=== PATIENT | female | born 1940 | race Caucasian/White ===

== ENCOUNTER 2018-03-21 18:23 | Inpatient (IN) | payer MEDICAID, OTHER ==
[2018-03-21 18:33] LABS: Basophils # (Auto) 0.1 K/mm3 (0.0-0.1); Basophils % (Auto) 1.4 % (0.0-1.8); Eosinophils # (Auto) 0.2 K/mm3 (0.0-0.4); Eosinophils % (Auto) 2.9 % (0.0-4.3); Hemoglobin 14.4 gm/dl (10.1-14.3); Lymphocytes # (Auto) 2.2 K/mm3 (1.2-5.4); Lymphocytes % (Auto) 34.8 % (13.4-35.0); Mean Corpuscular HGB Conc 33 % (30-34); Mean Corpuscular Hemoglobin 30 pg (28-32); Mean Corpuscular Volume 92 fl (79-97); Monocytes # (Auto) 0.6 K/mm3 (0.0-0.8); Monocytes % (Auto) 9.4 % (0.0-7.3); Platelet Count 173 K/mm3 (140-440); Red Blood Count 4.79 M/mm3 (3.65-5.03); Red Cell Distribution Width 14.2 % (13.2-15.2)
[2018-03-21] MEDS ORDERED: NACL ONE (18:39)
--- NOTE | 2018-03-21 18:43 | Cat Scan Report ---
FINAL REPORT PROCEDURE: CT HEAD/BRAIN WO CON TECHNIQUE: Computerized tomography of the head was performed without contrast material. HISTORY: neuro deficits < 6hrs or sx present upon awakening COMPARISON: No prior studies are available for comparison. FINDINGS: There is focal encephalomalacia in the left posterior frontal lobe. Chronic appearing lacunar infarct is seen in the left caudate head. There is no CT evidence of intracranial mass, hemorrhage, acute territorial infarction, or hydrocephalus. Calvarium is intact. Visualized paranasal sinuses and mastoids are aerated. IMPRESSION: No CT evidence of acute intracranial abnormality. Chronic ischemic changes are present.
[2018-03-21 18:45] LABS: BUN/Creatinine Ratio 22; Blood Urea Nitrogen 22 mg/dL (7-17); Hemolysis Index 41; INR 1.63 (0.87-1.13)
[2018-03-21 18:46] LABS: Partial Thromboplastin Time 43.9 Sec. (24.2-36.6)
[2018-03-21] MEDS ORDERED: ASPIRIN PO ONE (19:06)
[2018-03-21 19:10] LABS: Albumin 4.6 g/dL (3.9-5)
[2018-03-21 19:14] LABS: Bilirubin,Direct < 0.2 mg/dL (0-0.2)
--- NOTE | 2018-03-21 19:18 | Emergency Department Report ---
- General Stated complaint: STROKE Time Seen by Provider: 03/21/18 18:27 Source: family, EMS Mode of arrival: Stretcher Limitations: Altered Mental Status - History of Present Illness MD Complaint: focal weakness, numbness, lack of energy, difficulty walking -: Sudden Time: 17:30 Location: [facility] [place], RUE, LLE, RLE Severity: severe Severity scale (0 -10): 10 Quality: numbness, constant Consistency: constant Improves with: none Worsens with: none Context: other (None) Associated Symptoms: confusion. denies: chest pain, fever/chills, nausea/ vomiting, shortness of breath, syncope - Related Data Home Medications Medication Instructions Recorded Confirmed Last Taken Hydrochlorothiazide [HCTZ] 25 mg PO QDAY 10/01/13 03/21/18 10/01/13 09:00 25 Losartan [Cozaar] 100 mg PO DAILY 10/01/13 03/21/18 10/01/13 08:30 100 Metoprolol [Lopressor] 25 mg PO DAILY 10/01/13 03/21/18 10/01/13 09:00 Warfarin [Coumadin] 1.5 mg PO QDAY 10/01/13 03/21/18 09/30/13 17:00 1mg Warfarin [Coumadin] 1 mg PO DAILY 03/21/18 03/21/18 Unknown Allergies Allergy/AdvReac Type Severity Reaction Status Date / Time No Known Allergies Allergy Unverified 08/26/13 09:19 ED Review of Systems ROS: Stated complaint: STROKE Other details as noted in HPI Comment: All other systems reviewed and negative Constitutional: malaise, weakness Eyes: denies: vision change ENT: other (Aphesia) Respiratory: no symptoms reported Cardiovascular: denies: chest pain, palpitations, syncope Endocrine: no symptoms reported Gastrointestinal: denies: abdominal pain, vomiting, diarrhea Genitourinary: denies: dysuria, frequency, hematuria Musculoskeletal: as per HPI Skin: denies: rash, lesions, change in color Neurological: weakness, numbness, paresthesias, confusion Psychiatric: denies: auditory hallucinations, suicidal thoughts Hematological/Lymphatic: denies: easy bleeding, easy bruising ED Past Medical Hx - Past Medical History Hx Hypertension: Yes Hx Arthritis: Yes (Hands) - Surgical History Hx Open Heart Surgery: Yes Hx Appendectomy: Yes Additional Surgical History: Mitral valve surgery 13 yrs ago - Social History Smoking Status: Former Smoker Substance Use Type: None - Medications Home Medications: Home Medications Medication Instructions Recorded Confirmed Last Taken Type Hydrochlorothiazide [HCTZ] 25 mg PO QDAY 10/01/13 03/21/18 10/01/13 09:00 History 25 Losartan [Cozaar] 100 mg PO DAILY 10/01/13 03/21/18 10/01/13 08:30 History 100 Metoprolol [Lopressor] 25 mg PO DAILY 10/01/13 03/21/18 10/01/13 09:00 History Warfarin [Coumadin] 1.5 mg PO QDAY 10/01/13 03/21/18 09/30/13 17:00 History 1mg Warfarin [Coumadin] 1 mg PO DAILY 03/21/18 03/21/18 Unknown History ED Physical Exam - General Limitations: Altered Mental Status General appearance: alert, in no apparent distress - Head Head exam: Present: atraumatic, normocephalic, normal inspection - Eye Eye exam: Present: normal appearance, PERRL - ENT ENT exam: Present: normal orophraynx - Neck Neck exam: Present: normal inspection, full ROM - Respiratory Respiratory exam: Present: normal lung sounds bilaterally. Absent: respiratory distress, wheezes - Cardiovascular Cardiovascular Exam: Present: regular rate, normal rhythm, normal heart sounds - GI/Abdominal GI/Abdominal exam: Present: soft, normal bowel sounds. Absent: tenderness, guarding - Extremities Exam Extremities exam: Present: normal inspection, normal capillary refill - Back Exam Back exam: Present: normal inspection - Neurological Exam Neurological exam: Present: alert, other (Unable to do the NIHSS because patient is not following comands.) - Psychiatric Psychiatric exam: Present: depressed - Skin Skin exam: Present: warm, dry, intact - Assessment Assessment Interval: Baseline - Level of Consciousness 1a. Level of Consciousness: alert - LOC Questions 1b. LOC Questions: answers no questions correctly - LOC Command 1c. LOC Commands: performs no tasks correctly ED Course Vital Signs 03/21/18 03/21/18 03/21/18 18:27 18:32 19:15 Temperature 98.4 F Pulse Rate 92 H 102 H Respiratory 18 26 H Rate Blood Pressure 175/83 172/77 O2 Sat by Pulse 94 94 92 Oximetry 03/21/18 03/21/18 19:30 19:45 Temperature Pulse Rate 100 H 102 H Respiratory 26 H Rate Blood Pressure 174/72 O2 Sat by Pulse 96 Oximetry - Consultations Consultation #1: 03/21/18 18:30 I consulted the neurologist on-call Dr. Martinez. She examined the patient using the telestroke machine. She recommends CTA of the brain and neck. She also said patient is not a candidate for TPA because patient is on Coumadin. However she wants patient to be given aspirin 325 mg by mouth. She will recommend MRI of the brain If the CTA of the head and neck is negative. She also recommends admitting the patient to the hospital for further evaluation and management. ED Medical Decision Making - Lab Data Result diagrams: 03/21/18 18:20 03/21/18 18:20 - EKG Data -: EKG Interpreted by Me EKG shows normal: sinus rhythm Rate: normal - EKG Data When compared to previous EKG there are: previous EKG unavailable Interpretation: nonspecific ST-T wave cheryl, other (Low voltage) - Differential Diagnosis Bilateral Upper and Lower Extremity Weakness. Critical care attestation.: If time is entered above; I have spent that time in minutes in the direct care of this critically ill patient, excluding procedure time. ED Disposition Clinical Impression: Weakness, Bilateral leg paresthesia, Aphasia, Numbness and tingling in both hands HTN (hypertension) Qualifiers: Hypertension type: essential hypertension Qualified Code(s): I10 - Essential ( primary) hypertension Disposition: OP ADMIT IP TO THIS HOSP Is pt being admited?: Yes Does the pt Need Aspirin: Yes Condition: Stable Instructions: Hypertension (ED)
[2018-03-21 19:34] LABS: Alanine Aminotransferase < 5 units/L (7-56)
--- NOTE | 2018-03-21 19:49 | Cat Scan Report ---
FINAL REPORT EXAM: CT ANGIO NECK HISTORY: CVA TECHNIQUE: CT angiogram neck with intravenous contrast and multiplanar reconstructions PRIORS: None. FINDINGS: Origin the great vessels is unremarkable. Common carotid arteries are normal in caliber At the proximal left ICA there is noncalcified plaque with ulceration. No evidence for hemodynamically significant stenosis. There is mild plaque formation proximal right ICA. The distal ICAs are unremarkable without evidence for stenosis or occlusion Both vertebral arteries are identified and are unremarkable. IMPRESSION: Mild plaque formation at the proximal ICAs without evidence for hemodynamically significant stenosis. There is appearance suggestive of an ulcerated plaque at the left carotid bulb
--- NOTE | 2018-03-21 19:50 | Cat Scan Report ---
FINAL REPORT EXAM: CT ANGIO HEAD HISTORY: CVA CT angiogram head with intravenous contrast multiplanar reconstructions PRIORS: None. FINDINGS: Normal appearance of the intracranial portion of the carotid arteries. The MCA and JEREMY distributions are unremarkable Distal vertebral arteries are intact. The basilar and ESL TUTOR circulation is within normal limits No evidence for major vascular occlusion or aneurysm IMPRESSION: Normal CTA head
[2018-03-21] MEDS ORDERED: ASPIRIN ONE (21:26)
[2018-03-21] MEDS ORDERED: ZOFRAN IV PRN (22:46)
[2018-03-21] MEDS ORDERED: DULCOLAX PR PRN (22:46)
[2018-03-21] MEDS ORDERED: SODIUM CHLORIDE FLUSH SYRINGE 10 ML IV PRN (22:46)
[2018-03-21] MEDS ORDERED: APRESOLINE IV PRN (22:46)
--- NOTE | 2018-03-21 22:46 | History and Physical Report ---
History of Present Illness Date of examination: 03/21/18 Date of admission: 03/21/18 21:56 History of present illness: 77 year old woman with history of hypertension, MVR on Coumadin comes to the emergency room with complaints of not able to speak at around 5:30pm. Family also states that she was not able to move her arms and legs. They brought her to the emergency room for evaluation. Patient was not a TPA candidate as she is on Coumadin. Her speech has returned, also she is regaining strength in the legs but she is not back at baseline Review of systems Constitutional: no weight loss, chills Ears, eyes, nose, mouth and throat: no nasal congestion, no nasal discharge, no sinus pressure, no vision change, no red eye. Neck: No neck pain or rigidity. Cardiovascular: no chest pain, palpitations Respiratory: No cough, shortness of breath Gastrointestinal: no abdominal pain, hematochezia Genitourinary : no dysuria, frequency , no hematuria Musculoskeletal: no joint swelling or muscle ache Integumentary: no rash, no pruritis Neurological: no parathesias, no numbness, no focal weakness Endocrine: no cold or heat intolerance, no polyuria or polydipsia Hematologic/Lymphatic: no easy bruising, no easy bleeding, no gland swelling Allergic/Immunologic: no urticaria, no angioedema. PAST MEDICAL HISTORY: hypertension, MVR on Coumadin PAST SURGICAL HISTORY: Appendectomy, mitral valve replacement, and nasal surgery , SOCIAL HISTORY: Denies alcohol, tobacco, drugs FAMILY HISTORY: Hypertension Medications and Allergies Allergies Allergy/AdvReac Type Severity Reaction Status Date / Time No Known Allergies Allergy Unverified 08/26/13 09:19 Home Medications Medication Instructions Recorded Confirmed Last Taken Type Hydrochlorothiazide [HCTZ] 25 mg PO QDAY 10/01/13 03/21/18 10/01/13 09:00 History 25 Losartan [Cozaar] 100 mg PO DAILY 10/01/13 03/21/18 10/01/13 08:30 History 100 Metoprolol [Lopressor] 25 mg PO DAILY 10/01/13 03/21/18 10/01/13 09:00 History Warfarin [Coumadin] 1.5 mg PO QPM 10/01/13 03/21/18 09/30/13 17:00 History 1mg Warfarin [Coumadin] 1 mg PO QPM 03/21/18 03/21/18 Unknown History Active Meds: Active Medications Warfarin Sodium (Coumadin) 5 mg PO ONCE ONE; Protocol Stop: 03/22/18 22:46 Warfarin Sodium (Coumadin Pharmacy To Dose) 1 each PO PKCONSULT RADHA Exam - Physical Exam Narrative exam: Gen. appearance: Patient lying in bed, no apparent distress HEENT: Normocephalic, atraumatic, pupils equally round and reactive to light, extraocular movement intact, and no sclericterus,. No JVD or thyromegaly or nodule,neck supple, no carotid bruit ,mucous membranes moist, no exudate or erythema Heart: S1, S2, regular rate and rhythm Lungs: Clear to auscultation bilaterally, breathing comfortable Abdomen: Positive bowel sounds, nontender, nondistended, no organomegaly Extremity: No edema, cyanosis, clubbing Skin: No rash, nodules, warm, dry Neuro: Oriented 3, facial droop, otherwise normal, speech is fluent, motor 3/5 in lower extremity, poor effort in upper extremity, ensory intact - Constitutional Vitals: Temp Pulse Resp BP Pulse Ox 98.4 F 90 17 142/51 95 03/21/18 18:27 03/21/18 22:00 03/21/18 22:00 03/21/18 22:00 03/21/18 22:00 Results - Labs CBC & Chem 7: 03/21/18 18:20 03/21/18 18:20 Labs: Abnormal lab results 03/21/18 03/21/18 03/21/18 Range/Units 18:20 18:20 18:20 Hgb 14.4 H (10.1-14.3) gm/dl Hct 44.0 H (30.3-42.9) % [place] % (Auto) 9.4 H (0.0-7.3) % PT 20.3 H (12.2-14.9) Sec. INR 1.63 H (0.87-1.13) APTT 43.9 H (24.2-36.6) Sec. Sodium 136 L (137-145) mmol/L Chloride 96.2 L (98-107) mmol/L BUN 22 H (7-17) mg/dL Glucose 148 H (65-100) mg/dL AST (5-40) units/L ALT (7-56) units/L 03/21/18 Range/Units 18:20 Hgb (10.1-14.3) gm/dl Hct (30.3-42.9) % [place] % (Auto) (0.0-7.3) % PT (12.2-14.9) Sec. INR (0.87-1.13) APTT (24.2-36.6) Sec. Sodium (137-145) mmol/L Chloride (98-107) mmol/L BUN (7-17) mg/dL Glucose (65-100) mg/dL AST < 5 L (5-40) units/L ALT < 5 L (7-56) units/L - Imaging and Cardiology CT Scan - head: report reviewed Assessment and Plan CTA head and neck reviewed Assessment Acute CVA Hypertension Mitral valve replacement with subtherapeutic INR Plan Admit to medicine Obtain MRI of the head, do neuro checks Given a dose of Coumadin now, start statin Type [employer] neurology, physical and additional therapy DVT prophylaxis
[2018-03-22] MEDS ORDERED: COUMADIN PO ONE ×2 (00:15→22:45)
[2018-03-22] MEDS: TYLENOL PO PRN (00:16)
[2018-03-22 05:46] LABS: INR 1.7 (0.87-1.13)
[2018-03-22 05:47] LABS: Partial Thromboplastin Time 41.1 Sec. (24.2-36.6)
--- NOTE | 2018-03-22 10:41 | Progress Note ---
Assessment and Plan Assessment and plan: Acute CVA. Cont Stroke protocol. F/UMRI/MRA. Check ECHO and Carotid US. PT/ OT eval. Neuro consult. Hypertension. Cont antihypertensive meds Mitral valve replacement with subtherapeutic INR. Coumadin to maintain INR 2.5- 3.5 Hx NSTEMI with negative cath 2013 History Interval history: No new issues overnight Hospitalist Physical - Constitutional Vitals: Temp Pulse Resp BP Pulse Ox 98.6 F 93 H 18 130/54 96 03/22/18 07:04 03/22/18 07:04 03/22/18 07:04 03/22/18 07:04 03/22/18 07:04 General appearance: Present: no acute distress, well-nourished - EENT Eyes: Present: PERRL, EOM intact ENT: hearing intact, clear oral mucosa, dentition normal - Neck Neck: Present: supple, normal ROM - Respiratory Respiratory effort: normal Respiratory: bilateral: CTA - Cardiovascular Rhythm: regular Heart Sounds: Present: S1 & S2. Absent: gallop, rub - Extremities Extremities: no ischemia, No edema, Full ROM - Abdominal General gastrointestinal: soft, non-tender, non-distended, normal bowel sounds - Integumentary Integumentary: Present: clear, warm, dry - Neurologic Neurologic: CNII-XII intact, moves all extremities Results - Labs CBC & Chem 7: 03/21/18 18:20 03/21/18 18:20 Labs: Laboratory Last Values WBC 6.2 K/mm3 (4.5-11.0) 03/21/18 18:20 RBC 4.79 M/mm3 (3.65-5.03) 03/21/18 18:20 Hgb 14.4 gm/dl (10.1-14.3) H 03/21/18 18:20 Hct 44.0 % (30.3-42.9) H 03/21/18 18:20 MCV 92 fl (79-97) 03/21/18 18:20 MCH 30 pg (28-32) 03/21/18 18:20 MCHC 33 % (30-34) 03/21/18 18:20 RDW 14.2 % (13.2-15.2) 03/21/18 18:20 Plt Count 173 K/mm3 (140-440) 03/21/18 18:20 Lymph % (Auto) 34.8 % (13.4-35.0) 03/21/18 18:20 [place] % (Auto) 9.4 % (0.0-7.3) H 03/21/18 18:20 Eos % (Auto) 2.9 % (0.0-4.3) 03/21/18 18:20 Baso % (Auto) 1.4 % (0.0-1.8) 03/21/18 18:20 Lymph # 2.2 K/mm3 (1.2-5.4) 03/21/18 18:20 [place] # 0.6 K/mm3 (0.0-0.8) 03/21/18 18:20 Eos # 0.2 K/mm3 (0.0-0.4) 03/21/18 18:20 Baso # 0.1 K/mm3 (0.0-0.1) 03/21/18 18:20 Seg Neutrophils % 51.5 % (40.0-70.0) 03/21/18 18:20 Seg Neutrophils # 3.2 K/mm3 (1.8-7.7) 03/21/18 18:20 PT 21.0 Sec. (12.2-14.9) H 03/22/18 05:06 INR 1.70 (0.87-1.13) H 03/22/18 05:06 APTT 41.1 Sec. (24.2-36.6) H 03/22/18 05:06 Thrombin Time 16.6 Sec. (15.1-19.6) 03/21/18 18:20 Sodium 136 mmol/L (137-145) L 03/21/18 18:20 Potassium 3.8 mmol/L (3.6-5.0) 03/21/18 18:20 Chloride 96.2 mmol/L (98-107) L 03/21/18 18:20 Carbon Dioxide 22 mmol/L (22-30) 03/21/18 18:20 Anion Gap 22 mmol/L 03/21/18 18:20 BUN 22 mg/dL (7-17) H 03/21/18 18:20 Creatinine 1.0 mg/dL (0.7-1.2) 03/21/18 18:20 Estimated GFR 53 ml/min 03/21/18 18:20 BUN/Creatinine Ratio 22 % 03/21/18 18:20 Glucose 148 mg/dL (65-100) H 03/21/18 18:20 POC Glucose 191 (70-105) H 03/22/18 01:36 Calcium 9.0 mg/dL (8.4-10.2) 03/21/18 18:20 Total Bilirubin 0.30 mg/dL (0.1-1.2) 03/21/18 18:20 Direct Bilirubin < 0.2 mg/dL (0-0.2) 03/21/18 18:20 Indirect Bilirubin 0.1 mg/dL 03/21/18 18:20 AST < 5 units/L (5-40) L 03/21/18 18:20 ALT < 5 units/L (7-56) L 03/21/18 18:20 Alkaline Phosphatase 107 units/L (35-129) 03/21/18 18:20 Troponin T < 0.010 ng/mL (0.00-0.029) 03/21/18 18:20 Total Protein 7.9 g/dL (6.3-8.2) 03/21/18 18:20 Albumin 4.6 g/dL (3.9-5) 03/21/18 18:20 Albumin/Globulin Ratio 1.4 % 03/21/18 18:20 Triglycerides 258 mg/dL (2-149) H 03/22/18 05:06 Cholesterol 165 mg/dL (50-199) 03/22/18 05:06 LDL Cholesterol Direct 96 mg/dL (50-130) 03/22/18 05:06 HDL Cholesterol 33 mg/dL (40-59) L 03/22/18 05:06 Cholesterol/HDL Ratio 5.00 % 03/22/18 05:06
--- NOTE | 2018-03-22 12:28 | Consultation ---
History of Present Illness Consult date: 03/22/18 Requesting physician: KEITH DOMINGO Reason for Consult: Acute CVA. Chief complaint: Unable to speak. History of present illness: 77 years old right handed female with a past medical history of HTN, MVR on Coumadin presented for acute onset, unable to speech, both leg weakness, can't ambulate, collapsed. She was home, then noted by family having these symptoms. She was in the windows for IV TPA. However, she was on Coumadin, exclude it. She has stat CTA head and neck, didn't show big artery occlusion. She was admitted for further evaluation and management. Past History Past Medical History: hypertension, other (mitrial valave disease.) Past Surgical History: Other (matrial valve replacement.) Social history: no significant social history, other (remote smoker.) Family history: cancer Medications and Allergies Allergies Allergy/AdvReac Type Severity Reaction Status Date / Time No Known Allergies Allergy Unverified 08/26/13 09:19 Home Medications Medication Instructions Recorded Confirmed Last Taken Type Hydrochlorothiazide [HCTZ] 25 mg PO QDAY 10/01/13 03/21/18 10/01/13 09:00 History 25 Losartan [Cozaar] 100 mg PO DAILY 10/01/13 03/21/18 10/01/13 08:30 History 100 Metoprolol [Lopressor] 25 mg PO DAILY 10/01/13 03/21/18 10/01/13 09:00 History Warfarin [Coumadin] 1.5 mg PO QPM 10/01/13 03/21/18 09/30/13 17:00 History 1mg Warfarin [Coumadin] 1 mg PO QPM 03/21/18 03/21/18 Unknown History Active Meds: Active Medications Acetaminophen (Tylenol) 650 mg PO Q4H PRN PRN Reason: Pain, Mild (1-3) Last Admin: 03/22/18 00:16 Dose: 650 mg Bisacodyl (Dulcolax) 10 mg [place] QDAY PRN PRN Reason: Constipation Hydralazine HCl (Apresoline) 5 mg IV Q6H PRN PRN Reason: Keep SBP between 160-185 mm Hg Last Admin: 03/22/18 00:13 Dose: 5 mg Magnesium Hydroxide (Milk Of Magnesia) 30 ml PO Q4H PRN PRN Reason: Constipation Ondansetron HCl (Zofran) 4 mg IV Q8H PRN PRN Reason: N/V unrelieved by Reglan Sodium Chloride (Sodium Chloride Flush Syringe 10 Ml) 10 ml IV PRN PRN PRN Reason: LINE FLUSH Warfarin Sodium (Coumadin Pharmacy To Dose) 1 each PO PKCONSULT [facility] Warfarin Sodium (Coumadin) 5 mg PO DAILY@1700 RADHA Review of Systems All systems: negative Physical Examination - Vital Signs Vital Signs: Vital Signs Temp Pulse Resp BP Pulse Ox 98.4 F 92 H 18 175/83 94 03/21/18 18:27 03/21/18 18:27 03/21/18 18:27 03/21/18 18:27 03/21/18 18:27 - Constitutional General appearance: comfortable - EENT EENT: Present: ATNC, PERRL - Respiratory Respiratory: Present: chest non-tender, lungs clear, normal breath sounds, no respiratory distress - Cardiovascular Cardiovascular: Present: no murmurs Extremities: Present: no peripheral edema bilatateraly, no clubbing, cyanosis - Gastrointestinal Gastrointestinal: Present: normoactive bowel sounds, soft, non-tender - Integumentary Integumentary: Present: normal - Neurologic Cranial nerve examination: PERRL, EOMI, face symmetric, other (Left side vision loss, not new, long time.) Speech examination: intact Detailed motor examination: other (Nother upper 4/5, lowers 2/5, right side worse.) Detailed sensory examination: other (Decreased sensation in the side side.) Reflex and gait examination: intact Reflexes: 1+: ankle, bicep, knee, tricep - Psychiatric Psychiatric: Present: mood/affect appropriate - Assessment Assessment Interval: Baseline - Level of Consciousness 1a. Level of Consciousness: alert - LOC Questions 1b. LOC Questions: answers no questions correctly - LOC Command 1c. LOC Commands: performs no tasks correctly - Best Gaze 2. Best Gaze: normal - Visual 3. Visual: no visual loss - Facial Palsy 4. Facial Palsy: normal symmetrical movement - Motor Arm 5b. Motor Arm Right: no drift 5a. Motor Arm Left: no drift - Motor Leg 6a. Motor Leg Left: no drift 6b. Motor Leg Right: no drift - Limb Ataxia 7. Limb Ataxia: absent - Sensory 8. Sensory: normal - Best Language 9. Best Language: no aphasia - Dysarthria 10. Dysarthria: normal - Extinction and Inattention 11. Extinction/Inattention: no abnormality - Scoring Total Score: 4 Stroke Severity: Minor Stroke Results - Laboratory Findings CBC and BMP: 03/21/18 18:20 03/21/18 18:20 Abnormal Lab Findings: Abnormal Labs 03/21/18 03/21/18 03/21/18 18:20 18:20 18:20 Hgb 14.4 H Hct 44.0 H [place] % (Auto) 9.4 H PT 20.3 H INR 1.63 H APTT 43.9 H Sodium 136 L Chloride 96.2 L BUN 22 H Glucose 148 H POC Glucose AST ALT Triglycerides HDL Cholesterol 03/21/18 03/22/18 03/22/18 18:20 01:36 05:06 Hgb Hct [place] % (Auto) PT 21.0 H INR 1.70 H APTT 41.1 H Sodium Chloride BUN Glucose POC Glucose 191 H AST < 5 L ALT < 5 L Triglycerides HDL Cholesterol 03/22/18 05:06 Hgb Hct [place] % (Auto) PT INR APTT Sodium Chloride BUN Glucose POC Glucose AST ALT Triglycerides 258 H HDL Cholesterol 33 L Assessment and Plan 1. Acute onset, unable to speak, both leg weakness, now all extremities weakness. Acute CVA as differential, probably brain stem. OT/PT, rehab and speech pathology. Pending brain MRI without contrast. Stat CTA head and neck, no big artery occlusion. 2. She is on Coumadin. Cervical spinal epidural or subdural hematoma as differential. Cervical and thoracic MRI without contrast. If spinal hematoma, consult neurosurgery for possible evacuation and decompression. 3. If transverse myelitis or neuromyelitis optica, suggest high dose steroid and LP, CSF studies. 4. If acute disseminated encephalomyelitis. Also suggest high dose steroid. 5. Mitrial valve replacement on Coumadin. Continue Coumadin and have INR in therapeutic range. 6. HTN. Controlled. Medicine. LDL 96. Pending A1c. 7. Plan discussed with her, her daughter and her son in law. 8. Will follow up with you. 9. If D/C, F/U with neurology in 4-6 weeks.
--- NOTE | 2018-03-22 15:27 | Magnetic Resonance Report ---
MRI OF THE BRAIN WITHOUT CONTRAST: HISTORY: CVA COMPARISON: CT head dated 03/21/18. PROCEDURE: Multiplanar, multisequence MR imaging of the brain without IV contrast was performed. FINDINGS: Diffusion images demonstrate 4 small areas of diffusion restriction measuring less than 1 cm within the left high radiata, left subinsular cortex and left posterior temporal white matter. There is no evidence for hemorrhage, mass or extra-axial fluid collection. A chronic, small cortical infarct high in the left occipital lobe is noted on flair image 18 measuring 1.5 x 1.4 cm. There are multiple chronic focal infarcts in the right cerebellar hemisphere which is best appreciated on T2 axial image 6. There are approximately 5 chronic focal infarcts in the right cerebellum. A single focal chronic infarct is noted in the left cerebellum. Mild cortical volume loss and moderate chronic white matter changes are identified. The midline structures are central. The basal cisterns are patent. Normal ventricular size. The orbital cavities and sella turcica demonstrate no abnormality. The visualized paranasal sinuses and mastoid air cells are well aerated. IMPRESSION: 4 small foci of subacute ischemia are identified in the left MCA distribution as described. Multiple small chronic focal infarcts in the left occipital lobe and bilateral cerebellar hemispheres. Volume loss. Chronic white matter changes.
[2018-03-22] MEDS ORDERED: COUMADIN PO SCH (17:00)
[2018-03-23 06:15] LABS: Basophils # (Auto) 0.1 K/mm3 (0.0-0.1); Basophils % (Auto) 1.3 % (0.0-1.8); Eosinophils # (Auto) 0.2 K/mm3 (0.0-0.4); Eosinophils % (Auto) 3.5 % (0.0-4.3); Hematocrit 40.7 % (30.3-42.9); Hemoglobin 13.4 gm/dl (10.1-14.3); Lymphocytes # (Auto) 1.3 K/mm3 (1.2-5.4); Lymphocytes % (Auto) 19.8 % (13.4-35.0); Mean Corpuscular HGB Conc 33 % (30-34); Mean Corpuscular Hemoglobin 30 pg (28-32); Mean Corpuscular Volume 91 fl (79-97); Monocytes # (Auto) 0.6 K/mm3 (0.0-0.8); Monocytes % (Auto) 8.9 % (0.0-7.3); Platelet Count 170 K/mm3 (140-440); Red Blood Count 4.49 M/mm3 (3.65-5.03); Red Cell Distribution Width 14.5 % (13.2-15.2)
[2018-03-23 06:26] LABS: INR 2.15 (0.87-1.13)
[2018-03-23 06:46] LABS: BUN/Creatinine Ratio 28; Blood Urea Nitrogen 22 mg/dL (7-17); Calcium 8.9 mg/dL (8.4-10.2); Hemolysis Index 11
--- NOTE | 2018-03-23 10:19 | Progress Note ---
Assessment and Plan 1. Acute onset, unable to speak, both leg weakness, now all extremities weakness. Speech back to normal. Brain MRI without contrast, multiple embolic infarcts. Probably cardiogenic. TTE, EF 60-65%, no vegetation or thrombus reported. OT/PT, rehab and speech pathology. Stat CTA head and neck, no big artery occlusion, no significant stenosis. 2. All extremities weakness. Cervical and lumbar MRI without contrast. 3. Mitrial valve replacement on Coumadin. Continue Coumadin and have INR in therapeutic range. 4. Right leg pains. Right leg DVT as differential. Suggest ultrasound. 5. HTN. Controlled. Medicine. LDL 96. Pending A1c. 6. Plan discussed with her, her daughter and her nurse. 7. Will follow up with you. 8. If D/C, F/U with neurology in 4-6 weeks. Subjective Date of service: 03/23/18 Principal diagnosis: Embolic CVA. Interval history: Improved. Right leg pain. Objective - Vital Sign Vital Signs - 12hr 03/22/18 03/23/18 03/23/18 23:34 00:04 06:06 Temperature 97.2 F L 98.3 F Pulse Rate 101 H 96 H 84 Respiratory 18 20 Rate Blood Pressure 126/54 Blood Pressure 126/54 111/68 [Left] O2 Sat by Pulse 98 98 98 Oximetry 03/23/18 07:32 Temperature 98.0 F Pulse Rate 91 H Respiratory 18 Rate Blood Pressure 119/49 Blood Pressure [Left] O2 Sat by Pulse 96 Oximetry - General Apperance Constitutional: comfortable - EENT EENT: ATNC, PERRL - Respiratory Respiratory: lungs clear, normal breath sounds - Cardiovascular Cardiovascular: regular rate, no murmurs Extremities: no clubbing, cyanosis - Gastrointestinal Gastrointestinal: soft, non-tender - Integumentary Integumentary: normal - Neurologic Cranial nerve examination: PERRL, EOMI, intact Detailed motor examination: other (Right upper 3/5, right lower 2/5, left side 4 /5. ) Detailed sensory examination: other (Right side decreased sensation. Right leg tenderness, right leg radidation pains.) Reflexes: 1+: ankle, bicep, knee, tricep - Musculoskeletal Musculoskeletal: pain in joint - Psychiatric Psychiatric: mood/affect appropriate - Laboratory Findings CBC and BMP: 03/23/18 05:15 03/23/18 05:15 Abnormal Lab Findings: Abnormal Labs 03/21/18 03/21/18 03/21/18 18:20 18:20 18:20 Hgb 14.4 H Hct 44.0 H [place] % (Auto) 9.4 H PT 20.3 H INR 1.63 H APTT 43.9 H Sodium 136 L Chloride 96.2 L BUN 22 H Glucose 148 H POC Glucose AST ALT Triglycerides HDL Cholesterol 03/21/18 03/22/18 03/22/18 18:20 01:36 05:06 Hgb Hct [place] % (Auto) PT 21.0 H INR 1.70 H APTT 41.1 H Sodium Chloride BUN Glucose POC Glucose 191 H AST < 5 L ALT < 5 L Triglycerides HDL Cholesterol 03/22/18 03/22/18 03/23/18 05:06 16:18 05:15 Hgb Hct [place] % (Auto) PT 25.4 H INR 2.15 H APTT Sodium Chloride BUN Glucose POC Glucose 116 H AST ALT Triglycerides 258 H HDL Cholesterol 33 L 03/23/18 03/23/18 05:15 05:15 Hgb Hct [place] % (Auto) 8.9 H PT INR APTT Sodium Chloride BUN 22 H Glucose 117 H POC Glucose AST ALT Triglycerides HDL Cholesterol
--- NOTE | 2018-03-23 11:23 | Progress Note ---
Assessment and Plan Assessment and plan: Acute CVA. Cont Stroke protocol. Brain MRI without contrast, multiple embolic infarcts. Probably cardiogenic. TTE, EF 60-65%, no vegetation or thrombus reported. OT/PT, rehab and speech pathology. CTA head and neck, no big artery occlusion, no significant stenosis. Neurology following Bilateral extremity weakness. Neurology recommends cervical and lumbar MRI without contrast. Follow-up results. Right lower extremity pain. Follow-up Doppler ultrasound. Hypertension. Cont antihypertensive meds Mitral valve replacement with subtherapeutic INR. Coumadin to maintain INR 2.5- 3.5 Hx NSTEMI with negative cath 2013 History Interval history: No new issues overnight Hospitalist Physical - Constitutional Vitals: Temp Pulse Resp BP Pulse Ox 98.0 F 91 H 18 119/49 96 03/23/18 07:32 03/23/18 07:32 03/23/18 07:32 03/23/18 07:32 03/23/18 07:32 General appearance: Present: no acute distress, well-nourished - EENT Eyes: Present: PERRL, EOM intact ENT: hearing intact, clear oral mucosa, dentition normal - Neck Neck: Present: supple, normal ROM - Respiratory Respiratory effort: normal Respiratory: bilateral: CTA - Cardiovascular Rhythm: regular Heart Sounds: Present: S1 & S2. Absent: gallop, rub - Extremities Extremities: no ischemia, No edema, Full ROM - Abdominal General gastrointestinal: soft, non-tender, non-distended, normal bowel sounds - Integumentary Integumentary: Present: clear, warm, dry - Neurologic Neurologic: CNII-XII intact, moves all extremities Results - Labs CBC & Chem 7: 03/23/18 05:15 03/23/18 05:15 Labs: Laboratory Last Values WBC 6.7 K/mm3 (4.5-11.0) 03/23/18 05:15 RBC 4.49 M/mm3 (3.65-5.03) 03/23/18 05:15 Hgb 13.4 gm/dl (10.1-14.3) 03/23/18 05:15 Hct 40.7 % (30.3-42.9) 03/23/18 05:15 MCV 91 fl (79-97) 03/23/18 05:15 MCH 30 pg (28-32) 03/23/18 05:15 MCHC 33 % (30-34) 03/23/18 05:15 RDW 14.5 % (13.2-15.2) 03/23/18 05:15 Plt Count 170 K/mm3 (140-440) 03/23/18 05:15 Lymph % (Auto) 19.8 % (13.4-35.0) 03/23/18 05:15 [place] % (Auto) 8.9 % (0.0-7.3) H 03/23/18 05:15 Eos % (Auto) 3.5 % (0.0-4.3) 03/23/18 05:15 Baso % (Auto) 1.3 % (0.0-1.8) 03/23/18 05:15 Lymph # 1.3 K/mm3 (1.2-5.4) 03/23/18 05:15 [place] # 0.6 K/mm3 (0.0-0.8) 03/23/18 05:15 Eos # 0.2 K/mm3 (0.0-0.4) 03/23/18 05:15 Baso # 0.1 K/mm3 (0.0-0.1) 03/23/18 05:15 Seg Neutrophils % 66.5 % (40.0-70.0) 03/23/18 05:15 Seg Neutrophils # 4.5 K/mm3 (1.8-7.7) 03/23/18 05:15 PT 25.4 Sec. (12.2-14.9) H 03/23/18 05:15 INR 2.15 (0.87-1.13) H 03/23/18 05:15 APTT 41.1 Sec. (24.2-36.6) H 03/22/18 05:06 Thrombin Time 16.6 Sec. (15.1-19.6) 03/21/18 18:20 Sodium 142 mmol/L (137-145) 03/23/18 05:15 Potassium 3.9 mmol/L (3.6-5.0) 03/23/18 05:15 Chloride 102.7 mmol/L (98-107) 03/23/18 05:15 Carbon Dioxide 25 mmol/L (22-30) 03/23/18 05:15 Anion Gap 18 mmol/L 03/23/18 05:15 BUN 22 mg/dL (7-17) H 03/23/18 05:15 Creatinine 0.8 mg/dL (0.7-1.2) 03/23/18 05:15 Estimated GFR > 60 ml/min 03/23/18 05:15 BUN/Creatinine Ratio 28 % 03/23/18 05:15 Glucose 117 mg/dL (65-100) H 03/23/18 05:15 POC Glucose 116 (70-105) H 03/22/18 16:18 Calcium 8.9 mg/dL (8.4-10.2) 03/23/18 05:15 Total Bilirubin 0.30 mg/dL (0.1-1.2) 03/21/18 18:20 Direct Bilirubin < 0.2 mg/dL (0-0.2) 03/21/18 18:20 Indirect Bilirubin 0.1 mg/dL 03/21/18 18:20 AST < 5 units/L (5-40) L 03/21/18 18:20 ALT < 5 units/L (7-56) L 03/21/18 18:20 Alkaline Phosphatase 107 units/L (35-129) 03/21/18 18:20 Troponin T < 0.010 ng/mL (0.00-0.029) 03/21/18 18:20 Total Protein 7.9 g/dL (6.3-8.2) 03/21/18 18:20 Albumin 4.6 g/dL (3.9-5) 03/21/18 18:20 Albumin/Globulin Ratio 1.4 % 03/21/18 18:20 Triglycerides 258 mg/dL (2-149) H 03/22/18 05:06 Cholesterol 165 mg/dL (50-199) 03/22/18 05:06 LDL Cholesterol Direct 96 mg/dL (50-130) 03/22/18 05:06 HDL Cholesterol 33 mg/dL (40-59) L 03/22/18 05:06 Cholesterol/HDL Ratio 5.00 % 03/22/18 05:06
[2018-03-23] MEDS: TYLENOL PO PRN ×2 (11:25→19:46)
--- NOTE | 2018-03-23 14:42 | Consultation ---
History of Present Illness Consult date: 03/23/18 Requesting physician: KEITH DOMINGO Consult reason: other (cva, h/o MVR) History of present illness: The pt is a 77 YO female with a past medical history significant for HTN, HLP, rheumatic fever as a child, s/p mitral valve replacement with mechanical valve in 1998 in [place], anticoagulated with coumadin. She is previously unknown to our practice. She presented on 03/21/2018 with complaints of weakness and difficulty speaking. Per pt's daughter at bedside,pt c/o headache for 4-5 days prior to admission and was noted to have low BPs (90s/50s). Pt was in her normal state of health on the day of admission. The patient ate lunch and went to her room. The patient was found lying on the floor in her room around 5:30PM and was noted to have generalized weakness and difficulty speaking. The pt's daughter took her BP and noted SBP to be 180s-190s and EMS was called. Brain MRI shows 4 small foci of subacute ischemia in the left MCA distribution, multiple small chronic focal infarcts in the left occipital lobe and bilateral cerebellar hemispheres. Echo done yesterday showed EF 60-65%, mechanical mitral valve prosthesis well seated with normal function, trace MR, RA mildly dilated, mild to mod TR, mod pulm HTN with RVSP 50mmHg. On evaluation, pt states she is still experiencing weakness (right side worse than left side), BLE pain, BLE numbness and difficulty swallowing. Pt's daughter reports that pt has her INR monitored at a coumadin clinic in [place], [place]. She reports full compliance with coumadin - last INR check was 2 weeks ago. INR at admission was 1.63. Past History Past Medical History: hypertension, hyperlipidemia, other (Rheumatic fever as a child, s/p MVR) Past Surgical History: Other (s/p mechanical MVR) Social history: lives with family, other (remote smoker.). denies: smoking, alcohol abuse, prescription drug abuse Family history: cancer Medications and Allergies Allergies Allergy/AdvReac Type Severity Reaction Status Date / Time No Known Allergies Allergy Unverified 08/26/13 09:19 Home Medications Medication Instructions Recorded Confirmed Last Taken Type Hydrochlorothiazide [HCTZ] 25 mg PO QDAY 10/01/13 03/23/18 03/20/18 History Losartan [Cozaar] 100 mg PO DAILY 10/01/13 03/23/18 03/20/18 History Metoprolol [Lopressor] 25 mg PO DAILY 10/01/13 03/23/18 03/20/18 History Warfarin [Coumadin] 1.5 mg PO QPM 10/01/13 03/23/18 03/20/18 History Warfarin [Coumadin] 1 mg PO QPM 03/21/18 03/23/18 03/19/18 History Active Meds: Active Medications Acetaminophen (Tylenol) 650 mg PO Q4H PRN PRN Reason: Pain, Mild (1-3) Last Admin: 03/23/18 11:25 Dose: 650 mg Bisacodyl (Dulcolax) 10 mg AK QDAY PRN PRN Reason: Constipation Hydralazine HCl (Apresoline) 5 mg IV Q6H PRN PRN Reason: Keep SBP between 160-185 mm Hg Last Admin: 03/22/18 00:13 Dose: 5 mg Hydrochlorothiazide (Hctz) 25 mg PO QDAY [facility] Losartan Potassium (Cozaar) 100 mg PO QDAY [facility] Magnesium Hydroxide (Milk Of Magnesia) 30 ml PO Q4H PRN PRN Reason: Constipation Metoprolol Tartrate (Lopressor) 25 mg PO DAILY [facility] Ondansetron HCl (Zofran) 4 mg IV Q8H PRN PRN Reason: N/V unrelieved by Reglan Sodium Chloride (Sodium Chloride Flush Syringe 10 Ml) 10 ml IV PRN PRN PRN Reason: LINE FLUSH Warfarin Sodium (Coumadin Pharmacy To Dose) 1 each PO PKCONSULT [facility] Warfarin Sodium (Coumadin) 3 mg PO DAILY@1700 [facility] Review of Systems Constitutional: weakness, no weight loss, no weight gain, no fever, no chills, no sweats Ears, nose, mouth and throat: no ear pain, no nose pain, no sinus pressure, no sinus pain Cardiovascular: high blood pressure, no chest pain, no orthopnea, no palpitations, no rapid/irregular heart beat, no edema, no syncope, no lightheadedness, no shortness of breath, no dyspnea on exertion, no paroxysmal nocturnal dyspnea Respiratory: no cough, no shortness of breath, no dyspnea on exertion, no congestion, no wheezing, no pain on inspiration Gastrointestinal: no abdominal pain, no nausea, no vomiting, no diarrhea, no constipation, no change in bowel habits Genitourinary Female: no pelvic pain, no flank pain, no dysuria, no urinary frequency, no urgency Musculoskeletal: muscle weakness (R > L), no neck stiffness, no neck pain, no shooting arm pain, no arm numbness/tingling, no low back pain, no shooting leg pain, no leg numbness/tingling, no redness of joints Neurological: weakness (R >L), numbness (BLE), headaches, change in speech, no tingling, no seizures, no syncope, no vertigo, no change in mentation Psychiatric: no anxiety, no memory loss Endocrine: no cold intolerance, no heat intolerance Hematologic/Lymphatic: no easy bruising, no easy bleeding, no lymphadenopathy Allergic/Immunologic: no urticaria, no wheezing, no persistent infections Physical Examination Vital Signs Temp Pulse Resp BP Pulse Ox 98.4 F 92 H 18 175/83 94 03/21/18 18:27 03/21/18 18:27 03/21/18 18:27 03/21/18 18:27 03/21/18 18:27 General appearance: no acute distress HEENT: Positive: PERRL, Normocephaly, Mucus Membranes Moist Neck: Positive: neck supple, trachea midline Cardiac: Positive: Reg Rate and Rhythm, S1/S2, Other (valve click) Lungs: Positive: clear to auscultation Neuro: Positive: Weakness (R>L) Abdomen: Positive: Soft. Negative: Tender Skin: Positive: Clear. Negative: Rash, Wound Musculoskeletal: No Fluid Collection, No Pain Extremities: Absent: edema Results 03/23/18 05:15 03/23/18 05:15 Coagulation 03/23/18 Range/Units 05:15 PT 25.4 H (12.2-14.9) Sec. INR 2.15 H (0.87-1.13) CBC 03/23/18 Range/Units 05:15 WBC 6.7 (4.5-11.0) K/mm3 RBC 4.49 (3.65-5.03) M/mm3 Hgb 13.4 (10.1-14.3) gm/dl Hct 40.7 (30.3-42.9) % Plt Count 170 (140-440) K/mm3 Lymph # 1.3 (1.2-5.4) K/mm3 [place] # 0.6 (0.0-0.8) K/mm3 Eos # 0.2 (0.0-0.4) K/mm3 Baso # 0.1 (0.0-0.1) K/mm3 Comprehensive Metabolic Panel 03/23/18 Range/Units 05:15 Sodium 142 (137-145) mmol/L Potassium 3.9 (3.6-5.0) mmol/L Chloride 102.7 (98-107) mmol/L Carbon Dioxide 25 (22-30) mmol/L BUN 22 H (7-17) mg/dL Creatinine 0.8 (0.7-1.2) mg/dL Glucose 117 H (65-100) mg/dL Calcium 8.9 (8.4-10.2) mg/dL - Imaging and Cardiology Echo: report reviewed (EF 60-65%, mechanical mitral valve prosthesis well seated with normal function, trace MR, RA mildly dilated, mild to mod TR, mod pulm HTN with RVSP 50mmHg) EKG: report reviewed, image reviewed EKG interpretations - Telemetry EKG Rhythm: Sinus Rhythm - EKG Sinus rhythms and dysrhythmias: sinus rhythm Assessment and Plan Assessment: Subacute ischemic CVA H/o rheumatic fever as a child, s/p mitral valve replacement with mechanical valve in 1998 in [place] Anticoagulated with coumadin - subtherapeutic INR on admission Accelerated HTN HLP Plan: Okay to continue coumadin per neurology. Cont with tx INR 2-3. For JULIO C in AM to further evaluate for cardiogenic source of CVA. Indications, potential risks and benefits of JULIO C reviewed with pt and pt's daughter at bedside and they are agreeable to proceed. Plan for JULIO C tomorrow ~10:30AM. NPO after MN. Consider ischemic evaluation as OP. Assessment and plan reviewed with pt and pt's daughter at bedside. The patient has been seen in conjunction with Dr. HUGH Aviles who agrees with the assessment and plan of care.
[2018-03-23] MEDS ORDERED: COUMADIN PO SCH ×3 (17:00→18:00)
--- NOTE | 2018-03-23 20:43 | Magnetic Resonance Report ---
FINAL REPORT EXAM: MR CERVICAL SPINE WO CON HISTORY: ALL EXTREMITIE WEAKNESS. TECHNIQUE: MRI was performed of the cervical spine using the following pulse sequences: Axial: 2D MERGE, T2 FR FSE Sagittal: T1, T2 and STIR PRIORS: None. FINDINGS: The vertebral bodies have normal height and alignment and cervical lordosis is preserved. The paraspinous soft tissues are unremarkable. The cervical cord has a normal signal intensity and appearance. The craniocervical junction is unremarkable. There is an incidental 5 mm cyst near the T1-2 right neuroforamen most likely a nerve root sheath cyst. C2-3: No significant degenerative changes. No spinal or foraminal stenosis. C3-4: Mild posterior osteophyte disc complex. No spinal or foraminal stenosis. C4-5: Mild posterior osteophyte disc complex. Severe right facet hypertrophy. No spinal stenosis. Moderate to severe right neural foraminal narrowing.. C5-6: Moderate posterior osteophyte disc complex. Mild spinal stenosis with an AP dimension of the thecal sac of 8 mm compared with 12 mm at the normal level below. C6-7: No significant degenerative changes. No spinal or foraminal stenosis. C7-T1: No significant degenerative changes. No spinal or foraminal stenosis. IMPRESSION: Degenerative disc disease from C3-4 through C5-6. 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
--- NOTE | 2018-03-23 21:09 | Magnetic Resonance Report ---
FINAL REPORT EXAM: MR LUMBAR SPINE WO CON HISTORY: ALL EXTREMITIE WEAKNESS. TECHNIQUE: MRI of the lumbar spine: Axial: T1, T2 Sagittal: T1, T2 and STIR PRIORS: None. FINDINGS: The lumbar vertebral bodies have normal height and alignment and lumbar lordosis is preserved. The paraspinous soft tissues are unremarkable. The conus medullaris is in a normal location and has a normal signal intensity and appearance. 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 The following levels were evaluated in the axial plane: T11-12: Mild loss of disc height. Medium-sized broad-based posterior disc bulge with resultant moderate spinal stenosis. The AP dimension of the thecal sac is 7 mm compared with 1.5 cm at T12-L1. There is no foraminal stenosis. T12-L1 to L2-L3: No disc bulge or protrusion. The facet joints appear well preserved. No spinal or foraminal stenosis. L3-L4: Small broad-based posterior disc bulge. Mild bilateral facet and ligamentum flavum hypertrophy. No spinal or foraminal stenosis. L4-L5: Large circumferential disc bulge. Moderate bilateral facet and ligamentum flavum hypertrophy. There is moderate spinal stenosis. No foraminal stenosis. L5-S1: Mild broad-based posterior disc bulge. Moderate bilateral facet hypertrophy. There is moderate bilateral neural foraminal narrowing. IMPRESSION: 1. Multilevel degenerative disc disease. Changes are most pronounced at T11-12 where there is a medium-sized broad-based posterior disc bulge with resultant moderate spinal stenosis and at L4-5 where there is a large circumferential disc bulge with resultant moderate spinal stenosis. 2. Please see the full description of findings above.
[2018-03-24 06:09] LABS: Basophils # (Auto) 0.1 K/mm3 (0.0-0.1); Basophils % (Auto) 0.9 % (0.0-1.8); Eosinophils # (Auto) 0.1 K/mm3 (0.0-0.4); Eosinophils % (Auto) 1.6 % (0.0-4.3); Hematocrit 40.2 % (30.3-42.9); Hemoglobin 13.5 gm/dl (10.1-14.3); Lymphocytes # (Auto) 0.9 K/mm3 (1.2-5.4); Lymphocytes % (Auto) 10.9 % (13.4-35.0); Mean Corpuscular HGB Conc 34 % (30-34); Mean Corpuscular Hemoglobin 30 pg (28-32); Mean Corpuscular Volume 90 fl (79-97); Monocytes # (Auto) 0.8 K/mm3 (0.0-0.8); Monocytes % (Auto) 10.3 % (0.0-7.3); Platelet Count 153 K/mm3 (140-440); Red Blood Count 4.45 M/mm3 (3.65-5.03); Red Cell Distribution Width 13.9 % (13.2-15.2)
[2018-03-24 06:18] LABS: INR 2.63 (0.87-1.13)
[2018-03-24 06:33] LABS: BUN/Creatinine Ratio 24; Blood Urea Nitrogen 19 mg/dL (7-17); Calcium 8.7 mg/dL (8.4-10.2); Hemolysis Index 7
[2018-03-24] MEDS ORDERED: NON-FORMULARY (Losartan [Cozaar] 100 MG) PO SCH (10:00)
[2018-03-24] MEDS ORDERED: LOPRESSOR PO SCH (10:00)
--- NOTE | 2018-03-24 10:07 | Progress Note ---
Assessment and Plan 1. Acute onset, unable to speak, both leg weakness, now all extremities weakness. Speech back to normal. Brain MRI without contrast, multiple embolic infarcts. Probably cardiogenic. TTE, EF 60-65%, no vegetation or thrombus reported. OT/PT, rehab and speech pathology. Stat CTA head and neck, no big artery occlusion, no significant stenosis. 2. All extremities weakness. Cervical and lumbar MRI without contrast, DDD, moderate spinal stenosis. T1-2 small cyst. Thoracic MRI without contrast, suggest neurosurgery or orthopaedic consult. 3. Mitrial valve replacement on Coumadin. Continue Coumadin and have INR in therapeutic range. Cardiology on board. 4. Right leg pains. Right leg DVT as differential. Pending ultrasound. 5. HTN. Controlled. Medicine. LDL 96. Pending A1c. internal medicine. 6. Plan discussed with her. 7. Will follow up with you PRN. 8. If D/C, F/U with neurology in 4-6 weeks. Subjective Date of service: 03/24/18 Principal diagnosis: Embolic CVA. Interval history: Stable, no neurological complaints Objective - Vital Sign Vital Signs - 12hr 03/23/18 03/24/18 03/24/18 22:30 00:08 03:24 Temperature 98.8 F 98.4 F Pulse Rate 82 97 H Pulse Rate [ 88 Apical] Respiratory 18 20 18 Rate Blood Pressure 173/70 140/61 O2 Sat by Pulse 100 98 98 Oximetry - General Apperance Constitutional: comfortable - Respiratory Respiratory: normal breath sounds, no respiratory distress - Cardiovascular Cardiovascular: regular rate, no murmurs - Gastrointestinal Gastrointestinal: soft, non-tender - Neurologic Cranial nerve examination: PERRL, EOMI, intact Detailed motor examination: other (Right lower 2/5, left 3/5, upper 4/5 bilaterally.) Detailed sensory examination: other (Right side decreased sensation.) Reflexes: 1+: ankle, bicep, knee, tricep - Psychiatric Psychiatric: mood/affect appropriate - Laboratory Findings CBC and BMP: 03/24/18 05:22 03/24/18 05:22 Abnormal Lab Findings: Abnormal Labs 03/21/18 03/21/18 03/21/18 18:20 18:20 18:20 Hgb 14.4 H Hct 44.0 H Lymph % (Auto) [place] % (Auto) 9.4 H Lymph # Seg Neutrophils % PT 20.3 H INR 1.63 H APTT 43.9 H Sodium 136 L Chloride 96.2 L BUN 22 H Glucose 148 H POC Glucose AST ALT Triglycerides HDL Cholesterol 03/21/18 03/22/18 03/22/18 18:20 01:36 05:06 Hgb Hct Lymph % (Auto) [place] % (Auto) Lymph # Seg Neutrophils % PT 21.0 H INR 1.70 H APTT 41.1 H Sodium Chloride BUN Glucose POC Glucose 191 H AST < 5 L ALT < 5 L Triglycerides HDL Cholesterol 03/22/18 03/22/18 03/23/18 05:06 16:18 05:15 Hgb Hct Lymph % (Auto) [place] % (Auto) Lymph # Seg Neutrophils % PT 25.4 H INR 2.15 H APTT Sodium Chloride BUN Glucose POC Glucose 116 H AST ALT Triglycerides 258 H HDL Cholesterol 33 L 03/23/18 03/23/18 03/24/18 05:15 05:15 05:22 Hgb Hct Lymph % (Auto) [place] % (Auto) 8.9 H Lymph # Seg Neutrophils % PT 29.9 H INR 2.63 H APTT Sodium Chloride BUN 22 H Glucose 117 H POC Glucose AST ALT Triglycerides HDL Cholesterol 03/24/18 03/24/18 05:22 05:22 Hgb Hct Lymph % (Auto) 10.9 L [place] % (Auto) 10.3 H Lymph # 0.9 L Seg Neutrophils % 76.3 H PT INR APTT Sodium Chloride 97.3 L BUN 19 H Glucose 131 H POC Glucose AST ALT Triglycerides HDL Cholesterol
[2018-03-24] MEDS: COZAAR PO SCH (10:15)
[2018-03-24] MEDS: HCTZ PO SCH (10:16)
[2018-03-24] MEDS: TYLENOL PO PRN (10:17)
[2018-03-24] MEDS ORDERED: ROBINUL ONE (10:38)
[2018-03-24] MEDS ORDERED: XYLOCAINE MPF 2% ONE (10:38)
[2018-03-24] MEDS ORDERED: KETALAR ONE (10:38)
[2018-03-24] MEDS ORDERED: DIPRIVAN 10 MG/ML IV ONE ×2 (10:38)
[2018-03-24] MEDS ORDERED: HURRICAINE ONE 20% TOPICAL SPRAY MM NR (11:00)
[2018-03-24] MEDS ORDERED: NACL 0.9% 500 ML 500 ML IV SCH (11:00)
--- NOTE | 2018-03-24 11:42 | Anesthesia Day of Surgery ---
Anesthesia Day of Surgery - Day of Surgery Patient Examined: Yes Patient H&P Reviewed: Yes Patient is NPO: Yes Beta Blockers: Yes
--- NOTE | 2018-03-24 11:42 | Anesthesia Consultation ---
Anesthesia Consult and Med Hx Date of service: 03/24/18 - Airway Anesthetic Teeth Evaluation: Poor ROM Head & Neck: Adequate Mental/Hyoid Distance: Adequate Mallampati Class: Class III Intubation Access Assessment: Possibly Difficult - Pulmonary Exam CTA: Yes - Cardiac Exam Cardiac Exam: RRR - Pre-Operative Health Status ASA Pre-Surgery Classification: ASA3 Proposed Anesthetic Plan: MAC - Pre-Anesthesia Comment Pre-Anesthesia Comments: admission for weakness, difficulty speaking. subacute CVA. EF 60-65%. Scheduled for JULIO C - Cardiovascular System Hx Hypertension: Yes Hx Valvular Heart Disease: Yes (MVR ) - Central Nervous System CVA: Yes (right sided weakness ) - Hematic Hx Anemia: Yes
--- NOTE | 2018-03-24 11:54 | Progress Note ---
Assessment and Plan Assessment: Subacute ischemic CVA H/o rheumatic fever as a child, s/p mitral valve replacement with mechanical valve in 1998 in [place] Anticoagulated with coumadin - subtherapeutic INR on admission Accelerated HTN HLP NSVT Plan: S/p JULIO C this AM which showed grossly normal functioning mechanical MV, no evidence of thrombus or mass, negative bubble study. Increase lopressor to 25mg PO BID and obtain thyroid profile in setting of NSVT. Serum Mg 1.6 - will replete and repeat in AM. Initiate lipitor. Consider addition of ASA per neurology. Currently stable cardiac status. Can consider ischemic evaluation as OP. Nothing further to add from cardiac perspective at this time. Will sign off. Recommend pt follow up in our office with Dr. HUGH Aviles within 2 weeks of hospital discharge ([phone]). Assessment and plan reviewed with pt and pt's daughter at bedside. The patient has been seen in conjunction with Dr. Indu Aviles who agrees with the assessment and plan of care. Subjective Date of service: 03/24/18 Principal diagnosis: Embolic CVA. Interval history: pt for JULIO C this AM, no current cardiac complaints. daughter at bedside. Tele reviewed - pt was noted to have 4 beat run NSVT overnight. Objective Last Vital Signs Temp 97.8 F 03/24/18 11:00 Pulse 112 H 03/24/18 11:00 Resp 18 03/24/18 11:00 BP 138/77 03/24/18 11:00 Pulse Ox 99 03/24/18 11:00 - Physical Examination General: No Apparent Distress HEENT: Positive: PERRL, Normocephaly, Mucus Membranes Moist Neck: Positive: neck supple, trachea midline Cardiac: Positive: Reg Rate and Rhythm, S1/S2, Other (valve click) Lungs: Positive: clear to auscultation Neuro: Positive: Weakness (R>L) Abdomen: Positive: Soft. Negative: Tender Skin: Positive: Clear. Negative: Rash, Wound Musculoskeletal: No Fluid Collection, No Pain Extremities: Absent: edema - Labs and Meds Coagulation 03/24/18 Range/Units 05:22 PT 29.9 H (12.2-14.9) Sec. INR 2.63 H (0.87-1.13) CBC 03/24/18 Range/Units 05:22 WBC 7.8 (4.5-11.0) K/mm3 RBC 4.45 (3.65-5.03) M/mm3 Hgb 13.5 (10.1-14.3) gm/dl Hct 40.2 (30.3-42.9) % Plt Count 153 (140-440) K/mm3 Lymph # 0.9 L (1.2-5.4) K/mm3 [place] # 0.8 (0.0-0.8) K/mm3 Eos # 0.1 (0.0-0.4) K/mm3 Baso # 0.1 (0.0-0.1) K/mm3 Comprehensive Metabolic Panel 03/24/18 Range/Units 05:22 Sodium 138 (137-145) mmol/L Potassium 4.1 (3.6-5.0) mmol/L Chloride 97.3 L (98-107) mmol/L Carbon Dioxide 28 (22-30) mmol/L BUN 19 H (7-17) mg/dL Creatinine 0.8 (0.7-1.2) mg/dL Glucose 131 H (65-100) mg/dL Calcium 8.7 (8.4-10.2) mg/dL - Imaging and Cardiology EKG: report reviewed, image reviewed Echo: report reviewed (EF 60-65%, mechanical mitral valve prosthesis well seated with normal function, trace MR, RA mildly dilated, mild to mod TR, mod pulm HTN with RVSP 50mmHg) - Telemetry EKG Rhythm: Sinus Rhythm - EKG Sinus rhythms and dysrhythmias: sinus rhythm
[2018-03-24] MEDS ORDERED: MAGNESIUM SULFATE 2GM/50ML 2 GM/50 ML BAG IV ONE (16:00)
--- NOTE | 2018-03-24 17:50 | Progress Note ---
Assessment and Plan Assessment and plan: Ms. Lentz is a 77 yo Syriac speaking woman with a history of hypertension, dyslipidemia, rheumatic fever as a child w/ MVR on Coumadin who pw aphasia and weakness in the extremities. She was not a TPA candidate as she is on Coumadin. Her speech returned and she regained strength in her extermities. 03/22/18 MRI brain: IMPRESSION: 4 small foci of subacute ischemia are identified in the left MCA distribution as described. Multiple small chronic focal infarcts in the left occipital lobe and bilateral cerebellar hemispheres. Volume loss. Chronic white matter changes. Acute CVA. Cont Stroke protocol. Brain MRI without contrast, multiple embolic infarcts. Probably cardiogenic. TTE, EF 60-65%, no vegetation or thrombus reported. OT/PT, rehab and speech pathology. CTA head and neck, no big artery occlusion, no significant stenosis. Neurology following Bilateral extremity weakness. Neurology recommends cervical and lumbar MRI without contrast. Follow-up results. Hypertension. Cont antihypertensive meds Mitral valve replacement with subtherapeutic INR. Coumadin to maintain INR 2.5- 3.5 Hx NSTEMI with negative cath 2012 Hypomagnesemia: replaced NSVT: Cardiology is following 03/24/18 Per cardiology: Subacute ischemic CVA H/o rheumatic fever as a child, s/p mitral valve replacement with mechanical valve in 1998 in [place] Anticoagulated with coumadin - subtherapeutic INR on admission Accelerated HTN HLP NSVT Plan: S/p JULIO C this AM which showed grossly normal functioning mechanical MV, no evidence of thrombus or mass, negative bubble study. Increase lopressor to 25mg PO BID and obtain thyroid profile in setting of NSVT. Serum Mg 1.6 - will replete and repeat in AM. Initiate lipitor. Consider addition of ASA per neurology. Currently stable cardiac status. Can consider ischemic evaluation as OP. Nothing further to add from cardiac perspective at this time. Will sign off. Recommend pt follow up in our office with Dr. HUGH Aviles within 2 weeks of hospital discharge ([phone]). Assessment and plan reviewed with pt and pt's daughter at bedside. The patient has been seen in conjunction with Dr. Indu Aviles who agrees with the assessment and plan of care. disposition: d/c am if cleared by Cardiology and no more NSVT History Interval history: Daughter Feli was the lyric writer Patient was seen and examined. Follow-up on current diagnosis. Overnight uneventful. Patient denies any chest pain, shortness breath, nausea/vomiting or severe headaches. Imaging, nursing note, chart, labs and old chart reviewed. Discussed with patient. Hospitalist Physical - Physical exam Narrative exam: GEN: WDWN, NAD, Awake, Alert, Orientated HEENT: NCAT, EOMI, PERRL, OP Clear NECK: supple, no adenopathy, no thyromegaly, no JVD CVS/HEART: RRR, normal S1S2, pulses present bilaterally CHEST/LUNGS: CTA B, Symmetrical chest expansion, good air entry bilaterally GI/Abdomen: soft, NTND, good bowel sounds, no guarding or rebound /Bladder: no suprapubic tenderness, no CVA or paraspinal tenderness EXT/Skin: no c/c/e, no obvious rash MSK: FROM x 4 Neuro: CN 2-12 grossly intact, no new focal deficits Psych: calm - Constitutional Vitals: Temp Pulse Resp BP Pulse Ox 99.0 F 103 H 16 152/72 99 03/24/18 11:16 03/24/18 11:45 03/24/18 11:45 03/24/18 11:45 03/24/18 11:45 General appearance: Present: no acute distress Results - Labs CBC & Chem 7: 03/25/18 05:07 03/25/18 05:07 Labs: Laboratory Last Values WBC 7.8 K/mm3 (4.5-11.0) 03/24/18 05:22 RBC 4.45 M/mm3 (3.65-5.03) 03/24/18 05:22 Hgb 13.5 gm/dl (10.1-14.3) 03/24/18 05:22 Hct 40.2 % (30.3-42.9) 03/24/18 05:22 MCV 90 fl (79-97) 03/24/18 05:22 MCH 30 pg (28-32) 03/24/18 05:22 MCHC 34 % (30-34) 03/24/18 05:22 RDW 13.9 % (13.2-15.2) 03/24/18 05:22 Plt Count 153 K/mm3 (140-440) 03/24/18 05:22 Lymph % (Auto) 10.9 % (13.4-35.0) L 03/24/18 05:22 [place] % (Auto) 10.3 % (0.0-7.3) H 03/24/18 05:22 Eos % (Auto) 1.6 % (0.0-4.3) 03/24/18 05:22 Baso % (Auto) 0.9 % (0.0-1.8) 03/24/18 05:22 Lymph # 0.9 K/mm3 (1.2-5.4) L 03/24/18 05:22 [place] # 0.8 K/mm3 (0.0-0.8) 03/24/18 05:22 Eos # 0.1 K/mm3 (0.0-0.4) 03/24/18 05:22 Baso # 0.1 K/mm3 (0.0-0.1) 03/24/18 05:22 Seg Neutrophils % 76.3 % (40.0-70.0) H 03/24/18 05:22 Seg Neutrophils # 6.0 K/mm3 (1.8-7.7) 03/24/18 05:22 PT 29.9 Sec. (12.2-14.9) H 03/24/18 05:22 INR 2.63 (0.87-1.13) H 03/24/18 05:22 APTT 41.1 Sec. (24.2-36.6) H 03/22/18 05:06 Thrombin Time 16.6 Sec. (15.1-19.6) 03/21/18 18:20 Sodium 138 mmol/L (137-145) 03/24/18 05:22 Potassium 4.1 mmol/L (3.6-5.0) 03/24/18 05:22 Chloride 97.3 mmol/L (98-107) L 03/24/18 05:22 Carbon Dioxide 28 mmol/L (22-30) 03/24/18 05:22 Anion Gap 17 mmol/L 03/24/18 05:22 BUN 19 mg/dL (7-17) H 03/24/18 05:22 Creatinine 0.8 mg/dL (0.7-1.2) 03/24/18 05:22 Estimated GFR > 60 ml/min 03/24/18 05:22 BUN/Creatinine Ratio 24 % 03/24/18 05:22 Glucose 131 mg/dL (65-100) H 03/24/18 05:22 POC Glucose 116 (70-105) H 03/22/18 16:18 Calcium 8.7 mg/dL (8.4-10.2) 03/24/18 05:22 Magnesium 1.60 mg/dL (1.7-2.3) L 03/24/18 12:57 Total Bilirubin 0.30 mg/dL (0.1-1.2) 03/21/18 18:20 Direct Bilirubin < 0.2 mg/dL (0-0.2) 03/21/18 18:20 Indirect Bilirubin 0.1 mg/dL 03/21/18 18:20 AST < 5 units/L (5-40) L 03/21/18 18:20 ALT < 5 units/L (7-56) L 03/21/18 18:20 Alkaline Phosphatase 107 units/L (35-129) 03/21/18 18:20 Troponin T < 0.010 ng/mL (0.00-0.029) 03/21/18 18:20 Total Protein 7.9 g/dL (6.3-8.2) 03/21/18 18:20 Albumin 4.6 g/dL (3.9-5) 03/21/18 18:20 Albumin/Globulin Ratio 1.4 % 03/21/18 18:20 Triglycerides 258 mg/dL (2-149) H 03/22/18 05:06 Cholesterol 165 mg/dL (50-199) 03/22/18 05:06 LDL Cholesterol Direct 96 mg/dL (50-130) 03/22/18 05:06 HDL Cholesterol 33 mg/dL (40-59) L 03/22/18 05:06 Cholesterol/HDL Ratio 5.00 % 03/22/18 05:06 TSH 0.883 mlU/mL (0.270-4.200) 03/24/18 12:57 Free T4 1.19 ng/dL (0.76-1.46) 03/24/18 12:57
[2018-03-24] MEDS: COUMADIN PO SCH (18:22)
[2018-03-24] MEDS: LOPRESSOR PO SCH (21:47)
[2018-03-25 06:04] LABS: Basophils % (Auto) 0.5 % (0.0-1.8); Eosinophils # (Auto) 0.1 K/mm3 (0.0-0.4); Hematocrit 37.3 % (30.3-42.9); Hemoglobin 12.6 gm/dl (10.1-14.3); Lymphocytes # (Auto) 0.9 K/mm3 (1.2-5.4); Lymphocytes % (Auto) 10.8 % (13.4-35.0); Mean Corpuscular HGB Conc 34 % (30-34); Mean Corpuscular Hemoglobin 31 pg (28-32); Mean Corpuscular Volume 91 fl (79-97); Monocytes % (Auto) 12.2 % (0.0-7.3); Platelet Count 159 K/mm3 (140-440); Red Blood Count 4.12 M/mm3 (3.65-5.03); Red Cell Distribution Width 14.1 % (13.2-15.2)
[2018-03-25 06:09] LABS: INR 2.81 (0.87-1.13)
[2018-03-25 06:12] LABS: Calcium 8.6 mg/dL (8.4-10.2)
[2018-03-25] MEDS: TYLENOL PO PRN (09:35)
[2018-03-25] MEDS: HCTZ PO SCH (10:00)
[2018-03-25] MEDS: LOPRESSOR PO SCH ×2 (10:00→23:13)
[2018-03-25] MEDS: COZAAR PO SCH (10:00)
[2018-03-25] MEDS ORDERED: NACL 0.9% 1000 ML 1,000 ML IV SCH (11:00)
[2018-03-25] MEDS: NORCO 10/325 PO PRN ×2 (11:15→21:39)
--- NOTE | 2018-03-25 11:59 | Cat Scan Report ---
CT HEAD WITHOUT CONTRAST: HISTORY: CVA with worsening headache. TECHNIQUE: Sequential 2.5mm CT images. COMPARISON: MR brain dated 03/22/18. FINDINGS: The previous MRI was reviewed. There is a new area of diminished attenuation in the left posterior frontal lobe measuring 2.6 x 1.2 cm in axial plane on image 32. This has the appearance of a subacute ischemic infarct. This area was not involved on the MR brain performed 3 days ago and presumably represents a new area of ischemia since the previous MRI. The previously described 4 small areas of diffusion restriction on MRI are not clearly identified on CT. There is no evidence for hemorrhage, mass, mass effect or extra-axial fluid collection. Ventricular size is stable and within normal limits. Mild cortical atrophy and mild chronic white matter changes are stable. Chronic focal infarcts in the cerebellum and high in the left occipital lobe are also unchanged. IMPRESSION: A new area of subacute ischemia is suspected in the left posterior frontal lobe. See above. No evidence for hemorrhage or mass effect. These findings were discussed with Dr. Ruiz at 1147 hrs.
--- NOTE | 2018-03-25 15:42 | Progress Note ---
Assessment and Plan Assessment and plan: Ms. Lentz is a 77 yo Romansh speaking woman with a history of hypertension, dyslipidemia, rheumatic fever as a child w/ MVR on Coumadin who pw aphasia and weakness in the extremities. She was not a TPA candidate as she is on Coumadin. Her speech returned and she regained strength in her extermities. 03/22/18 MRI brain: IMPRESSION: 4 small foci of subacute ischemia are identified in the left MCA distribution as described. Multiple small chronic focal infarcts in the left occipital lobe and bilateral cerebellar hemispheres. Volume loss. Chronic white matter changes. Acute CVA. Cont Stroke protocol. Brain MRI without contrast, multiple embolic infarcts. Probably cardiogenic. TTE, EF 60-65%, no vegetation or thrombus reported. OT/PT, rehab and speech pathology. CTA head and neck, no big artery occlusion, no significant stenosis. Neurology following Bilateral extremity weakness. Neurology recommends cervical and lumbar MRI without contrast. Follow-up results. Hypertension. Cont antihypertensive meds Mitral valve replacement with subtherapeutic INR. Coumadin to maintain INR 2.5- 3.5 Hx NSTEMI with negative cath 2012 Hypomagnesemia: replaced NSVT: Cardiology is following Disposition: d/c am if cleared by Cardiology and no more NSVT 03/25/18: hold discharge, for new onset seizures, re-called Dr. Blair, Neurologist , [place]. no more NSVT since 03/23/18 @ 2335. Repeat CT showing new 2.5cm x 1.5 cm ischemic infarct left posterior frontal lobe. Ordered EEG. Also new ARF , ?dye related, will consult Nephrology. History Interval history: Daughter Feli was the roller setter Patient was seen and examined. Follow-up on current diagnosis. Overnight eventful with seizure like activity, no MD called. Patient denies any chest pain, shortness breath, nausea/vomiting or severe headaches. Imaging, nursing note, chart, labs and old chart reviewed. Discussed with patient. Hospitalist Physical - Physical exam Narrative exam: GEN: WDWN, NAD, Awake, Alert, Orientated HEENT: NCAT, EOMI, PERRL, OP Clear NECK: supple, no adenopathy, no thyromegaly, no JVD CVS/HEART: RRR, normal S1S2, pulses present bilaterally CHEST/LUNGS: CTA B, Symmetrical chest expansion, good air entry bilaterally GI/Abdomen: soft, NTND, good bowel sounds, no guarding or rebound /Bladder: no suprapubic tenderness, no CVA or paraspinal tenderness EXT/Skin: no c/c/e, no obvious rash MSK: FROM x 4 Neuro: CN 2-12 grossly intact, no new focal deficits Psych: calm - Constitutional Vitals: Temp Pulse Resp BP Pulse Ox 97.6 F 94 H 16 109/49 96 03/25/18 13:42 03/25/18 13:42 03/25/18 13:42 03/25/18 13:42 03/25/18 13:42 General appearance: Present: no acute distress Results - Labs CBC & Chem 7: 03/25/18 05:07 03/25/18 05:07 Labs: Laboratory Last Values WBC 8.2 K/mm3 (4.5-11.0) 03/25/18 05:07 RBC 4.12 M/mm3 (3.65-5.03) 03/25/18 05:07 Hgb 12.6 gm/dl (10.1-14.3) 03/25/18 05:07 Hct 37.3 % (30.3-42.9) 03/25/18 05:07 MCV 91 fl (79-97) 03/25/18 05:07 MCH 31 pg (28-32) 03/25/18 05:07 MCHC 34 % (30-34) 03/25/18 05:07 RDW 14.1 % (13.2-15.2) 03/25/18 05:07 Plt Count 159 K/mm3 (140-440) 03/25/18 05:07 Lymph % (Auto) 10.8 % (13.4-35.0) L 03/25/18 05:07 [place] % (Auto) 12.2 % (0.0-7.3) H 03/25/18 05:07 Eos % (Auto) 1.0 % (0.0-4.3) 03/25/18 05:07 Baso % (Auto) 0.5 % (0.0-1.8) 03/25/18 05:07 Lymph # 0.9 K/mm3 (1.2-5.4) L 03/25/18 05:07 [place] # 1.0 K/mm3 (0.0-0.8) H 03/25/18 05:07 Eos # 0.1 K/mm3 (0.0-0.4) 03/25/18 05:07 Baso # 0.0 K/mm3 (0.0-0.1) 03/25/18 05:07 Seg Neutrophils % 75.5 % (40.0-70.0) H 03/25/18 05:07 Seg Neutrophils # 6.2 K/mm3 (1.8-7.7) 03/25/18 05:07 PT 31.5 Sec. (12.2-14.9) H 03/25/18 05:07 INR 2.81 (0.87-1.13) H 03/25/18 05:07 APTT 41.1 Sec. (24.2-36.6) H 03/22/18 05:06 Thrombin Time 16.6 Sec. (15.1-19.6) 03/21/18 18:20 Sodium 137 mmol/L (137-145) 03/25/18 05:07 Potassium 3.8 mmol/L (3.6-5.0) 03/25/18 05:07 Chloride 100.8 mmol/L (98-107) 03/25/18 05:07 Carbon Dioxide 26 mmol/L (22-30) 03/25/18 05:07 Anion Gap 14 mmol/L 03/25/18 05:07 BUN 30 mg/dL (7-17) H 03/25/18 05:07 Creatinine 1.3 mg/dL (0.7-1.2) H D 03/25/18 05:07 Estimated GFR 40 ml/min 03/25/18 05:07 BUN/Creatinine Ratio 23 % 03/25/18 05:07 Glucose 118 mg/dL (65-100) H 03/25/18 05:07 POC Glucose 116 (70-105) H 03/22/18 16:18 Calcium 8.6 mg/dL (8.4-10.2) 03/25/18 05:07 Magnesium 2.20 mg/dL (1.7-2.3) 03/25/18 05:07 Total Bilirubin 0.30 mg/dL (0.1-1.2) 03/21/18 18:20 Direct Bilirubin < 0.2 mg/dL (0-0.2) 03/21/18 18:20 Indirect Bilirubin 0.1 mg/dL 03/21/18 18:20 AST < 5 units/L (5-40) L 03/21/18 18:20 ALT < 5 units/L (7-56) L 03/21/18 18:20 Alkaline Phosphatase 107 units/L (35-129) 03/21/18 18:20 Troponin T < 0.010 ng/mL (0.00-0.029) 03/21/18 18:20 Total Protein 7.9 g/dL (6.3-8.2) 03/21/18 18:20 Albumin 4.6 g/dL (3.9-5) 03/21/18 18:20 Albumin/Globulin Ratio 1.4 % 03/21/18 18:20 Triglycerides 258 mg/dL (2-149) H 03/22/18 05:06 Cholesterol 165 mg/dL (50-199) 03/22/18 05:06 LDL Cholesterol Direct 96 mg/dL (50-130) 03/22/18 05:06 HDL Cholesterol 33 mg/dL (40-59) L 03/22/18 05:06 Cholesterol/HDL Ratio 5.00 % 03/22/18 05:06 TSH 0.883 mlU/mL (0.270-4.200) 03/24/18 12:57 Free T4 1.19 ng/dL (0.76-1.46) 03/24/18 12:57
[2018-03-25] MEDS ORDERED: KEPPRA PO ONE ×2 (17:00→23:00)
--- NOTE | 2018-03-25 17:44 | Magnetic Resonance Report ---
FINAL REPORT EXAM: MR THORACIC SPINE WO CON HISTORY: Leg weakness, small T1-2 right neural foraminal cyst on recent cervical spine MRI. TECHNIQUE: MRI examination of the thoracic spine without IV contrast PRIORS: Cervical spine MRI 03/23/2018 FINDINGS: Again noted is a smoothly marginated benign-appearing simple cyst in the right T1-2 neural foramen measuring 4.2 x 5.9 mm. This is suggestive of a perineural cyst. Thoracic cord: Normal Vertebral compression fracture: None Spondylolisthesis: None Acute bone marrow edema: None Conus medullaris signal and position: Normal Disc narrowing: T4-5 slight, T5-6 slight, T9-10 slight, T10-11 slight Diffuse disc bulge: T10-11 slight Focal disc protrusion: None Central canal stenosis: T10-11 slight Neural foraminal stenosis: None Degenerative change: Multilevel at the vertebral endplates and facet joints Nonspecific density in the pulmonary posterior lower lobe bilaterally may be atelectasis. IMPRESSION: No evidence of acute thoracic spine pathology Stable simple appearing likely benign cyst in right T1-2 neural foramen suggestive of perineural cyst Multilevel degenerative change and disc narrowing T10-11 slight diffuse posterior disc bulge with slight central canal stenosis Bilateral posterior lung density may be atelectasis
[2018-03-25] MEDS: COUMADIN PO SCH (19:48)
[2018-03-25] MEDS: MILK OF MAGNESIA PO PRN (21:40)
[2018-03-26 05:56] LABS: INR 2.82 (0.87-1.13)
[2018-03-26] MEDS: KEPPRA PO SCH ×2 (07:33→18:01)
[2018-03-26] MEDS: MILK OF MAGNESIA PO PRN (08:47)
[2018-03-26] MEDS: COZAAR PO SCH (10:09)
[2018-03-26] MEDS: LOPRESSOR PO SCH ×2 (10:10→21:29)
[2018-03-26] MEDS: HCTZ PO SCH (10:10)
--- NOTE | 2018-03-26 11:07 | XRay Report ---
Abdomen 2 views: History: Abdominal pain. Findings: No free intraperitoneal air. Moderate amount of air in small bowel with minimal air in large bowel. No wall thickening. No radiopaque calculus or abnormal calcification. Impression: Nonspecific findings. No definite evidence of obstruction.
[2018-03-26 11:56] LABS: Hematocrit 40.9 % (30.3-42.9); Hemoglobin 13.5 gm/dl (10.1-14.3); Mean Corpuscular HGB Conc 33 % (30-34); Mean Corpuscular Hemoglobin 30 pg (28-32); Mean Corpuscular Volume 91 fl (79-97); Platelet Count 229 K/mm3 (140-440); Red Cell Distribution Width 14.1 % (13.2-15.2)
[2018-03-26 12:10] LABS: BUN/Creatinine Ratio 38; Blood Urea Nitrogen 34 mg/dL (7-17); Calcium 9.4 mg/dL (8.4-10.2); Hemolysis Index 14
--- NOTE | 2018-03-26 12:28 | Progress Note ---
Assessment and Plan 1. Acute onset, unable to speak, both leg weakness, now all extremities weakness. Speech back to normal. Brain MRI without contrast, multiple embolic infarcts, acute/subacute. Probably cardiogenic due to INR subclinical level. TTE , EF 60-65%, no vegetation or thrombus reported. OT/PT, rehab and speech pathology. Stat CTA head and neck, no big artery occlusion, no significant stenosis. 2. New onset seizure. Probably focal with conscious impairment and secondary general, probably from embolic infacrs. Agree to have Keppra and EEG. 3. All extremities weakness. Cervical and lumbar MRI without contrast, DDD, moderate spinal stenosis. Thoracic MRI without contrast, T1-t2 small cyst. Suggest neurosurgery or orthopaedic consult. 4. Mitrial valve replacement on Coumadin. Continue Coumadin and have INR in therapeutic range. Cardiology on board. 5. Right leg pains. Right leg DVT as differential. Pending ultrasound. 6. HTN. Controlled. Medicine. LDL 96. Pending A1c. internal medicine. 7. Plan discussed with her nurse and her hospitalist. 8. Will follow up with you PRN. Please call personal banker neurology if needed. 9. If D/C, F/U with neurology in 4-6 weeks. Subjective Date of service: 03/26/18 Principal diagnosis: Embolic CVA. Interval history: She has a seizure yesterday and her hospitalist initialed [place]. Objective - Vital Sign Vital Signs - 12hr 03/26/18 03/26/18 03/26/18 03:58 05:19 08:08 Temperature 98.9 F 98.3 F Pulse Rate 84 82 89 Respiratory 18 14 Rate Blood Pressure 109/47 139/63 Blood Pressure 109/47 [Left] O2 Sat by Pulse 94 93 99 Oximetry 03/26/18 09:49 Temperature Pulse Rate Respiratory Rate Blood Pressure Blood Pressure [Left] O2 Sat by Pulse 96 Oximetry - General Apperance Constitutional: comfortable - EENT EENT: PERRL, mucous membranes moist - Respiratory Respiratory: lungs clear, normal breath sounds - Cardiovascular Cardiovascular: regular rate, no murmurs - Gastrointestinal Gastrointestinal: soft, non-tender - Integumentary Integumentary: normal - Neurologic Cranial nerve examination: PERRL, EOMI, face symmetric, intact Speech examination: other (right side decreased.) Detailed motor examination: other (Right lower 3/5, rest 4/5.) Reflexes: 1+: ankle, bicep, knee, tricep - Laboratory Findings CBC and BMP: 03/26/18 11:13 03/26/18 11:13 Abnormal Lab Findings: Abnormal Labs 03/21/18 03/21/18 03/21/18 18:20 18:20 18:20 Hgb 14.4 H Hct 44.0 H Lymph % (Auto) [place] % (Auto) 9.4 H Lymph # [place] # Seg Neutrophils % PT 20.3 H INR 1.63 H APTT 43.9 H Sodium 136 L Chloride 96.2 L Carbon Dioxide BUN 22 H Creatinine Glucose 148 H POC Glucose Magnesium AST ALT Triglycerides HDL Cholesterol 03/21/18 03/22/18 03/22/18 18:20 01:36 05:06 Hgb Hct Lymph % (Auto) [place] % (Auto) Lymph # [place] # Seg Neutrophils % PT 21.0 H INR 1.70 H APTT 41.1 H Sodium Chloride Carbon Dioxide BUN Creatinine Glucose POC Glucose 191 H Magnesium AST < 5 L ALT < 5 L Triglycerides HDL Cholesterol 03/22/18 03/22/18 03/23/18 05:06 16:18 05:15 Hgb Hct Lymph % (Auto) [place] % (Auto) Lymph # [place] # Seg Neutrophils % PT 25.4 H INR 2.15 H APTT Sodium Chloride Carbon Dioxide BUN Creatinine Glucose POC Glucose 116 H Magnesium AST ALT Triglycerides 258 H HDL Cholesterol 33 L 03/23/18 03/23/18 03/24/18 05:15 05:15 05:22 Hgb Hct Lymph % (Auto) [place] % (Auto) 8.9 H Lymph # [place] # Seg Neutrophils % PT 29.9 H INR 2.63 H APTT Sodium Chloride Carbon Dioxide BUN 22 H Creatinine Glucose 117 H POC Glucose Magnesium AST ALT Triglycerides HDL Cholesterol 03/24/18 03/24/18 03/24/18 05:22 05:22 12:57 Hgb Hct Lymph % (Auto) 10.9 L [place] % (Auto) 10.3 H Lymph # 0.9 L [place] # Seg Neutrophils % 76.3 H PT INR APTT Sodium Chloride 97.3 L Carbon Dioxide BUN 19 H Creatinine Glucose 131 H POC Glucose Magnesium 1.60 L AST ALT Triglycerides HDL Cholesterol 03/25/18 03/25/18 03/25/18 05:07 05:07 05:07 Hgb Hct Lymph % (Auto) 10.8 L [place] % (Auto) 12.2 H Lymph # 0.9 L [place] # 1.0 H Seg Neutrophils % 75.5 H PT 31.5 H INR 2.81 H APTT Sodium Chloride Carbon Dioxide BUN 30 H Creatinine 1.3 H D Glucose 118 H POC Glucose Magnesium AST ALT Triglycerides HDL Cholesterol 03/26/18 03/26/18 05:27 11:13 Hgb Hct Lymph % (Auto) [place] % (Auto) Lymph # [place] # Seg Neutrophils % PT 31.6 H INR 2.82 H APTT Sodium Chloride 93.9 L Carbon Dioxide 31 H BUN 34 H Creatinine Glucose 119 H POC Glucose Magnesium AST ALT Triglycerides HDL Cholesterol
--- NOTE | 2018-03-26 14:42 | Progress Note ---
Assessment and Plan Assessment and plan: Ms. Lentz is a 77 yo Turkish speaking woman with a history of hypertension, dyslipidemia, rheumatic fever as a child w/ MVR on Coumadin who pw aphasia and weakness in the extremities. She was not a TPA candidate as she is on Coumadin. Her speech returned and she regained strength in her extermities. 03/22/18 MRI brain: IMPRESSION: 4 small foci of subacute ischemia are identified in the left MCA distribution as described. Multiple small chronic focal infarcts in the left occipital lobe and bilateral cerebellar hemispheres. Volume loss. Chronic white matter changes. Acute CVA, cerebral and cerebellar ischemic infarct moon. Cont Stroke protocol. Brain MRI without contrast, multiple embolic infarcts. Probably cardiogenic. TTE, EF 60-65%, no vegetation or thrombus reported. OT/PT, rehab and speech pathology. CTA head and neck, no big artery occlusion, no significant stenosis. Neurology following Bilateral extremity weakness. Neurology recommends cervical and lumbar MRI without contrast. Follow-up results. Hypertension. Cont antihypertensive meds Mitral valve replacement with subtherapeutic INR. Coumadin to maintain INR 2.5- 3.5 Hx NSTEMI with negative cath 2012 Hypomagnesemia: replaced NSVT: Cardiology is following ARF, vasomotor nephropathy resolved Disposition: d/c am if cleared by Cardiology and no more NSVT 03/25/18: hold discharge, for new onset seizures, re-called Dr. Blair, Neurologist , start [facility]. no more NSVT since 03/23/18 @ 2335. Repeat CT showing new 2.5cm x 1.5 cm ischemic infarct left posterior frontal lobe. Ordered EEG. Also new ARF , ?dye related, will consult Nephrology. 03/26/18: d/w neurologist, [facility] Blair, [facility] EEG pending. Added baby aspirin. Give enema for constipation. get abd xray. consulted GI due to abd pains History Interval history: Daughter Feli was the coal washer tender Patient was seen and examined. Follow-up on current diagnosis. Overnight eventful with seizure like activity, no MD called. Patient denies any chest pain, shortness breath, nausea/vomiting or severe headaches. Imaging, nursing note, chart, labs and old chart reviewed. Discussed with patient. Hospitalist Physical - Physical exam Narrative exam: GEN: WDWN, NAD, Awake, Alert, Orientated HEENT: NCAT, EOMI, PERRL, OP Clear NECK: supple, no adenopathy, no thyromegaly, no JVD CVS/HEART: RRR, normal S1S2, pulses present bilaterally CHEST/LUNGS: CTA B, Symmetrical chest expansion, good air entry bilaterally GI/Abdomen: soft, NTND, good bowel sounds, no guarding or rebound /Bladder: no suprapubic tenderness, no CVA or paraspinal tenderness EXT/Skin: no c/c/e, no obvious rash MSK: FROM x 4 Neuro: CN 2-12 grossly intact, no new focal deficits Psych: calm - Constitutional Vitals: Temp Pulse Resp BP Pulse Ox 97.9 F 88 18 139/63 91 03/26/18 12:37 03/26/18 12:37 03/26/18 12:37 03/26/18 12:37 03/26/18 12:37 General appearance: Present: no acute distress Results - Labs CBC & Chem 7: 03/26/18 11:13 03/26/18 11:13 Labs: Laboratory Last Values WBC 8.4 K/mm3 (4.5-11.0) 03/26/18 11:13 RBC 4.50 M/mm3 (3.65-5.03) 03/26/18 11:13 Hgb 13.5 gm/dl (10.1-14.3) 03/26/18 11:13 Hct 40.9 % (30.3-42.9) 03/26/18 11:13 MCV 91 fl (79-97) 03/26/18 11:13 MCH 30 pg (28-32) 03/26/18 11:13 MCHC 33 % (30-34) 03/26/18 11:13 RDW 14.1 % (13.2-15.2) 03/26/18 11:13 Plt Count 229 K/mm3 (140-440) 03/26/18 11:13 Lymph % (Auto) 10.8 % (13.4-35.0) L 03/25/18 05:07 [place] % (Auto) 12.2 % (0.0-7.3) H 03/25/18 05:07 Eos % (Auto) 1.0 % (0.0-4.3) 03/25/18 05:07 Baso % (Auto) 0.5 % (0.0-1.8) 03/25/18 05:07 Lymph # 0.9 K/mm3 (1.2-5.4) L 03/25/18 05:07 [place] # 1.0 K/mm3 (0.0-0.8) H 03/25/18 05:07 Eos # 0.1 K/mm3 (0.0-0.4) 03/25/18 05:07 Baso # 0.0 K/mm3 (0.0-0.1) 03/25/18 05:07 Seg Neutrophils % 75.5 % (40.0-70.0) H 03/25/18 05:07 Seg Neutrophils # 6.2 K/mm3 (1.8-7.7) 03/25/18 05:07 PT 31.6 Sec. (12.2-14.9) H 03/26/18 05:27 INR 2.82 (0.87-1.13) H 03/26/18 05:27 APTT 41.1 Sec. (24.2-36.6) H 03/22/18 05:06 Thrombin Time 16.6 Sec. (15.1-19.6) 03/21/18 18:20 Sodium 137 mmol/L (137-145) 03/26/18 11:13 Potassium 4.0 mmol/L (3.6-5.0) 03/26/18 11:13 Chloride 93.9 mmol/L (98-107) L 03/26/18 11:13 Carbon Dioxide 31 mmol/L (22-30) H 03/26/18 11:13 Anion Gap 16 mmol/L 03/26/18 11:13 BUN 34 mg/dL (7-17) H 03/26/18 11:13 Creatinine 0.9 mg/dL (0.7-1.2) 03/26/18 11:13 Estimated GFR > 60 ml/min 03/26/18 11:13 BUN/Creatinine Ratio 38 % 03/26/18 11:13 Glucose 119 mg/dL (65-100) H 03/26/18 11:13 POC Glucose 116 (70-105) H 03/22/18 16:18 Calcium 9.4 mg/dL (8.4-10.2) 03/26/18 11:13 Magnesium 2.20 mg/dL (1.7-2.3) 03/25/18 05:07 Total Bilirubin 0.30 mg/dL (0.1-1.2) 03/21/18 18:20 Direct Bilirubin < 0.2 mg/dL (0-0.2) 03/21/18 18:20 Indirect Bilirubin 0.1 mg/dL 03/21/18 18:20 AST < 5 units/L (5-40) L 03/21/18 18:20 ALT < 5 units/L (7-56) L 03/21/18 18:20 Alkaline Phosphatase 107 units/L (35-129) 03/21/18 18:20 Troponin T < 0.010 ng/mL (0.00-0.029) 03/21/18 18:20 Total Protein 7.9 g/dL (6.3-8.2) 03/21/18 18:20 Albumin 4.6 g/dL (3.9-5) 03/21/18 18:20 Albumin/Globulin Ratio 1.4 % 03/21/18 18:20 Triglycerides 258 mg/dL (2-149) H 03/22/18 05:06 Cholesterol 165 mg/dL (50-199) 03/22/18 05:06 LDL Cholesterol Direct 96 mg/dL (50-130) 03/22/18 05:06 HDL Cholesterol 33 mg/dL (40-59) L 03/22/18 05:06 Cholesterol/HDL Ratio 5.00 % 03/22/18 05:06 TSH 0.883 mlU/mL (0.270-4.200) 03/24/18 12:57 Free T4 1.19 ng/dL (0.76-1.46) 03/24/18 12:57
[2018-03-26] MEDS: COUMADIN PO SCH (18:00)
[2018-03-26] MEDS: BABY ASPIRIN PO SCH (18:01)
--- NOTE | 2018-03-26 19:26 | Consultation ---
History of Present Illness - Reason for Consult Consult date: 03/26/18 acute renal failure Requesting physician: FIONA ESPOSITO - History of Present Illness 77-year-old female with a history of hypertension more than 30 years and mitral valve replacement admitted following a fall at home. Patient was found face down on the floor. She was unable to speak. She had a facial droop. She says she was sitting down praying when she started feeling dizzy with room spinning around. She got up to go to the bed to lie down but fell on the way. She was kneeling with her face on the bed and thereafter fell on the floor. She felt her body stiffening. Family members found her lying face down on the floor and called EMS and she was brought to the hospital. She recalls them asking her questions on the ambulance and in the emergency room but she could not answer the questions. The words would not come out. She had what appears to be a seizure from her description. She still feels numbness and paresthesias on the right side and is weak in both legs and her right upper extremity. She admits to palpitations which were rapid and shortness of breath but no chest pain. No lower extremity swelling. BUN/creatinine were elevated at 30/1.3 mg per dl yesterday. Hospitalist is considering doing a CT scan of the abdomen and pelvis with contrast and hence I am consulted. Past History Past Medical History: hypertension, hyperlipidemia, other (Rheumatic fever as a child, s/p MVR) Past Surgical History: cholecystectomy, , Other (s/p mechanical MVR, right cataract extraction and intraocular lens implant) Social history: lives with family (please see typed order. She was a housewife) , other (remote smoker.). denies: smoking (quit smoking about 19 years ago), alcohol abuse, prescription drug abuse Family history: cancer (one sister of pancreatic cancer at 63 and brother of cancer age 65.), diabetes (father had diabetes mellitus), other (father of competitions of emphysema. Mother of complications of peptic ulcer disease at 63) Medications and Allergies Allergies Allergy/AdvReac Type Severity Reaction Status Date / Time No Known Allergies Allergy Unverified 08/26/13 09:19 Home Medications Medication Instructions Recorded Confirmed Last Taken Type Hydrochlorothiazide [HCTZ] 25 mg PO QDAY 10/01/13 03/23/1803/20/18 History Losartan [Cozaar] 100 mg PO DAILY 10/01/13 03/23/18 03/20/18 History Metoprolol [Lopressor] 25 mg PO DAILY 10/01/13 03/23/18 03/20/18 History Warfarin [Coumadin] 1.5 mg PO QPM 10/01/13 03/23/18 03/20/18 History Warfarin [Coumadin] 1 mg PO QPM 03/21/18 03/23/18 03/19/18 History Active Meds: Active Medications Acetaminophen (Tylenol) 650 mg PO Q4H PRN PRN Reason: Pain, Mild (1-3) Last Admin: 03/25/18 09:35 Dose: 650 mg Acetaminophen/Hydrocodone Bitart (Cory 10/325) 1 each PO Q4H PRN PRN Reason: Pain, Moderate (4-6) Last Admin: 03/25/18 21:39 Dose: 1 each Aspirin (Baby Aspirin) 81 mg PO QDAY [facility] Last Admin: 03/26/18 18:01 Dose: 81 mg Atorvastatin Calcium (Lipitor) 40 mg PO QHS [facility] Last Admin: 03/25/18 21:40 Dose: 40 mg Bisacodyl (Dulcolax) 10 mg KS QDAY PRN PRN Reason: Constipation Last Admin: 03/26/18 10:10 Dose: 10 mg Hydralazine HCl (Apresoline) 5 mg IV Q6H PRN PRN Reason: Keep SBP between 160-185 mm Hg Last Admin: 03/22/18 00:13 Dose: 5 mg Hydrochlorothiazide (Hctz) 25 mg PO QDAY [facility] Last Admin: 03/26/18 10:10 Dose: 25 mg Sodium Chloride (Nacl 0.9% 1000 Ml) 1,000 mls @ 100 mls/hr IV DIRECT [facility] Levetiracetam (Keppra) 500 mg PO BID@0600,1800 [facility] Last Admin: 03/26/18 18:01 Dose: 500 mg Losartan Potassium (Cozaar) 100 mg PO QDAY [facility] Last Admin: 03/26/18 10:09 Dose: 100 mg Magnesium Hydroxide (Milk Of Magnesia) 30 ml PO Q4H PRN PRN Reason: Constipation Last Admin: 03/26/18 08:47 Dose: 30 ml Metoprolol Tartrate (Lopressor) 25 mg PO BID [facility] Last Admin: 03/26/18 10:10 Dose: 25 mg Ondansetron HCl (Zofran) 4 mg IV Q8H PRN PRN Reason: N/V unrelieved by Reglan Sodium Chloride (Sodium Chloride Flush Syringe 10 Ml) 10 ml IV PRN PRN PRN Reason: LINE FLUSH Warfarin Sodium (Coumadin Pharmacy To Dose) 1 each PO PKCONSULT [facility] Warfarin Sodium (Coumadin) 1 mg PO WeThFr@1700 [facility] Last Admin: 03/26/18 18:00 Dose: 1 mg Warfarin Sodium (Coumadin) 1.5 mg PO MoTuSa@1700 [facility] Warfarin Sodium (Coumadin) 1.5 mg PO Gonzalez@1700 [facility] Review of Systems All systems: negative (Constitutional: no fever or chills. Appetite is poor. No weight loss. HEENT: No sore throat or sinus drainage no hearing right vision impairment and left eye blindness . Cardiovascular: See history of present illness Respiratory: She was treated for pneumonia about a month ago. Feels better now No cough, sputum, shortness of breath, hemoptysis or wheezing. Gastrointestinal: No nausea, vomiting, diarrhea, abdominal pain, hematemesis or melena. Genitourinary: No frequency urgency dysuria or hematuria. hematologic: No abnormal bleeding but admits to easy bruising. Integumentary: no pruritus or rash. Neurological: She has frequent headaches. See history of present illness. Musculoskeletal: Has joint pains on the right side. Psychiatry: Admits to anxiety but no depression) Exam - Vital Signs Vital signs: Vital Signs Temp Pulse Resp BP Pulse Ox 98.4 F 92 H 18 175/83 94 03/21/18 18:27 03/21/18 18:27 03/21/18 18:27 03/21/18 18:27 03/21/18 18:27 - Physical Exam Narrative exam: Elderly female lying in bed in no acute distress HEENT: NCAT, pink oral mucous membrane Neck: Supple, no venous distention CVS: S1S2 RRR with systolic click, no murmur, rub or gallop Chest: Clear to auscultation Abdomen: Protuberant, soft, nontender, no organomegaly, bowel sounds are present Extremities: No edema, no clubbing Skin warm and dry, bruises noted Neuro: Awake, alert mild facial droop, right upper extremity weakness but also weakness of both legs, diminished/abnormal sensations on the right side Results - Lab Results 03/26/18 11:13 03/26/18 11:13 Most recent lab results Calcium 9.4 mg/dL (8.4-10.2) 03/26/18 11:13 Magnesium 2.20 mg/dL (1.7-2.3) 03/25/18 05:07 Assessment and Plan - Patient Problems (1) Vasomotor nephropathy Current Visit: Yes Status: Acute Plan to address problem: Acute kidney injury Pre-renal azotemia which is resolving. Concerned about contrast exposure in the setting. Patient's abdominal exam is benign and white blood cell count is normal. She has tenderness in the left chest wall probably from the fall. Blood pressure is also stable. We'll discuss with primary attending about holding off on getting CT scan of the abdomen and pelvis with contrast for now. Follow-up lactic acid in morning and reexamine the patient. If absolutely indicated, we'll have to proceed understanding the risk. I discussed this at length with patient's and granddaughter at the bedside (2) Acute cerebral infarction Current Visit: Yes Status: Acute Plan to address problem: Continue management by neurologist. Patient is on aspirin and is on Coumadin (3) Essential (primary) hypertension Current Visit: Yes Status: Acute Plan to address problem: Blood pressure is controlled. Follow-up blood pressure on current medications (4) Bilateral leg weakness Current Visit: Yes Status: Acute Plan to address problem: This may be related to upper thoracic lesion. Management by neurologist (5) H/O mitral valve replacement with mechanical valve Current Visit: No Status: Chronic Plan to address problem: Continue Coumadin/management by Quality Assistant
[2018-03-26] MEDS: NORCO 10/325 PO PRN (21:30)
[2018-03-27 05:52] LABS: INR 2.16 (0.87-1.13)
[2018-03-27] MEDS: KEPPRA PO SCH ×2 (06:45→17:10)
[2018-03-27] MEDS: NORCO 10/325 PO PRN ×2 (06:48→22:52)
[2018-03-27] MEDS: COZAAR PO SCH (10:00)
[2018-03-27] MEDS: LOPRESSOR PO SCH ×2 (10:00→22:52)
[2018-03-27 10:54] LABS: Hematocrit 39.1 % (30.3-42.9); Mean Corpuscular HGB Conc 33 % (30-34); Mean Corpuscular Hemoglobin 30 pg (28-32); Mean Corpuscular Volume 91 fl (79-97); Platelet Count 221 K/mm3 (140-440); Red Blood Count 4.31 M/mm3 (3.65-5.03); Red Cell Distribution Width 13.8 % (13.2-15.2)
[2018-03-27 11:13] LABS: Albumin 3.2 g/dL (3.9-5)
--- NOTE | 2018-03-27 11:59 | Progress Note ---
Assessment and Plan - Patient Problems (1) Vasomotor nephropathy Current Visit: Yes Status: Acute Plan to address problem: Acute kidney injury Pre-renal azotemia which is resolving. Concerned about contrast exposure in the setting. Patient's abdominal exam is benign and white blood cell count is normal. She has tenderness in the lower chest wall probably from the fall. Blood pressure is also stable. I discussed with primary attending Dr Ruiz about holding off on getting CT scan of the abdomen and pelvis with contrast for now in my opinion. If however it is deemed absolutely necessary, will need to give intravenous fluids and understand patient is at risk of contrast-induced nephropathy. Hold diuretics also in this setting. I discussed this at length with patient and her family at the bedside. We'll sign off. (2) Acute cerebral infarction Current Visit: Yes Status: Acute Plan to address problem: Continue management by neurologist. Consider gabapentin or Lyrica for neuropathic pain. Patient is on aspirin and is on Coumadin (3) Essential (primary) hypertension Current Visit: Yes Status: Acute Plan to address problem: Blood pressure is controlled. Follow-up blood pressure on current medications (4) Bilateral leg weakness Current Visit: Yes Status: Acute Plan to address problem: This may be related to upper thoracic lesion. Management by neurologist (5) H/O mitral valve replacement with mechanical valve Current Visit: No Status: Chronic Plan to address problem: Continue Coumadin/management by Sonography Technologist Subjective Date of service: 03/27/18 Principal diagnosis: Embolic CVA. Interval history: Patient seen sitting on the bed. She is working with a question of therapy. Daughter Grandaughter and grandson at bedside. She denies abdominal pain. She had nausea and vomiting this morning. She complains of pain in her right leg. Objective - Exam Narrative Exam: Elderly female lying in bed in no acute distress HEENT: NCAT, pink oral mucous membrane Neck: Supple, no venous distention CVS: S1S2 RRR with systolic click, no murmur, rub or gallop Chest: Clear to auscultation Abdomen: Protuberant, soft, nontender, no organomegaly, bowel sounds are present Extremities: No edema, no clubbing Skin warm and dry, bruises noted Neuro: Awake, alert - Vital Signs Vital signs: Vital Signs - 12hr 03/27/18 03/27/18 03/27/18 03:22 03:23 04:01 Temperature 98.4 F Pulse Rate 66 71 Respiratory 18 Rate Respiratory 20 Rate [Right Leg ] Blood Pressure 87/41 Blood Pressure [Left] O2 Sat by Pulse 92 Oximetry 03/27/18 03/27/18 03/27/18 06:48 08:24 09:20 Temperature 98.2 F Pulse Rate 67 Respiratory 20 18 Rate Respiratory Rate [Right Leg ] Blood Pressure Blood Pressure 108/55 [Left] O2 Sat by Pulse 94 94 Oximetry - Lab 03/27/18 10:32 03/27/18 10:32 Most recent lab results Calcium 9.0 mg/dL (8.4-10.2) 03/27/18 10:32 Magnesium 2.20 mg/dL (1.7-2.3) 03/25/18 05:07
--- NOTE | 2018-03-27 13:39 | Progress Note ---
Assessment and Plan Assessment and plan: Ms. Lentz is a 77 yo Belarusian speaking woman with a history of hypertension, dyslipidemia, rheumatic fever as a child w/ MVR on Coumadin who pw aphasia and weakness in the extremities. She was not a TPA candidate as she is on Coumadin. Her speech returned and she regained strength in her extermities. 03/22/18 MRI brain: IMPRESSION: 4 small foci of subacute ischemia are identified in the left MCA distribution as described. Multiple small chronic focal infarcts in the left occipital lobe and bilateral cerebellar hemispheres. Volume loss. Chronic white matter changes. Acute CVA, cerebral and cerebellar ischemic infarct moon. Cont Stroke protocol. Brain MRI without contrast, multiple embolic infarcts. Probably cardiogenic. TTE, EF 60-65%, no vegetation or thrombus reported. OT/PT, rehab and speech pathology. CTA head and neck, no big artery occlusion, no significant stenosis. Neurology following Bilateral extremity weakness. Neurology recommends cervical and lumbar MRI without contrast. Follow-up results. Hypertension. Cont antihypertensive meds Mitral valve replacement with subtherapeutic INR. Coumadin to maintain INR 2.5- 3.5 Hx NSTEMI with negative cath 2012 Hypomagnesemia: replaced NSVT: Cardiology is following ARF, vasomotor nephropathy resolved Disposition: continue inpatient care. 03/25/18: hold discharge, for new onset seizures, re-called Dr. Blair, Neurologist , start [facility]. no more NSVT since 03/23/18 @ 2906. Repeat CT showing new 2.5cm x 1.5 cm ischemic infarct left posterior frontal lobe. Ordered EEG. Also new ARF , ?dye related, will consult Nephrology. 03/26/18: d/w neurologist, Dr. Blair, agrees with [facility]. EEG pending. Added baby aspirin. Give enema for constipation. get abd xray. consulted GI due to abd pains, d.w Dr. Sterling who recommended ct abd/pelvis w/ and w/o contrast, Cr. 0.9 03/27/18: Her main compliant is abd pains and right arm pains. She had an episode of nausea and vomiting today, after eating eggs this morning, CT abd/ pelvis with and wo contrast cancelled by Dr. Ferrera yesterday, he called me today. He is concerned about dye nephropathy. Patient's abd exam in not benign today, as she is quite tender on my exam. I d/w GI again today, Dr. Albin Lewis , who recommends re-ordering CT abd/pelvis with contrast. Which i did; however, the family will not sign off for the CT abd/pelvis now after speaking with Dr. Ferrera. Hopefully, GI will clarify this and give recommendations after they evaluate patient today. Constipation has resolved. I do not know why patient is vomiting. I am concerned that she embolized to abd. vascular. I do agree that gabapentin/lyrica for neuropathy right arm pains. History Interval history: Daughter Feli was the conference interpreter Patient was seen and examined. Follow-up on current diagnosis. Overnight uneventful, no seizure like activity, no MD called. Patient denies any chest pain, shortness breath, or severe headaches. Imaging, nursing note, chart, labs and old chart reviewed. Discussed with patient. Her main compliant is abd pains and right arm pains. She had an episode of nausea and vomiting today. Hospitalist Physical - Physical exam Narrative exam: GEN: WDWN, ill appearingNAD, Awake, Alert, Orientated HEENT: NCAT, EOMI, PERRL, OP Clear NECK: supple, no adenopathy, no thyromegaly, no JVD CVS/HEART: RRR, normal S1S2, pulses present bilaterally CHEST/LUNGS: CTA B, Symmetrical chest expansion, good air entry bilaterally GI/Abdomen: soft, very tenderness diffusely with guarding, good bowel sounds, no rebound /Bladder: no suprapubic tenderness, no CVA or paraspinal tenderness EXT/Skin: no c/c/e, no obvious rash MSK: LROM of right side, hands are becoming contracted Neuro: CN 2-12 grossly intact, no new focal deficits Psych: calm - Constitutional Vitals: Temp Pulse Resp BP Pulse Ox 98.2 F 67 18 108/55 94 03/27/18 08:24 03/27/18 08:24 03/27/18 08:24 03/27/18 08:24 03/27/18 09:20 General appearance: Present: no acute distress Results - Labs CBC & Chem 7: 03/27/18 10:32 03/27/18 10:32 Labs: Laboratory Last Values WBC 6.8 K/mm3 (4.5-11.0) 03/27/18 10:32 RBC 4.31 M/mm3 (3.65-5.03) 03/27/18 10:32 Hgb 13.0 gm/dl (10.1-14.3) 03/27/18 10:32 Hct 39.1 % (30.3-42.9) 03/27/18 10:32 MCV 91 fl (79-97) 03/27/18 10:32 MCH 30 pg (28-32) 03/27/18 10:32 MCHC 33 % (30-34) 03/27/18 10:32 RDW 13.8 % (13.2-15.2) 03/27/18 10:32 Plt Count 221 K/mm3 (140-440) 03/27/18 10:32 Lymph % (Auto) 10.8 % (13.4-35.0) L 03/25/18 05:07 [place] % (Auto) 12.2 % (0.0-7.3) H 03/25/18 05:07 Eos % (Auto) 1.0 % (0.0-4.3) 03/25/18 05:07 Baso % (Auto) 0.5 % (0.0-1.8) 03/25/18 05:07 Lymph # 0.9 K/mm3 (1.2-5.4) L 03/25/18 05:07 [place] # 1.0 K/mm3 (0.0-0.8) H 03/25/18 05:07 Eos # 0.1 K/mm3 (0.0-0.4) 03/25/18 05:07 Baso # 0.0 K/mm3 (0.0-0.1) 03/25/18 05:07 Seg Neutrophils % 75.5 % (40.0-70.0) H 03/25/18 05:07 Seg Neutrophils # 6.2 K/mm3 (1.8-7.7) 03/25/18 05:07 PT 25.5 Sec. (12.2-14.9) H 03/27/18 04:57 INR 2.16 (0.87-1.13) H 03/27/18 04:57 APTT 41.1 Sec. (24.2-36.6) H 03/22/18 05:06 Thrombin Time 16.6 Sec. (15.1-19.6) 03/21/18 18:20 Sodium 135 mmol/L (137-145) L 03/27/18 10:32 Potassium 4.3 mmol/L (3.6-5.0) 03/27/18 10:32 Chloride 94.5 mmol/L (98-107) L 03/27/18 10:32 Carbon Dioxide 26 mmol/L (22-30) 03/27/18 10:32 Anion Gap 19 mmol/L 03/27/18 10:32 BUN 45 mg/dL (7-17) H 03/27/18 10:32 Creatinine 1.2 mg/dL (0.7-1.2) 03/27/18 10:32 Estimated GFR 43 ml/min 03/27/18 10:32 BUN/Creatinine Ratio 38 % 03/27/18 10:32 Glucose 145 mg/dL (65-100) H 03/27/18 10:32 POC Glucose 136 (70-105) H 03/27/18 10:30 Lactic Acid 1.00 mmol/L (0.7-2.0) 03/27/18 10:32 Calcium 9.0 mg/dL (8.4-10.2) 03/27/18 10:32 Magnesium 2.20 mg/dL (1.7-2.3) 03/25/18 05:07 Total Bilirubin 0.50 mg/dL (0.1-1.2) 03/27/18 10:32 Direct Bilirubin < 0.2 mg/dL (0-0.2) 03/21/18 18:20 Indirect Bilirubin 0.1 mg/dL 03/21/18 18:20 AST 22 units/L (5-40) 03/27/18 10:32 ALT 20 units/L (7-56) 03/27/18 10:32 Alkaline Phosphatase 103 units/L (35-129) 03/27/18 10:32 Troponin T < 0.010 ng/mL (0.00-0.029) 03/21/18 18:20 Total Protein 7.5 g/dL (6.3-8.2) 03/27/18 10:32 Albumin 3.2 g/dL (3.9-5) L 03/27/18 10:32 Albumin/Globulin Ratio 0.7 % 03/27/18 10:32 Triglycerides 258 mg/dL (2-149) H 03/22/18 05:06 Cholesterol 165 mg/dL (50-199) 03/22/18 05:06 LDL Cholesterol Direct 96 mg/dL (50-130) 03/22/18 05:06 HDL Cholesterol 33 mg/dL (40-59) L 03/22/18 05:06 Cholesterol/HDL Ratio 5.00 % 03/22/18 05:06 TSH 0.883 mlU/mL (0.270-4.200) 03/24/18 12:57 Free T4 1.19 ng/dL (0.76-1.46) 03/24/18 12:57
[2018-03-27] MEDS: BABY ASPIRIN PO SCH (14:46)
[2018-03-27] MEDS: HCTZ PO SCH (14:48)
[2018-03-27] MEDS ORDERED: NACL ONE (15:09)
--- NOTE | 2018-03-27 16:17 | Cat Scan Report ---
FINAL REPORT EXAM: CT ABDOMEN PELVIS WO/W CON HISTORY: n/v, severe abd pains TECHNIQUE: Spiral CT scanning of the abdomen and pelvis before and after the uneventful administration of IV contrast. Multiplanar reformations. 100 mL Omnipaque IV. PRIORS: None. FINDINGS: Abdomen: Visualized lung bases show patchy and partially confluent opacities bilaterally. Mild cardiomegaly and prosthetic mitral valve noted. Very small hiatal hernia. No radiopaque gallstones. Liver without significant abnormality. Spleen without significant abnormality. Pancreas without significant abnormality. Kidneys without significant abnormality. Adrenal glands without significant abnormality. Pelvis: Bowel grossly unremarkable. Appendix is not confidently identified. No significant free peritoneal fluid, discrete abscess or apparent adenopathy. Aortoiliac calcification without aneurysmal dilatation. Mild degenerative changes in thoracolumbar spine. Small, fat-containing, bilateral inguinal hernias, left greater than right. IMPRESSION: 1. Findings which may represent bibasilar atelectasis, mild infiltrates or postinflammatory change and scarring of uncertain etiology or chronicity. Correlate clinically. 2. No other acute findings.
[2018-03-27] MEDS ORDERED: NACL 0.9% 500 ML 500 ML IV ONE (16:30)
[2018-03-27] MEDS ORDERED: COUMADIN PO SCH (17:00)
[2018-03-28] MEDS: KEPPRA PO SCH ×2 (06:49→18:06)
[2018-03-28] MEDS ORDERED: NACL 0.9% 1000 ML 1,000 ML IV SCH (08:00)
[2018-03-28 08:36] LABS: INR 2.19 (0.87-1.13)
[2018-03-28] MEDS: LOPRESSOR PO SCH ×2 (09:00→21:33)
[2018-03-28] MEDS: BABY ASPIRIN PO SCH (09:47)
--- NOTE | 2018-03-28 10:09 | Consultation ---
REFERRING PHYSICIAN: Thierry Ruiz MD INDICATION: Abdominal pain. HISTORY OF PRESENT ILLNESS: The patient is a 77-year-old female with history of hypertension, mitral valve replacement, on Coumadin, now being seen by GI for abdominal pain. The patient presented and was admitted on 03/21/2018 for signs and symptoms consistent with a CVA. The patient now reports 2 days of mid abdominal pain. The patient is Kittitian speaking. History obtained through family. Reports pain worse occasionally with eating. The patient reports mild nausea without vomiting. She reports no fevers or chills. She denies any lower GI symptoms including diarrhea, constipation, or rectal bleeding. GI is consulted to aid in management. PAST MEDICAL HISTORY: 1. Hypertension. 2. Mitral valve replacement. PAST SURGICAL HISTORY: 1. Status post appendectomy. 2. Status post MVR. MEDICATIONS: See chart. ALLERGIES: No known drug allergies. SOCIAL HISTORY: Denies alcohol, tobacco, or drug abuse. FAMILY HISTORY: Negative for colon cancer, IBD, or liver disease. REVIEW OF SYSTEMS: GENERAL: Reports mild weakness. HEENT: No visual complaints or tinnitus. PULMONARY: Denies shortness of breath. CARDIOVASCULAR: No chest pain. GASTROINTESTINAL: Reports abdominal pain. All points of 13-point review of review of system otherwise negative. PHYSICAL EXAMINATION: VITAL SIGNS: Temperature of 98.2, pulse 67, respirations 18, blood pressure 108/55. GENERAL: Fairly nourished female in no acute distress. HEENT: Pupils equal, round, and reactive. PULMONARY: Rhonchi. CARDIOVASCULAR: Regular rhythm. ABDOMEN: Positive bowel sounds. Soft. Mile mid upper abdominal discomfort. No guarding. No rebound. SKIN: No obvious rashes. LABORATORY DATA: Pertinent for white count of 8, hemoglobin and hematocrit of 13 and 39.1, platelet count 221. Chem-7 within normal limits. LFTs within normal limits. CT scan of abdomen and pelvis with contrast pending. ASSESSMENT AND PLAN: A 77-year-old female who presents with signs and symptoms of cerebrovascular accident, now with 2 days of abdominal pain, unclear etiology. PLAN: 1. CT scan of abdomen and pelvis with contrast. 2. Antiemetics and pain medications p.r.n. 3. Avoid NSAIDs and aspirin as possible. 4. Further recommendation based on CT scan and patient progress. JOB# [id number] OZIEL/EMILY VILLASEÑOR
--- NOTE | 2018-03-28 11:28 | Progress Note ---
Assessment and Plan Assessment and plan: Ms. Lentz is a 77 yo Kiswahili speaking woman with a history of hypertension, dyslipidemia, rheumatic fever as a child w/ MVR on Coumadin who pw aphasia and weakness in the extremities. She was not a TPA candidate as she is on Coumadin. Her speech returned and she regained strength in her extermities. 03/22/18 MRI brain: IMPRESSION: 4 small foci of subacute ischemia are identified in the left MCA distribution as described. Multiple small chronic focal infarcts in the left occipital lobe and bilateral cerebellar hemispheres. Volume loss. Chronic white matter changes. Acute CVA, cerebral and cerebellar ischemic infarct moon. Cont Stroke protocol. Brain MRI without contrast, multiple embolic infarcts. Probably cardiogenic. TTE, EF 60-65%, no vegetation or thrombus reported. OT/PT, rehab and speech pathology. CTA head and neck, no big artery occlusion, no significant stenosis. Neurology following Bilateral extremity weakness. Neurology recommends cervical and lumbar MRI without contrast. Follow-up results. Hypertension. Cont antihypertensive meds Mitral valve replacement with subtherapeutic INR. Coumadin to maintain INR 2.5- 3.5 Hx NSTEMI with negative cath 2012 Hypomagnesemia: replaced NSVT: Cardiology is following ARF, vasomotor nephropathy resolved Disposition: continue inpatient care. 03/25/18: hold discharge, for new onset seizures, re-called Dr. Blair, Neurologist , start [place]. no more NSVT since 03/23/18 @ 5724. Repeat CT showing new 2.5cm x 1.5 cm ischemic infarct left posterior frontal lobe. Ordered EEG. Also new ARF , ?dye related, will consult Nephrology. 03/26/18: d/w neurologist, Dr. Blair, agrees with [facility]. EEG pending. Added baby aspirin. Give enema for constipation. get abd xray. consulted GI due to abd pains, d.w Dr. Sterling who recommended ct abd/pelvis w/ and w/o contrast, Cr. 0.9 03/27/18: Her main compliant is abd pains and right arm pains. She had an episode of nausea and vomiting today, after eating eggs this morning, CT abd/ pelvis with and wo contrast cancelled by Dr. Ferrera yesterday, he called me today. He is concerned about dye nephropathy. Patient's abd exam in not benign today, as she is quite tender on my exam. I d/w GI again today, Dr. Albin Lewis , who recommends re-ordering CT abd/pelvis with contrast. Which i did; however, the family will not sign off for the CT abd/pelvis now after speaking with Dr. Ferrera. Hopefully, GI will clarify this and give recommendations after they evaluate patient today. Constipation has resolved. I do not know why patient is vomiting. I am concerned that she embolized to abd. vascular. I do agree that gabapentin/lyrica for neuropathy right arm pains. 03/28/18: CT abd/pelvis w/ and w/ contrast reported as no acute findings in the abd/pelvis but Aortoiliac calification and bilateral patchy infiltrates bilateral lung bases. Clinically this is the best she has looked. So, this maybe atelectasis. Everyday, her daughter, Quentin has provided web press operator apprentice services and she agrees. The abd pains are improved with bowel movement and n/v has resolved. patient wants to go home, but home services hasn' t been arranged, she would benefit from SNF but she has no insurance and she doesn't want placement, she wants to go home, will try to get inhome physical therapy for [facility]. Repeat bmp in am, and it renal function is stable then d/c with home health care ([facility] services) History Interval history: Daughter Feli was the web press operator apprentice Patient was seen and examined. Follow-up on current diagnosis. Overnight uneventful, no seizure like activity, no MD called. Patient denies any chest pain, shortness breath, or severe headaches. Imaging, nursing note, chart, labs and old chart reviewed. Discussed with patient. Her main compliant is abd pains and right arm pains. She had an episode of nausea and vomiting today. Hospitalist Physical - Physical exam Narrative exam: GEN: WDWN, ill appearingNAD, Awake, Alert, Orientated HEENT: NCAT, EOMI, PERRL, OP Clear NECK: supple, no adenopathy, no thyromegaly, no JVD CVS/HEART: RRR, normal S1S2, pulses present bilaterally CHEST/LUNGS: CTA B, Symmetrical chest expansion, good air entry bilaterally GI/Abdomen: soft, very tenderness diffusely with guarding, good bowel sounds, no rebound /Bladder: no suprapubic tenderness, no CVA or paraspinal tenderness EXT/Skin: no c/c/e, no obvious rash MSK: LROM of right side, hands are becoming contracted Neuro: CN 2-12 grossly intact, no new focal deficits Psych: calm - Constitutional Vitals: Temp Pulse Resp BP Pulse Ox 97.9 F 73 16 116/51 96 03/28/18 08:12 03/28/18 08:12 03/28/18 08:12 03/28/18 08:12 03/28/18 08:12 General appearance: Present: no acute distress Results - Labs CBC & Chem 7: 03/27/18 10:32 03/27/18 10:32 Labs: Laboratory Last Values WBC 6.8 K/mm3 (4.5-11.0) 03/27/18 10:32 RBC 4.31 M/mm3 (3.65-5.03) 03/27/18 10:32 Hgb 13.0 gm/dl (10.1-14.3) 03/27/18 10:32 Hct 39.1 % (30.3-42.9) 03/27/18 10:32 MCV 91 fl (79-97) 03/27/18 10:32 MCH 30 pg (28-32) 03/27/18 10:32 MCHC 33 % (30-34) 03/27/18 10:32 RDW 13.8 % (13.2-15.2) 03/27/18 10:32 Plt Count 221 K/mm3 (140-440) 03/27/18 10:32 Lymph % (Auto) 10.8 % (13.4-35.0) L 03/25/18 05:07 [place] % (Auto) 12.2 % (0.0-7.3) H 03/25/18 05:07 Eos % (Auto) 1.0 % (0.0-4.3) 03/25/18 05:07 Baso % (Auto) 0.5 % (0.0-1.8) 03/25/18 05:07 Lymph # 0.9 K/mm3 (1.2-5.4) L 03/25/18 05:07 [place] # 1.0 K/mm3 (0.0-0.8) H 03/25/18 05:07 Eos # 0.1 K/mm3 (0.0-0.4) 03/25/18 05:07 Baso # 0.0 K/mm3 (0.0-0.1) 03/25/18 05:07 Seg Neutrophils % 75.5 % (40.0-70.0) H 03/25/18 05:07 Seg Neutrophils # 6.2 K/mm3 (1.8-7.7) 03/25/18 05:07 PT 25.8 Sec. (12.2-14.9) H 03/28/18 07:21 INR 2.19 (0.87-1.13) H 03/28/18 07:21 APTT 41.1 Sec. (24.2-36.6) H 03/22/18 05:06 Thrombin Time 16.6 Sec. (15.1-19.6) 03/21/18 18:20 Sodium 135 mmol/L (137-145) L 03/27/18 10:32 Potassium 4.3 mmol/L (3.6-5.0) 03/27/18 10:32 Chloride 94.5 mmol/L (98-107) L 03/27/18 10:32 Carbon Dioxide 26 mmol/L (22-30) 03/27/18 10:32 Anion Gap 19 mmol/L 03/27/18 10:32 BUN 45 mg/dL (7-17) H 03/27/18 10:32 Creatinine 1.2 mg/dL (0.7-1.2) 03/27/18 10:32 Estimated GFR 43 ml/min 03/27/18 10:32 BUN/Creatinine Ratio 38 % 03/27/18 10:32 Glucose 145 mg/dL (65-100) H 03/27/18 10:32 POC Glucose 136 (70-105) H 03/27/18 10:30 Lactic Acid 1.00 mmol/L (0.7-2.0) 03/27/18 10:32 Calcium 9.0 mg/dL (8.4-10.2) 03/27/18 10:32 Magnesium 2.20 mg/dL (1.7-2.3) 03/25/18 05:07 Total Bilirubin 0.50 mg/dL (0.1-1.2) 03/27/18 10:32 Direct Bilirubin < 0.2 mg/dL (0-0.2) 03/21/18 18:20 Indirect Bilirubin 0.1 mg/dL 03/21/18 18:20 AST 22 units/L (5-40) 03/27/18 10:32 ALT 20 units/L (7-56) 03/27/18 10:32 Alkaline Phosphatase 103 units/L (35-129) 03/27/18 10:32 Troponin T < 0.010 ng/mL (0.00-0.029) 03/21/18 18:20 Total Protein 7.5 g/dL (6.3-8.2) 03/27/18 10:32 Albumin 3.2 g/dL (3.9-5) L 03/27/18 10:32 Albumin/Globulin Ratio 0.7 % 03/27/18 10:32 Triglycerides 258 mg/dL (2-149) H 03/22/18 05:06 Cholesterol 165 mg/dL (50-199) 03/22/18 05:06 LDL Cholesterol Direct 96 mg/dL (50-130) 03/22/18 05:06 HDL Cholesterol 33 mg/dL (40-59) L 03/22/18 05:06 Cholesterol/HDL Ratio 5.00 % 03/22/18 05:06 TSH 0.883 mlU/mL (0.270-4.200) 03/24/18 12:57 Free T4 1.19 ng/dL (0.76-1.46) 03/24/18 12:57
--- NOTE | 2018-03-28 13:43 | Gastroenterology Progress Note ---
Assessment and Plan GI: abdominal pain much improved - ct scan benign - continue current meds and diet - no plans to scope at this time - ok to d/c from GI standpoint, will sign off, call if needed Subjective Date of service: 03/28/18 Principal diagnosis: Embolic CVA. Interval history: - reports abdominal pain much improved, tolerating po Objective - Constitutional Vitals: Temp Pulse Resp BP Pulse Ox 97.9 F 73 16 116/51 96 03/28/18 08:12 03/28/18 08:12 03/28/18 08:12 03/28/18 08:12 03/28/18 08:12 General appearance: no acute distress - EENT Eyes: PERRL - Respiratory Respiratory: bilateral: CTA - Cardiovascular Rhythm: regular Heart Sounds: Present: S1 & S2 - Gastrointestinal General gastrointestinal: Present: soft, non-tender, non-distended - Labs CBC & Chem 7: 03/27/18 10:32 03/27/18 10:32 Labs: Laboratory Results - last 24 hr 03/28/18 07:21 PT 25.8 H INR 2.19 H
[2018-03-28] MEDS ORDERED: COUMADIN PO SCH (17:00)
[2018-03-28] MEDS: TYLENOL PO PRN (21:34)
[2018-03-29] MEDS: KEPPRA PO SCH (05:19)
[2018-03-29 05:46] LABS: Hematocrit 37.2 % (30.3-42.9); Mean Corpuscular HGB Conc 32 % (30-34); Mean Corpuscular Hemoglobin 29 pg (28-32); Mean Corpuscular Volume 91 fl (79-97); Platelet Count 230 K/mm3 (140-440); Red Blood Count 4.08 M/mm3 (3.65-5.03); Red Cell Distribution Width 13.6 % (13.2-15.2)
[2018-03-29 05:54] LABS: INR 2.16 (0.87-1.13)
[2018-03-29 06:02] LABS: BUN/Creatinine Ratio 39; Blood Urea Nitrogen 35 mg/dL (7-17); Calcium 8.8 mg/dL (8.4-10.2); Hemolysis Index 5
[2018-03-29 08:44] VITALS: BP 140/61
[2018-03-29] MEDS: LOPRESSOR PO SCH (09:47)
[2018-03-29] MEDS: BABY ASPIRIN PO SCH (09:47)
--- NOTE | 2018-03-29 10:52 | Discharge Summary ---
Providers - Providers Date of Admission: 03/21/18 21:56 Date of discharge: 03/29/18 Attending physician: FIONA ESPOSITO 03/21/18 Consult to Physician [CONS] Routine Comment: Consulting Provider: ANUEL QUINTANA Physician Instructions: Reason For Exam: cva 03/21/18 22:46 Occupational Therapy Evaluate and Treat [CONS] Routine Comment: Reason For Exam: Neuro deficits Physical Therapy Evaluation and Treat [CONS] Routine Comment: Reason For Exam: Neuro deficits 03/22/18 08:00 Speech Therapy Evaluation and Treat [CONS] Routine Reason For Exam: failed swallow screen 03/25/18 15:47 Consult to Physician [CONS] Routine Comment: Consulting Provider: ISAÍAS RODRIGUES Physician Instructions: Reason For Exam: ARF 03/26/18 14:41 Consult to Physician [CONS] Routine Comment: Consulting Provider: [place] Physician Instructions: Reason For Exam: abdominal pains on Coumadin, embolic strokes Primary care physician: JACKELINE TAYLOR Hospitalization Condition: Stable Hospital course: Ms. Lentz is a 77 yo Comoran speaking woman with a history of hypertension, dyslipidemia, rheumatic fever as a child w/ MVR on Coumadin who pw aphasia and weakness in the extremities. She was not a TPA candidate as she is on Coumadin. Her speech returned and she regained strength in her extermities. 03/22/18 MRI brain: IMPRESSION: 4 small foci of subacute ischemia are identified in the left MCA distribution as described. Multiple small chronic focal infarcts in the left occipital lobe and bilateral cerebellar hemispheres. Volume loss. Chronic white matter changes. Acute CVA, cerebral and cerebellar ischemic infarct moon. Cont Stroke protocol. Brain MRI without contrast, multiple embolic infarcts. Probably cardiogenic. TTE, EF 60-65%, no vegetation or thrombus reported. OT/PT, rehab and speech pathology. CTA head and neck, no big artery occlusion, no significant stenosis. Neurology following Bilateral extremity weakness. Neurology recommends cervical and lumbar MRI without contrast. Follow-up results. Hypertension. Cont antihypertensive meds Mitral valve replacement with subtherapeutic INR. Coumadin to maintain INR 2.5- 3.5 Hx NSTEMI with negative cath 2012 Hypomagnesemia: replaced NSVT: Cardiology is following ARF, vasomotor nephropathy resolved Disposition: continue inpatient care. 03/25/18: hold discharge, for new onset seizures, re-called Dr. Quintana, Neurologist , start Keppra. no more NSVT since 03/23/18 @ [address]. Repeat CT showing new 2.5cm x 1.5 cm ischemic infarct left posterior frontal lobe. Ordered EEG. Also new ARF , ?dye related, will consult Nephrology. 03/26/18: d/w neurologist, Dr. Quintana, agrees with [facility]. EEG pending. Added baby aspirin. Give enema for constipation. get abd xray. consulted GI due to abd pains, d.w Dr. Hill who recommended ct abd/pelvis w/ and w/o contrast, Cr. 0.9 03/27/18: Her main compliant is abd pains and right arm pains. She had an episode of nausea and vomiting today, after eating eggs this morning, CT abd/ pelvis with and wo contrast cancelled by Dr. Ferrera yesterday, he called me today. He is concerned about dye nephropathy. Patient's abd exam in not benign today, as she is quite tender on my exam. I d/w GI again today, Dr. Albin Lewis , who recommends re-ordering CT abd/pelvis with contrast. Which i did; however, the family will not sign off for the CT abd/pelvis now after speaking with Dr. Ferrera. Hopefully, GI will clarify this and give recommendations after they evaluate patient today. Constipation has resolved. I do not know why patient is vomiting. I am concerned that she embolized to abd. vascular. I do agree that gabapentin/lyrica for neuropathy right arm pains. 03/28/18: CT abd/pelvis w/ and w/ contrast reported as no acute findings in the abd/pelvis but Aortoiliac calification and bilateral patchy infiltrates bilateral lung bases. Clinically this is the best she has looked. So, this maybe atelectasis. Everyday, her daughter, Quentin has provided director of gift planning services and she agrees. The abd pains are improved with bowel movement and n/v has resolved. patient wants to go home, but home services hasn' t been arranged, she would benefit from SNF but she has no insurance and she doesn't want placement, she wants to go home, will try to get inhome physical therapy for [facility]. Repeat bmp in am, and it renal function is stable then d/c with home health care ([facility]) 03/29/18: doing well, d/w Daughter, Elroy, cr stable, home today. Disposition: DC-01 TO HOME OR SELFCARE Time spent for discharge: 32 min Core Measure Documentation - Palliative Care Palliative Care/ Comfort Measures: Not Applicable - Core Measures Any of the following diagnoses?: stroke - VTE Discharge Requirements Deep Vein Thrombosis/Pulmonary Embolism Present on Admission: No Has pt received <5 days of overlap therapy or INR<2.0: No Anticoagulant overlap therapy prescribed at discharge: No Contraindication No Overlap Therapy order at DC: Not Indicated - Stroke Discharge Requirements Statin for LDL = or >70 mg/dl on DC: Yes Anticoag for atrial fib/atrial flutter: Not Applicable Reason for no anticoag for AF/F on DC: Not Indicated Antithrombotic for ischemic stroke: Yes Exam - Physical Exam Narrative exam: GEN: WDWN, ill appearingNAD, Awake, Alert, Orientated HEENT: NCAT, EOMI, PERRL, OP Clear NECK: supple, no adenopathy, no thyromegaly, no JVD CVS/HEART: RRR, normal S1S2, pulses present bilaterally CHEST/LUNGS: CTA B, Symmetrical chest expansion, good air entry bilaterally GI/Abdomen: soft, ntnd good bowel sounds, no rebound /Bladder: no suprapubic tenderness, no CVA or paraspinal tenderness EXT/Skin: no c/c/e, no obvious rash MSK: LROM of right side, hands are becoming contracted Neuro: CN 2-12 grossly intact, no new focal deficits, +left side hemiparesis Psych: calm - Constitutional Vitals: Temp Pulse Resp BP Pulse Ox 97.6 F 71 18 140/61 95 03/29/18 08:04 03/29/18 09:47 03/29/18 08:04 03/29/18 09:47 03/29/18 09:00 Plan Activity: up only with assistance, fall precautions, other (no strenous activities, no driving) Diet: low salt Follow up with: JACKELINE TAYLOR MD [Primary Care Provider] - 3-5 Days CLIFFORD VILLEDA MD [Staff Physician] - 7 Days ISAÍAS RODRIGUES MD [Staff Physician] - 7 Days Forms: Warfarin Discharge Instruction Prescriptions: AtorvaSTATin [Lipitor] 40 mg PO QHS #30 tablet Acetaminophen [Acetaminophen TAB] 325 mg PO Q4H PRN #30 tablet PRN Reason: Pain, Mild (1-3) Aspirin [Aspirin BABY CHEW TAB] 81 mg PO QDAY #30 tab.chew Bisacodyl [Dulcolax suppos] 10 mg IN QDAY PRN #2 supp.rect PRN Reason: Constipation HYDROcodone/APAP 10-325 [[place] 10-325 mg TAB] 1 each PO Q4H PRN #15 tablet PRN Reason: Pain, Moderate (4-6) levETIRAcetam [Keppra TAB] 500 mg PO BID@0600,1800 #60 tablet Warfarin [Coumadin] 2 mg PO QPM 30 Days tablet
--- NOTE | 2018-03-31 11:49 | Vascular Lab Report ---
CAROTID DUPLEX STUDY: RIGHT PSVEDV CCA PROX:[id number] CCA DIST:[id number] ICA PROX:[id number] ICA MID:[id number] ICA DIST:[id number] ECA: 181 VERT: 38 4 LEFT PSVEDV CCA PROX:[id number] CCA DIST:[id number] ICA PROX:[id number] ICA MID:03653 ICA DIST:85 15 ECA: 182 VERT: 54 6 REASON FOR EXAM: Stroke. COMMENTS ON THE RIGHT: Doppler frequency analysis is consistent with 16 to 49 percent diameter reduction of the internal carotid artery. A small amount of plaque is seen. The common carotid artery is patent. The external carotid artery is patent. The vertebral artery has antegrade flow. The subclavian artery is patent with normal flow velocity. COMMENTS ON THE LEFT: Doppler frequency analysis is consistent with 16 to 49 percent diameter reduction of the internal carotid artery. A moderate amount of plaque is seen. The common carotid artery is patent. The external carotid artery is patent. The vertebral artery has antegrade flow. Subclavian artery velocity is mildly elevated at 250 cm/s. IMPRESSION: Less than 50% diameter reduction in the internal carotid arteries bilaterally. The subclavian arteries are patent bilaterally, but the velocity is slightly elevated in the left subclavian artery. Consider repeat carotid artery duplex in 12 months.
== END 2018-03-29 14:30 | disposition home or self-care (01) | DRG 64 ==
LOC: ED 18:23 → 4A 21:56
PROVIDERS: ADMIT Internal Medicine; ATTEND Internal Medicine
DX: I63.443 Cerebral infarction due to embolism of bilateral cerebellar arteries (principal); N17.0 Acute kidney failure with tubular necrosis; I47.2 Ventricular tachycardia; G82.20 Paraplegia, unspecified; I10 Essential (primary) hypertension; R29.707 NIHSS score 7; E83.42 Hypomagnesemia; I27.20 Pulmonary hypertension, unspecified; E78.5 Hyperlipidemia, unspecified; I34.0 Nonrheumatic mitral (valve) insufficiency; Z90.49 Acquired absence of other specified parts of digestive tract; Z79.01 Long term (current) use of anticoagulants; Z82.49 Family history of ischemic heart disease and other diseases of the circulatory system; Z95.4 Presence of other heart-valve replacement; Z79.899 Other long term (current) drug therapy; Z80.9 Family history of malignant neoplasm, unspecified; Z83.3 Family history of diabetes mellitus; Z83.6 Family history of other diseases of the respiratory system; Z87.891 Personal history of nicotine dependence
CPT/HCPCS: 36415; 70450; 70496; 70498; 70551; 72141; 72146; 72148; 74019; 74178; 80048; 80053; 80061; 80074; 82140; 82962; 83735; 84439; 84443; 84484; 85025; 85027; 85610; 85670; 85730; 93005; 93010; 93306; 93312; 93320; 93325; 93880; 93970; 94760; A9270-GY; J0360; J2704; J3475; J7040; Q9967

== ENCOUNTER 2019-02-19 14:43 | Emergency (ER) | payer MEDICAID, MEDICARE, OTHER ==
--- NOTE | 2019-02-19 15:04 | Emergency Department Report ---
Blank Doc - Documentation Documentation: 78 y/o female on coumadin presets to ED c/o of spontaneous nose bleed since 13 :40 today associated with headache and elevated blood pressure and dizziness.
[2019-02-19 15:40] LABS: Basophils # (Auto) 0.2 K/mm3 (0.0-0.1); Eosinophils # (Auto) 0.2 K/mm3 (0.0-0.4); Eosinophils % (Auto) 3.8 % (0.0-4.3); Hematocrit 35.9 % (30.3-42.9); Hemoglobin 11.1 gm/dl (10.1-14.3); Lymphocytes # (Auto) 0.9 K/mm3 (1.2-5.4); Lymphocytes % (Auto) 14.2 % (13.4-35.0); Mean Corpuscular HGB Conc 31 % (30-34); Mean Corpuscular Volume 73 fl (79-97); Monocytes # (Auto) 0.5 K/mm3 (0.0-0.8); Monocytes % (Auto) 8.6 % (0.0-7.3); Platelet Count 174 K/mm3 (140-440); Red Blood Count 4.96 M/mm3 (3.65-5.03)
[2019-02-19 15:41] LABS: Red Cell Distribution Width 20.1 % (13.2-15.2)
[2019-02-19 15:45] LABS: INR 2.3 (0.87-1.13)
[2019-02-19 15:55] LABS: BUN/Creatinine Ratio 43; Blood Urea Nitrogen 26 mg/dL (7-17); Calcium 9.2 mg/dL (8.4-10.2); Hemolysis Index 0
--- NOTE | 2019-02-19 16:31 | Cat Scan Report ---
PROCEDURE: CT HEAD/BRAIN WO CON TECHNIQUE: Spiral imaging of the brain was obtained without the use of IV contrast. HISTORY: on coumadin with epistaxsis and headach/dizziness COMPARISONS: Prior CT scan of the brain 03/25/2018 FINDINGS: Brain: There is no evidence of intracranial hemorrhage. No parenchymal hemorrhage is seen. No mass lesions or mass effect is identified. No abnormal extra-axial fluid collections or masses are seen. Peripheral areas of encephalomalacia seen posteriorly in both cerebellar hemispheres. There is also a small old area of encephalomalacia left parietal lobe posterior medially superiorly. This is unchang ed. Old lacunar infarct visualized left caudate nucleus and adjacent left basal ganglia which are unc hanged. There is some decreased density seen in the periventricular white matter without mass effect. This i s fairly symmetric and does not exhibit any mass effect consistent with gliosis probably on the basis of microvascular disease or white matter changes of aging. Ventricles: The ventricles, sulcal pattern and fissures are prominent consistent with atrophy. Bone Windows: No evidence of fracture. Paranasal sinuses: Mucosal thickening is visualized in the right maxillary sinus. Only a small portio n of the maxillary sinuses visualized. Visualized paranasal sinuses otherwise appear clear. Mastoid air cells: Clear. IMPRESSION: Old areas of encephalomalacia seen posteriorly in both cerebellar hemispheres also in the left pariet al lobe posteriorly superiorly medially. Old lacunar infarcts in the left caudate nucleus and left ba gilles ganglia. No acute intracranial abnormalities are identified. No evidence of intracranial hemorrha ge or skull fracture. There is evidence of mild atrophy and gliosis. Paranasal sinus disease as described above. This document is electronically signed by Vlad Coles MD., February 19 2019 04:29:45 PM ET
--- NOTE | 2019-02-19 17:30 | Emergency Department Report ---
ED ENT HPI - General Chief complaint: Nosebleed Stated complaint: NOSE BLEEDING Time Seen by Provider: 02/19/19 15:01 Source: patient Mode of arrival: Wheelchair Limitations: Language Barrier - History of Present Illness Initial comments: Mrs. 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 She had the spontaneous onset of bleeding from the right nostril just prior to arrival. Her family member provided additional history and language Serbian i nterpretation. No trauma. No previous history of nosebleeding. She has been on warfarin therapy for over 20 years. The bleeding lasted several minutes. She also has mild headache and lightheadedness. After being in the ED for 2 hours, she feels much better. MD complaint: epistaxis -: Sudden, This afternoon Location: nose (right nostril) Severity: mild Context-Epistaxis: warfarin use - Related Data Home Medications Medication Instructions Recorded Confirmed Last Taken Metoprolol [Lopressor TAB] 25 mg PO DAILY 10/01/13 03/23/18 03/20/18 Previous Rx's Medication Instructions Recorded Last Taken Type Acetaminophen [Acetaminophen TAB] 325 mg PO Q4H PRN #30 tablet 03/29/18 Unknown Rx Aspirin [Aspirin BABY CHEW TAB] 81 mg PO QDAY #30 tab.chew 03/29/18 Unknown Rx AtorvaSTATin [Lipitor] 40 mg PO QHS #30 tablet 03/29/18 Unknown Rx Bisacodyl [Dulcolax suppos] 10 mg VT QDAY PRN #2 supp.rect 03/29/18 Unknown Rx HYDROcodone/APAP 10-325 [[place] 1 each PO Q4H PRN #15 tablet 03/29/18 Unknown Rx 10-325 mg TAB] Warfarin [Coumadin] 2 mg PO QPM 30 Days tablet 03/29/18 Unknown Rx levETIRAcetam [Keppra TAB] 500 mg PO BID@0600,1800 #60 tablet 03/29/18 Unknown Rx ALBUTEROL Inhaler (OR & NICU) 2 puff IH QID PRN #1 inhalation 08/08/18 Unknown Rx [ProAir HFA Inhaler] Azithromycin [Zithromax Z-SHANI] 250 mg PO DAILY #6 tablet 08/08/18 Unknown Rx Benzonatate [Tessalon Perles] 100 mg PO Q8HR #10 capsule 08/08/18 Unknown Rx predniSONE [Deltasone] 20 mg PO QDAY #5 tab 08/08/18 Unknown Rx Allergies Allergy/AdvReac Type Severity Reaction Status Date / Time No Known Allergies Allergy Verified 02/19/19 14:44 ED Dental HPI - General Chief complaint: Nosebleed Stated complaint: NOSE BLEEDING Time Seen by Provider: 02/19/19 15:01 Source: patient Mode of arrival: Wheelchair Limitations: Language Barrier - Related Data Home Medications Medication Instructions Recorded Confirmed Last Taken Metoprolol [Lopressor TAB] 25 mg PO DAILY 10/01/13 03/23/18 03/20/18 Previous Rx's Medication Instructions Recorded Last Taken Type Acetaminophen [Acetaminophen TAB] 325 mg PO Q4H PRN #30 tablet 03/29/18 Unknown Rx Aspirin [Aspirin BABY CHEW TAB] 81 mg PO QDAY #30 tab.chew 03/29/18 Unknown Rx AtorvaSTATin [Lipitor] 40 mg PO QHS #30 tablet 03/29/18 Unknown Rx Bisacodyl [Dulcolax suppos] 10 mg VT QDAY PRN #2 supp.rect 03/29/18 Unknown Rx HYDROcodone/APAP 10-325 [[place] 1 each PO Q4H PRN #15 tablet 03/29/18 Unknown Rx 10-325 mg TAB] Warfarin [Coumadin] 2 mg PO QPM 30 Days tablet 03/29/18 Unknown Rx levETIRAcetam [Keppra TAB] 500 mg PO BID@0600,1800 #60 tablet 03/29/18 Unknown Rx ALBUTEROL Inhaler (OR & NICU) 2 puff IH QID PRN #1 inhalation 08/08/18 Unknown Rx [ProAir HFA Inhaler] Azithromycin [Zithromax Z-SHANI] 250 mg PO DAILY #6 tablet 08/08/18 Unknown Rx Benzonatate [Tessalon Perles] 100 mg PO Q8HR #10 capsule 08/08/18 Unknown Rx predniSONE [Deltasone] 20 mg PO QDAY #5 tab 08/08/18 Unknown Rx Allergies Allergy/AdvReac Type Severity Reaction Status Date / Time No Known Allergies Allergy Verified 02/19/19 14:44 ED Review of Systems ROS: Stated complaint: NOSE BLEEDING Other details as noted in HPI Comment: All other systems reviewed and negative Cardiovascular: denies: chest pain ED Past Medical Hx - Past Medical History Previous Medical History?: Yes Hx Hypertension: Yes Hx CVA: Yes Hx Arthritis: Yes (Hands) Additional medical history: Pneumonia - Surgical History Hx Open Heart Surgery: Yes Hx Appendectomy: Yes Additional Surgical History: Mitral valve surgery 13 yrs ago - Social History Smoking Status: Never Smoker Substance Use Type: None - Medications Home Medications: Home Medications Medication Instructions Recorded Confirmed Last Taken Type Metoprolol [Lopressor TAB] 25 mg PO DAILY 10/01/13 03/23/18 03/20/18 History Acetaminophen [Acetaminophen TAB] 325 mg PO Q4H PRN #30 tablet 03/29/18 Unknown Rx Aspirin [Aspirin BABY CHEW TAB] 81 mg PO QDAY #30 tab.chew 03/29/18 Unknown Rx AtorvaSTATin [Lipitor] 40 mg PO QHS #30 tablet 03/29/18 Unknown Rx Bisacodyl [Dulcolax suppos] 10 mg VT QDAY PRN #2 supp.rect 03/29/18 Unknown Rx HYDROcodone/APAP 10-325 [[place] 1 each PO Q4H PRN #15 tablet 03/29/18 Unknown Rx 10-325 mg TAB] Warfarin [Coumadin] 2 mg PO QPM 30 Days tablet 03/29/18 Unknown Rx levETIRAcetam [Keppra TAB] 500 mg PO BID@0600,1800 #60 tablet 03/29/18 Unknown Rx ALBUTEROL Inhaler (OR & NICU) 2 puff IH QID PRN #1 inhalation 08/08/18 Unknown Rx [ProAir HFA Inhaler] Azithromycin [Zithromax Z-SHANI] 250 mg PO DAILY #6 tablet 08/08/18 Unknown Rx Benzonatate [Tessalon Perles] 100 mg PO Q8HR #10 capsule 08/08/18 Unknown Rx predniSONE [Deltasone] 20 mg PO QDAY #5 tab 08/08/18 Unknown Rx ED Physical Exam - General Limitations: Language Barrier General appearance: alert, in no apparent distress - Head Head exam: Present: atraumatic, normocephalic - Eye Eye exam: Present: normal appearance - ENT ENT exam: Present: mucous membranes moist, other (dried blood outside right nostril no active bleeding) - Neck Neck exam: Present: normal inspection - Respiratory Respiratory exam: Present: normal lung sounds bilaterally. Absent: respiratory distress, wheezes, rales, rhonchi - Cardiovascular Cardiovascular Exam: Present: regular rate, normal rhythm. Absent: systolic murmur, diastolic murmur, rubs, gallop - GI/Abdominal GI/Abdominal exam: Present: soft, normal bowel sounds. Absent: distended, tend erness, guarding, rebound - Extremities Exam Extremities exam: Present: normal inspection - Back Exam Back exam: Present: normal inspection - Neurological Exam Neurological exam: Present: alert, oriented X3 - Psychiatric Psychiatric exam: Present: normal affect, normal mood - Skin Skin exam: Present: warm, dry, intact, normal color. Absent: rash ED Course Vital Signs 02/19/19 15:02 Temperature 99.4 F Pulse Rate 66 Respiratory 18 Rate Blood Pressure 151/48 [Left] O2 Sat by Pulse 97 Oximetry ED Medical Decision Making - Lab Data Result diagrams: 02/19/19 15:19 02/19/19 15:19 Laboratory Results - last 24 hr 02/19/19 02/19/19 02/19/19 15:19 15:19 15:19 WBC 6.1 RBC 4.96 Hgb 11.1 Hct 35.9 MCV 73 L MCH 22 L MCHC 31 RDW 20.1 H Plt Count 174 Lymph % (Auto) 14.2 [place] % (Auto) 8.6 H Eos % (Auto) 3.8 Baso % (Auto) Lead Database Developer Lymph # 0.9 L [place] # 0.5 Eos # 0.2 Baso # 0.2 H Seg Neutrophils % 70.5 H Seg Neutrophils # 4.3 PT 26.9 H INR 2.30 H Sodium 138 Potassium 4.4 Chloride 99.4 Carbon Dioxide 25 Anion Gap 18 BUN 26 H Creatinine 0.6 L Estimated GFR > 60 BUN/Creatinine Ratio 43 Glucose 121 H Calcium 9.2 - Medical Decision Making Mrs. Lentz presents with mild headache, lightheadedness and mild anterior epistaxis. After reassurance and resolution of epistaxis, headache and lightheadedness have resolved without treatment. Epistaxis was mild. Did not require intervention. She was observed in the ER for 3 hours without recurrent bleeding. I encouraged her to hold warfarin therapy tonight. There are understands to hold 1 dose of medication. I did instruct daughter to apply pressure for 30 minutes if the nosebleed recurred. Discharged home in stable condition. CT head without acute process according to radiology report. No evidence of acute hemorrhage or fracture. There is a evidence of encephalomalacia and previous infarcts CBC chemistry was normal limits. INR therapeutic at 2.3. No significant anemia or metabolic abnormality. Critical care attestation.: If time is entered above; I have spent that time in minutes in the direct care of this critically ill patient, excluding procedure time. ED Disposition Clinical Impression: Epistaxis, Warfarin anticoagulation, Headache, Lightheadedness Disposition: - TO HOME OR SELFCARE Is pt being admited?: No Does the pt Need Aspirin: No Condition: Stable Instructions: Epistaxis (ED) Additional Instructions: Please hold Coumadin therapy tonight. Please skip tonight's dose. Print Language: AUSTRALIAN
[2019-02-19 17:57] VITALS: BP 162/58
== END 2019-02-19 17:58 | disposition home or self-care (01) ==
LOC: ED 14:43
DX: R04.0 Epistaxis (principal); R51 Headache; R42 Dizziness and giddiness; I10 Essential (primary) hypertension; M79.642 Pain in left hand; M79.641 Pain in right hand; Z79.01 Long term (current) use of anticoagulants; Z86.73 Personal history of transient ischemic attack (TIA), and cerebral infarction without residual deficits; Z90.89 Acquired absence of other organs
CPT/HCPCS: 36415; 70450; 80048; 85025; 85610

== ENCOUNTER 2019-08-07 15:40 | Emergency (ER) | payer SELFPAY ==
[2019-08-07] MEDS ORDERED: ZOFRAN IV ONE (16:18)
[2019-08-07] MEDS ORDERED: NORMODYNE IV ONE (16:18)
[2019-08-07] MEDS ORDERED: MORPHINE IV ONE (16:18)
--- NOTE | 2019-08-07 16:31 | Emergency Department Report ---
HPI - General Chief Complaint: Fall Time Seen by Provider: 08/07/19 16:09 - HPI HPI: 79-year-old female presents to the emergency department after falling from one step high and following face forward and hitting her face and head on concrete. There was no loss of consciousness. The patient only speaks Palauan but her daughter is currently at bedside translating for us. The daughter says that she was on her way up the few steps into the house but somehow ended up spinning around and falling forwards. She has a past medical history of hyp ertension, high cholesterol, valve replacement on Coumadin, and previous CVA without deficits. Unknown last tetanus vaccination. ED Past Medical Hx - Past Medical History Hx Hypertension: Yes Hx CVA: Yes Hx Arthritis: Yes (Hands) Additional medical history: Pneumonia - Surgical History Hx Open Heart Surgery: Yes Hx Appendectomy: Yes Additional Surgical History: Mitral valve surgery 13 yrs ago - Social History Smoking Status: Never Smoker - Medications Home Medications: Home Medications Medication Instructions Recorded Confirmed Last Taken Type Metoprolol [Lopressor TAB] 25 mg PO DAILY 10/01/13 03/23/18 03/20/18 History Acetaminophen [Acetaminophen TAB] 325 mg PO Q4H PRN #30 tablet 03/29/18 Unknown Rx Aspirin [Aspirin BABY CHEW TAB] 81 mg PO QDAY #30 tab.chew 03/29/18 Unknown Rx AtorvaSTATin [Lipitor] 40 mg PO QHS #30 tablet 03/29/18 Unknown Rx Bisacodyl [Dulcolax suppos] [address] QDAY PRN #2 supp.rect 03/29/18 Unknown Rx HYDROcodone/APAP 10-325 [[place] 1 each PO Q4H PRN #15 tablet 03/29/18 Unknown Rx 10-325 mg TAB] Warfarin [Coumadin] 2 mg PO QPM 30 Days tablet 03/29/18 Unknown Rx levETIRAcetam [Keppra TAB] 500 mg PO BID@0600,1800 #60 tablet 03/29/18 Unknown Rx ALBUTEROL Inhaler (OR & NICU) 2 puff IH QID PRN #1 inhalation 08/08/18 Unknown Rx [ProAir HFA Inhaler] Azithromycin [Zithromax Z-SHANI] 250 mg PO DAILY #6 tablet 08/08/18 Unknown Rx Benzonatate [Tessalon Perles] 100 mg PO Q8HR #10 capsule 08/08/18 Unknown Rx predniSONE [Deltasone] 20 mg PO QDAY #5 tab 08/08/18 Unknown Rx ED Review of Systems ROS: Stated complaint: FALL,HEAD INJURY Other details as noted in HPI Comment: All other systems reviewed and negative Constitutional: denies: chills, fever Eyes: other (left margot-orbital swelling). denies: eye discharge ENT: denies: ear pain, throat pain Respiratory: denies: cough, shortness of breath Cardiovascular: denies: palpitations, syncope Gastrointestinal: denies: abdominal pain, vomiting Genitourinary: denies: urgency, dysuria Musculoskeletal: denies: back pain, joint swelling Skin: other (swelling, ecchymosis, abrasions). denies: rash Neurological: headache. denies: weakness, numbness, paresthesias Physical Exam - Physical Exam Vital Signs: Vital Signs 08/07/19 16:08 Pulse Rate 67 Respiratory 13 Rate Blood Pressure 201/63 O2 Sat by Pulse 94 Oximetry Physical Exam: GENERAL: The patient is well-developed well-nourished. HENT: Normocephalic. Atraumatic. Patient has moist mucous membranes. EYES: Extraocular motions are intact. Pupils equal reactive to light bilaterally. NECK: Supple. Trachea is midline. There is both midline and bilateral paraspinal tenderness to palpation. No step-off or deformity. CHEST/LUNGS: Clear to auscultation. There is no respiratory distress noted. HEART/CARDIOVASCULAR: Regular. There is no tachycardia. There is no murmur. ABDOMEN: Abdomen is soft, nontender. Patient has normal bowel sounds. There is no abdominal distention. SKIN: There is severe left periorbital edema and ecchymosis. She is unable to open her left eyelids on her own. There is also some left cheek and forehead swelling and ecchymosis. There are some abrasions seen to the nasal bridge and forehead. NEURO: The patient is awake, alert, and cooperative. The patient has no focal neurologic deficits. Normal speech. MUSCULOSKELETAL: There is no tenderness or deformity. There is no evidence of acute injury. BACK: No midline thoracic or lumbar tenderness to palpation, step-off or deformity. ED Course Vital Signs 08/07/19 16:08 Pulse Rate 67 Respiratory 13 Rate Blood Pressure 201/63 O2 Sat by Pulse 94 Oximetry - Consultations Consultation #1: With the results of the subdural hematoma and the facial fracture with intraorbital air and mass effect, the patient needs transfer to a trauma facili ty. I spoke with Dr. Rice at [facility] who has accepted the patient to the trauma service. They have requested for the images to be placed on a CD-ROM brother was no further orders have been given at this time. 08/07/19 18:42 ED Medical Decision Making - Lab Data Result diagrams: 08/07/19 16:58 08/07/19 17:05 - Radiology Data Radiology results: report reviewed CT BRAIN: 08/07/2019 INDICATION / CLINICAL INFORMATION: MAIN: fall, head injury, on blood thinners FELL ON CONCRETE LEFT SIDE WORSE . COMPARISON: 02/19/2019 FINDINGS: BRAIN/INTRACRANIAL STRUCTURES: Unenhanced CT images of the brain were obtained and compared to a prior exam from 02/19/2019. There has been interval development of thickening of the dorsal aspect of the falx, as well as the right tentorium, consistent with a small thin falcine subdural hematoma, which has a maximum thickness of approximately 3-4 mm along the tentorium, and 2-3 mm along the posterior falx. There is no evidence of mass effect. No other hemorrhagic changes are noted. Prominent diffuse cerebral atrophy is again noted. Chronic ischemic changes are noted again in the right cerebellum and left occipital lobe. There is no evidence of intracranial hemorrhage or mass. There are no abnormal extra-axial fluid collections. Prominent left periorbital soft tissue swelling and hematoma formation is present, along with evidence of left medial orbital wall fracture. CT images of the facial bones are reported separately. EXTRACRANIAL STRUCTURES: Unremarkable. IMPRESSION: 2-3 mm posterior falx and right tentorial subdural hematoma. Chronic and age-related changes. Left periorbital injury, reported in detail on the separate facial CT the report CT CERVICAL SPINE: 08/07/2019 INDICATION / CLINICAL INFORMATION: fall, head injury, on blood thinners. COMPARISON: None available. FINDINGS: CT images of the cervical spine were obtained. Images are evaluated in the axial, coronal, and sagittal planes. There is no evidence of acute traumatic injury. Slight left convex scoliosis of the cervical spine is present with the patient positioned for this exam. Vertebral body alignment is otherwise unremarkable. Vertebral body height is normal. Mild degenerative changes are noted, most prominently involving the right facet joints at the C4-5, C5-6, and C6-7 levels. LEVEL BY LEVEL ANALYSIS: . CRANIOCERVICAL JUNCTION: Unremarkable. PARASPINAL STRUCTURES: Unremarkable. IMPRESSION: No acute abnormality. FACIAL CT 08/07/2019 HISTORY: Facial trauma FINDINGS: CT images of the facial bones were obtained. Images are evaluated in the axial, coronal, and sagittal planes. There is extensive left periorbital soft tissue swelling. There is fracture of the medial wall of the right orbit, with medial displacement of orbital contents into the adjacent ethmoid sinuses. Soft tissue swelling and air density is present along the medial aspect of the right orbit, medial to the extraocular muscle. This creates mass effect and accentuated proptosis of the left globe. There also appears to be slight buckling of the lateral wall of the left orbit. The left orbital floor itself appears to be intact. Nasal bones are intact. Facial CT structures are otherwise unremarkable. Incidental note is made of postoperative and posttraumatic changes of the right maxillary sinus, with metallic densities/fragments present along the posterior wall the right maxillary sinus. This has a chronic appearance IMPRESSION: Right lamina papyracea fracture, with evidence of medial intraorbital air and edema, resulting in mass effect. Extensive left periorbital soft tissue swelling. - Medical Decision Making This patient presents from home after falling from 1 step up onto her face and head. There was no loss of consciousness. She presents with facial swelling and ecchymosis and the complaints of a headache, facial pain and some pain to the right lateral rib cage/chest wall. CT scan of the head without contrast shows a right posterior falx and tentorial subdural hematoma but no mass effect or shift. There is also some right-sided medial orbital facial fractures that causes some mass effect towards the left globe causing some proptosis. Labs have been mostly unremarkable except for a urinary tract infection. She is therapeutic on her Coumadin. With the discovery of these injuries, the patient will be transferred to a trauma center and was accepted by [facility]. All of the lab and imaging results, as well as the plan for transfer, were discussed with the patient and her daughter. - Differential Diagnosis subarachnoid, subdural, skull fracture, facial fractures, concussion Critical Care Time: Yes Critical care time in (mins) excluding proc time.: 35 Critical care attestation.: If time is entered above; I have spent that time in minutes in the direct care of this critically ill patient, excluding procedure time. Critical care time was spent on this patient during her initial evaluation, multiple re- evaluations, ordering and interpretation of labs and imaging, discussion with the patient and her family, discussion with the trauma surgeon at [facility]. Critical Care Time: 35 minutes ED Disposition Clinical Impression: Hypertensive urgency, Anticoagulation monitoring, INR range 2.5-3.5, Subdural hematoma, acute [place] papyracea fracture Qualifiers: Encounter type: initial encounter Fracture type: closed Qualified Code(s): S02.19XA - Other fracture of base of skull, initial encounter for closed fr acture Disposition: DC/TX-70 ANOTHER TYPE HLTHCARE Is pt being admited?: Yes Condition: Serious Referrals: JENNA LATIF MD [Primary Care Provider] - 3-5 Days Time of Disposition: 18:44
[2019-08-07] MEDS ORDERED: BOOSTRIX IM ONE (16:32)
--- NOTE | 2019-08-07 17:13 | XRay Report ---
CHEST PA AND LATERAL VIEWS INDICATION: fall, right sided low chest wall pain. COMPARISON: 08/07/2018 FINDINGS: Support devices: None Heart: Stable. Lungs/Pleura: No obvious rib fractures. No pneumothorax or other acute abnormality. IMPRESSION: 1. No significant change. Signer Name: Serafin Ramos MD Signed: 08/07/2019 5:08 PM Workstation Name: [id number]
[2019-08-07 17:14] LABS: Basophils # (Auto) 0.1 K/mm3 (0.0-0.1); Basophils % (Auto) 1.1 % (0.0-1.8); Eosinophils # (Auto) 0.1 K/mm3 (0.0-0.4); Eosinophils % (Auto) 1.5 % (0.0-4.3); Hematocrit 39.2 % (30.3-42.9); Hemoglobin 12.4 gm/dl (10.1-14.3); Lymphocytes # (Auto) 0.9 K/mm3 (1.2-5.4); Lymphocytes % (Auto) 14.7 % (13.4-35.0); Mean Corpuscular HGB Conc 32 % (30-34); Mean Corpuscular Volume 78 fl (79-97); Monocytes # (Auto) 0.6 K/mm3 (0.0-0.8); Monocytes % (Auto) 10.3 % (0.0-7.3); Platelet Count 152 K/mm3 (140-440); Red Blood Count 5.05 M/mm3 (3.65-5.03); Red Cell Distribution Width 20.3 % (13.2-15.2)
--- NOTE | 2019-08-07 17:14 | Cat Scan Report ---
CT BRAIN: 08/07/2019 INDICATION / CLINICAL INFORMATION: MAIN: fall, head injury, on blood thinners FELL ON CONCRETE LEFT SIDE WORSE . COMPARISON: 02/19/2019 FINDINGS: BRAIN/INTRACRANIAL STRUCTURES: Unenhanced CT images of the brain were obtained and compared to a prio r exam from 02/19/2019. There has been interval development of thickening of the dorsal aspect of the falx, as well as the ri ght tentorium, consistent with a small thin falcine subdural hematoma, which has a maximum thickness of approximately 3-4 mm along the tentorium, and 2-3 mm along the posterior falx. There is no evidenc e of mass effect. No other hemorrhagic changes are noted. Prominent diffuse cerebral atrophy is again noted. Chronic ischemic changes are noted again in the right cerebellum and left occipital lobe. There is no evidence of intracranial hemorrhage or mass. There are no abnormal extra-axial fluid dahlia ections. Prominent left periorbital soft tissue swelling and hematoma formation is present, along with evidenc e of left medial orbital wall fracture. CT images of the facial bones are reported separately. EXTRACRANIAL STRUCTURES: Unremarkable. IMPRESSION: 2-3 mm posterior falx and right tentorial subdural hematoma. Chronic and age-related changes. Left periorbital injury, reported in detail on the separate facial CT the report All CT scans at this location are performed using dose reduction to ALARA by means of automated expos ure control. Signer Name: Sampson Bustamante MD Signed: 08/07/2019 5:10 PM Workstation Name: [id number]
--- NOTE | 2019-08-07 17:14 | XRay Report ---
AP PELVIS INDICATION / CLINICAL INFORMATION: fall. COMPARISON: None available. FINDINGS: Negative. Signer Name: Serafin Ramos MD Signed: 08/07/2019 5:09 PM Workstation Name: [id number]
--- NOTE | 2019-08-07 17:20 | Cat Scan Report ---
FACIAL CT 08/07/2019 HISTORY: Facial trauma FINDINGS: CT images of the facial bones were obtained. Images are evaluated in the axial, coronal, an d sagittal planes. There is extensive left periorbital soft tissue swelling. There is fracture of the medial wall of the right orbit, with medial displacement of orbital contents into the adjacent ethmoid sinuses. Soft ti ssue swelling and air density is present along the medial aspect of the right orbit, medial to the ex traocular muscle. This creates mass effect and accentuated proptosis of the left globe. There also ap pears to be slight buckling of the lateral wall of the left orbit. The left orbital floor itself appe ars to be intact. Nasal bones are intact. Facial CT structures are otherwise unremarkable. Incidental note is made of postoperative and posttraumatic changes of the right maxillary sinus, with metallic densities/fragments present along the posterior wall the right maxillary sinus. This has a chronic appearance IMPRESSION: Right lamina papyracea fracture, with evidence of medial intraorbital air and edema, res ulting in mass effect. Extensive left periorbital soft tissue swelling. All CT scans at this location are performed using dose reduction to ALARA by means of automated expos ure control. Signer Name: Sampson Bustamante MD Signed: 08/07/2019 5:15 PM Workstation Name: [id number]
--- NOTE | 2019-08-07 17:22 | Cat Scan Report ---
CT CERVICAL SPINE: 08/07/2019 INDICATION / CLINICAL INFORMATION: fall, head injury, on blood thinners. COMPARISON: None available. FINDINGS: CT images of the cervical spine were obtained. Images are evaluated in the axial, coronal, and sagit donnie planes. There is no evidence of acute traumatic injury. Slight left convex scoliosis of the cervical spine is present with the patient positioned for this ex am. Vertebral body alignment is otherwise unremarkable. Vertebral body height is normal. Mild degenerative changes are noted, most prominently involving the right facet joints at the C4-5, C 5-6, and C6-7 levels. LEVEL BY LEVEL ANALYSIS: . CRANIOCERVICAL JUNCTION: Unremarkable. PARASPINAL STRUCTURES: Unremarkable. IMPRESSION: No acute abnormality. All CT scans at this location are performed using dose reduction to ALARA by means of automated expos ure control. Signer Name: Sampson Bustamante MD Signed: 08/07/2019 5:18 PM Workstation Name: [id number]
[2019-08-07 17:24] LABS: INR 2.62 (0.87-1.13)
[2019-08-07 17:25] LABS: Partial Thromboplastin Time 40.5 Sec. (24.2-36.6)
[2019-08-07 17:32] LABS: BUN/Creatinine Ratio 38; Blood Urea Nitrogen 30 mg/dL (7-17); Calcium 9.6 mg/dL (8.4-10.2); Hemolysis Index 8
[2019-08-07 17:33] LABS: Bacteria,Urine 1+ /HPF (Negative); Bilirubin,Urine NEG (Negative); Blood,Urine SM (Negative); Color,Urine Yellow (Yellow); Mucus,Urine FEW /HPF
[2019-08-07 18:11] VITALS: BP 173/61
== END 2019-08-07 19:00 | disposition other institution (70) ==
LOC: ED 15:40
DX: S02.19XA Other fracture of base of skull, initial encounter for closed fracture (principal); S06.5X0A Traumatic subdural hemorrhage without loss of consciousness, initial encounter; I16.0 Hypertensive urgency; I10 Essential (primary) hypertension; Z86.73 Personal history of transient ischemic attack (TIA), and cerebral infarction without residual deficits; M19.90 Unspecified osteoarthritis, unspecified site; Z79.82 Long term (current) use of aspirin; Z79.899 Other long term (current) drug therapy; W18.30XA Fall on same level, unspecified, initial encounter; Y93.89 Activity, other specified; Y92.89 Other specified places as the place of occurrence of the external cause; Y99.8 Other external cause status
CPT/HCPCS: 36415; 70450; 70486; 71046; 72125; 72170; 80048; 81001; 85025; 85610; 85730; 87086; 96374; 96375; 99291; J2270; J2405; 87076; 87186

== ENCOUNTER 2019-08-31 17:53 | Emergency (ER) | payer SELFPAY ==
--- NOTE | 2019-08-31 18:08 | Emergency Department Report ---
- General Stated complaint: AMS Time Seen by Provider: 08/31/19 18:05 Source: patient, family Mode of arrival: Stretcher Limitations: Language Barrier, Altered Mental Status - History of Present Illness Initial comments: Patient is an 79-year-old female that presents emergency room with complaints of generalized weakness. Daughter states that the patient also became altered. Daughter states that the patient was recently discharged from [facility] for subdural hematoma and is still on Coumadin. Daughter states that her INR was checked yesterday and is at 10. Daughter states that the symptoms started about 1 hour ago. MD Complaint: generalized weakness -: Sudden Consistency: constant Improves with: none Worsens with: none Associated Symptoms: confusion. denies: dark stools, diaphoresis, dysuria, easy bruising, fever/chills, headaches, loss of appetite, nausea/vomiting, myalgias, rash, shortness of breath, syncope - Related Data Home Medications Medication Instructions Recorded Confirmed Last Taken Metoprolol [Lopressor TAB] 25 mg PO DAILY 10/01/13 03/23/18 03/20/18 Previous Rx's Medication Instructions Recorded Last Taken Type Acetaminophen [Acetaminophen TAB] 325 mg PO Q4H PRN #30 tablet 03/29/18 Unknown Rx Aspirin [Aspirin BABY CHEW TAB] 81 mg PO QDAY #30 tab.chew 03/29/18 Unknown Rx AtorvaSTATin [Lipitor] 40 mg PO QHS #30 tablet 03/29/18 Unknown Rx Bisacodyl [Dulcolax suppos] 10 mg RI QDAY PRN #2 supp.rect 03/29/18 Unknown Rx HYDROcodone/APAP 10-325 [[place] 1 each PO Q4H PRN #15 tablet 03/29/18 Unknown Rx 10-325 mg TAB] Warfarin [Coumadin] 2 mg PO QPM 30 Days tablet 03/29/18 Unknown Rx levETIRAcetam [Keppra TAB] 500 mg PO BID@0600,1800 #60 tablet 03/29/18 Unknown Rx ALBUTEROL Inhaler (OR & NICU) 2 puff IH QID PRN #1 inhalation 08/08/18 Unknown Rx [ProAir HFA Inhaler] Azithromycin [Zithromax Z-SHANI] 250 mg PO DAILY #6 tablet 08/08/18 Unknown Rx Benzonatate [Tessalon Perles] 100 mg PO Q8HR #10 capsule 08/08/18 Unknown Rx predniSONE [Deltasone] 20 mg PO QDAY #5 tab 08/08/18 Unknown Rx Allergies Allergy/AdvReac Type Severity Reaction Status Date / Time No Known Allergies Allergy Verified 08/31/19 19:40 ED Review of Systems ROS: Stated complaint: AMS Other details as noted in HPI Constitutional: weakness. denies: chills, fever Eyes: denies: eye pain, eye discharge, vision change ENT: denies: ear pain, throat pain Respiratory: denies: cough, shortness of breath, wheezing Cardiovascular: denies: chest pain, palpitations Endocrine: no symptoms reported Gastrointestinal: denies: abdominal pain, nausea, diarrhea Genitourinary: denies: urgency, dysuria, discharge Musculoskeletal: denies: back pain, joint swelling, arthralgia Skin: denies: rash, lesions Neurological: weakness. denies: headache, paresthesias Psychiatric: denies: anxiety, depression Hematological/Lymphatic: denies: easy bleeding, easy bruising ED Past Medical Hx - Past Medical History Previous Medical History?: Yes Hx Hypertension: Yes Hx CVA: Yes Hx Arthritis: Yes (Hands) Additional medical history: Pneumonia - Surgical History Hx Open Heart Surgery: Yes Hx Appendectomy: Yes Additional Surgical History: Mitral valve surgery 13 yrs ago - Family History Family history: no significant - Social History Smoking Status: Never Smoker Substance Use Type: None - Medications Home Medications: Home Medications Medication Instructions Recorded Confirmed Last Taken Type Metoprolol [Lopressor TAB] 25 mg PO DAILY 10/01/13 03/23/18 03/20/18 History Acetaminophen [Acetaminophen TAB] 325 mg PO Q4H PRN #30 tablet 03/29/18 Unknown Rx Aspirin [Aspirin BABY CHEW TAB] 81 mg PO QDAY #30 tab.chew 03/29/18 Unknown Rx AtorvaSTATin [Lipitor] 40 mg PO QHS #30 tablet 03/29/18 Unknown Rx Bisacodyl [Dulcolax suppos] 10 mg RI QDAY PRN #2 supp.rect 03/29/18 Unknown Rx HYDROcodone/APAP 10-325 [[place]opax[place] 1 each PO Q4H PRN #15 tablet 03/29/18 Unknown Rx 10-325 mg TAB] Warfarin [Coumadin] 2 mg PO QPM 30 Days tablet 03/29/18 Unknown Rx levETIRAcetam [Keppra TAB] 500 mg PO BID@0600,1800 #60 tablet 03/29/18 Unknown Rx ALBUTEROL Inhaler (OR & NICU) 2 puff IH QID PRN #1 inhalation 08/08/18 Unknown Rx [ProAir HFA Inhaler] Azithromycin [Zithromax Z-SHANI] 250 mg PO DAILY #6 tablet 08/08/18 Unknown Rx Benzonatate [Tessalon Perles] 100 mg PO Q8HR #10 capsule 08/08/18 Unknown Rx predniSONE [Deltasone] 20 mg PO QDAY #5 tab 08/08/18 Unknown Rx ED Physical Exam - General Limitations: Language Barrier, Altered Mental Status General appearance: alert, in no apparent distress - Head Head exam: Present: atraumatic, normocephalic - Eye Eye exam: Present: normal appearance, PERRL Pupils: Present: normal accommodation - ENT ENT exam: Present: mucous membranes moist - Neck Neck exam: Present: normal inspection - Respiratory Respiratory exam: Present: normal lung sounds bilaterally. Absent: respiratory distress - Cardiovascular Cardiovascular Exam: Present: regular rate, normal rhythm. Absent: systolic murmur, diastolic murmur, rubs, gallop - GI/Abdominal GI/Abdominal exam: Present: soft, normal bowel sounds - Rectal Rectal exam: Present: deferred - Extremities Exam Extremities exam: Present: normal inspection - Back Exam Back exam: Present: normal inspection - Neurological Exam Neurological exam: Present: altered - Skin Skin exam: Present: warm, dry, intact, normal color. Absent: rash - Assessment Assessment Interval: Baseline - Level of Consciousness 1a. Level of Consciousness: alert/keenly responsive - LOC Questions 1b. LOC Questions: answers both correctly - LOC Command 1c. LOC Commands: performs tasks correctly - Best Gaze 2. Best Gaze: normal - Visual 3. Visual: no visual loss - Facial Palsy 4. Facial Palsy: minor paralysis - Motor Arm 5a. Motor Arm Left: no drift 5b. Motor Arm Right: no drift - Motor Leg 6a. Motor Leg Left: no gravity effort 6b. Motor Leg Right: no drift - Limb Ataxia 7. Limb Ataxia: absent - Sensory 8. Sensory: normal - Best Language 9. Best Language: no aphasia - Dysarthria 10. Dysarthria: normal - Extinction and Inattention 11. Extinction/Inattention: no abnormality - Scoring Total Score: 4 Stroke Severity: Minor Stroke ED Course Vital Signs 08/31/19 08/31/19 08/31/19 17:53 18:13 18:45 Temperature 97.6 F Pulse Rate 103 H 99 H Respiratory 16 16 18 Rate Blood Pressure 161/68 Blood Pressure 161/68 171/68 [Left] O2 Sat by Pulse 98 100 Oximetry 08/31/19 08/31/19 19:30 20:50 Temperature 98 F Pulse Rate 99 H 101 H Respiratory 20 17 Rate Blood Pressure Blood Pressure 159/67 155/65 [Left] O2 Sat by Pulse 97 96 Oximetry - Reevaluation(s) Reevaluation #1: Code stroke initiated. 08/31/19 18:15 Reevaluation #2: Patient found to have a supratherapeutic INR. Patient will be given 10 g of vitamin K. 08/31/19 19:36 - Consultations Consultation #1: I discussed case with neurologist. Neurologist recommended CTA and then transferred to [facility]. 08/31/19 19:00 Consultation #2: I discussed case with neurosurgery and neurosurgery does not want a CTA to be done. 08/31/19 20:30 Neurointensive is has accepted the patient, Dr. Gonsalez. 08/31/19 20:40 I discussed case again with Dr. Gonsalez, neuro welder journeyman. 09/01/19 23:10 ED Medical Decision Making - Lab Data Result diagrams: 08/31/19 18:54 08/31/19 18:54 - EKG Data -: EKG Interpreted by Me EKG shows normal: sinus rhythm, axis, intervals, QRS complexes, ST-T waves Rate: normal - Radiology Data Radiology results: report reviewed, image reviewed interpreted by me: no acute findings on chest x-ray CT HEAD WITHOUT CONTRAST INDICATION / CLINICAL INFORMATION: Weakness. TECHNIQUE: All CT scans at this location are performed using CT dose reduction for ALARA by means of automated exposure control. COMPARISON: Head CT 08/07/2019 and 03/25/2018. FINDINGS: HEMORRHAGE: There is a large right-sided subdural collection. This low- attenuation collection measures a maximum of 2.4 cm in greatest thickness. There is prominent mass effect with effacement of cortical sulci over the lateral convexity of the right cerebral hemisphere. There are about 11 or 12 mm of right to left midline shift at the level of the septum pellucidum. There is no indication of uncal herniation. There is partial effacement of the posterior body, occipital horn and atria of the right lateral ventricle. Also demonstrated is a large mixed attenuation right-sided tentorial subdural hematoma measuring about 12 mm in greatest thickness. This contributes to mass effect and effacement of the atria and occipital horn of the left lateral ventricle. The tentorial hematoma extends up along the right lateral aspect of the falx posteriorly. EXTRA-AXIAL SPACES: Cortical sulci over the convexity of the left cerebral hemisphere enlarged reflecting age related atrophy in this 79-year-old individual. VENTRICULAR SYSTEM: Compression of the right lateral ventricle secondary to the patient's large right parietal subdural hematoma is noted as described above. There is expected dilatation of the frontal horn of the left lateral ventricle. The left lateral ventricle is not significantly changed in size in comparison to previous study. CEREBRAL PARENCHYMA: A remote small deep infarction is observed in the region of the head of caudate nucleus and anterior limb internal capsule on the left. MIDLINE SHIFT OR HERNIATION: 11 to 12 mm of right to left midline shift are noted at the level of the septum pellucidum. CEREBELLUM / BRAINSTEM: Brainstem has an unremarkable appearance. Moderate cerebellar atrophy is noted. Findings suggest remote right cerebellar infarction. INTRACRANIAL VESSELS: Calcified atherosclerotic plaque is present along the course of the cavernous segments of both internal carotid arteries. ORBITS: Status post right-sided cataract surgery. No additional abnormality. SOFT TISSUES of HEAD: No significant abnormality. CALVARIUM: Evaluation of bone windows reveals no abnormalities. PARANASAL SINUSES / MASTOID AIR CELLS: Evidence of chronic right maxillary sinusitis. Metallic fragments are present in the deep face near the pterygopalatine recess. Correlation with surgical history is advised. These findings are unchanged. IMPRESSION: 1. Large, right-sided low-attenuation subdural hematoma with mass effect resulting in about 11 to 12 mm of midline shift at the level of the septum pellucidum. 2. Large right-sided tentorial subdural hematoma extending up along the right side of the falx. Critical result: Time of discovery: 1755 Central standard time Notification: I called report of this study to Dr. Alvarado at the [facility] emergency department at about 1802 Central standard time. CHEST 1 VIEW INDICATION: Weakness. COMPARISON: 08/07/2019 FINDINGS: SUPPORT DEVICES: None. HEART / MEDIASTINUM: No significant abnormality. LUNGS / PLEURA: No significant pulmonary or pleural abnormality. No pneumothorax. ADDITIONAL FINDINGS: IMPRESSION: 1. No acute findings. - Medical Decision Making Patient is an 79-year-old female that presents emergency room with complaints of weakness and altered mental status. Patient initial evaluation done and a code stroke was called. Patient had a stat head CT which shows a subdural hematoma with midline shift as well as a supratentorial subdural hematoma. Patient also found to have a supratherapeutic INR 14. Patient was given vitamin K. Patient also found to be hypokalemia. Patient given Keppra in the ER. Patient will be transferred to [facility] neuro surgery team for further evaluation treatment. - Differential Diagnosis subdural hematoma. ICH. Stroke. Weakness. Critical Care Time: Yes Critical care attestation.: If time is entered above; I have spent that time in minutes in the direct care of this critically ill patient, excluding procedure time. Critical Care Time: 75 minutes ED Disposition Clinical Impression: Weakness, Facial droop, SDH (subdural hematoma), Supratherapeutic INR, Hypokalemia Disposition: DC/TX-70 ANOTHER TYPE HLTHCARE Is pt being admited?: No Does the pt Need Aspirin: No Condition: Critical Time of Disposition: 20:50
--- NOTE | 2019-08-31 18:26 | XRay Report ---
CHEST 1 VIEW INDICATION: Weakness. COMPARISON: 08/07/2019 FINDINGS: SUPPORT DEVICES: None. HEART / MEDIASTINUM: No significant abnormality. LUNGS / PLEURA: No significant pulmonary or pleural abnormality. No pneumothorax. ADDITIONAL FINDINGS: IMPRESSION: 1. No acute findings. Signer Name: Ascencion Wong MD Signed: 08/31/2019 6:22 PM Workstation Name: [id number]
--- NOTE | 2019-08-31 18:48 | Emergency Department Report ---
ED Neuro Deficit HPI - General Chief Complaint: Weakness Stated Complaint: AMS Time Seen by Provider: 08/31/19 18:05 Source: patient, family Mode of arrival: Stretcher Limitations: Language Barrier, Altered Mental Status - History of Present Illness Initial Comments: [employer] [facility] Date of Service: 08/31/2019 18:19:20 Impression: RO Acute Ischemic Stroke Comments: acute onset L leg weakness and right facial droop - CT head shows acute on chronic elements of SDH. DDx due to worsening SDH from elevated INR vs right hemisphere stroke. Mechanism of Stroke: Not Clear Metrics: Last Known Well: 08/31/2019 17:00:00 [employer] Notification Time: 08/31/2019 18:17:45 Arrival Time: 08/31/2019 17:53:00 Stamp Time: 08/31/2019 18:19:20 Time First Login Attempt: 08/31/2019 18:30:11 Video Start Time: 08/31/2019 18:30:11 Symptoms: weakness NIHSS Start Assessment Time: 08/31/2019 18:37:10 Patient is not a candidate for tPA. Patient was not deemed candidate for tPA thrombolytics because of Current or Previous ICH. Video End Time: 08/31/2019 18:43:47 CT head was reviewed. Advanced imaging CTA head and neck obtained. ER physician notified of the decision on thrombolytics management. Our recommendations are outlined below. Recommendations: hold coumadin; reverse INR. Recommended Scan: MRI Head Lipid Panel to Be Obtained, if Not Done in the Last Three Months Therapies: Physical Therapy, Occupational Therapy, Speech Therapy Assessment When Applicable Dysphaghia Screen: Swallow Evaluation, Bedside NPO Until Swallow Evaluation DVT prophylaxis: SCDs, Pneumatic Compression Disposition: Follow up with Teleneurology Follow up Sign Out: Discussed with Emergency Department Provider History of Present Illness: Patient is a 79 years old Female. Patient was brought by EMS for symptoms of weakness 80 yo woman who was walking with her walker when she developed generalized weakness. Her daughter caught her and set her down. She had a right facial droop. She takes coumadin, and her INR was 10 today. She was diagnosed with SDH 3 weeks ago, and the coumadin was stopped for [address] head was reviewed. Examination: 1A: Level of Consciousness - Alert; keenly responsive + 0 1B: Ask Month and Age - Could Not Answer Either Question Correctly + 2 1C: Blink Eyes & Squeeze Hands - Performs Both Tasks + 0 2: Test Horizontal Extraocular Movements - Normal + 0 3: Test Visual Diaz - No Visual Loss + 0 4: Test Facial Palsy (Use Grimace if Obtunded) - Minor paralysis (flat nasolabial fold, smile asymetry) + 1 5A: Test Left Arm Motor Drift - No Drift for 10 Seconds + 0 5B: Test Right Arm Motor Drift - No Drift for 10 Seconds + 0 6A: Test Left Leg Motor Drift - No Effort Against [place] + 3 6B: Test Right Leg Motor Drift - No Drift for 5 Seconds + 0 7: Test Limb Ataxia (FNF/Heel-Jones) - No Ataxia + 0 8: Test Sensation - Normal; No sensory loss + 0 9: Test Language/Aphasia - Normal; No aphasia + 0 10: Test Dysarthria - Normal + 0 11: Test Extinction/Inattention - No abnormality + 0 NIHSS Score: 6 Patient was informed the Neurology Consult would happen via TeleHealth consult by way of interactive audio and video telecommunications and consented to receiving care in this manner. Due to the immediate potential for life-threatening deterioration due to underlying acute neurologic illness, I spent 35 minutes providing critical care. This time includes time for face to face visit via telemedicine, review of medical records, imaging studies and discussion of findings with providers, the patient and/or family. Dr Delroy Anderson [employer] - Related Data Home Medications: Home Medications Medication Instructions Recorded Confirmed Last Taken Metoprolol [Lopressor TAB] 25 mg PO DAILY 10/01/13 03/23/18 03/20/18 Previous Rx's Medication Instructions Recorded Last Taken Type Acetaminophen [Acetaminophen TAB] 325 mg PO Q4H PRN #30 tablet 03/29/18 Unknown Rx Aspirin [Aspirin BABY CHEW TAB] 81 mg PO QDAY #30 tab.chew 03/29/18 Unknown Rx AtorvaSTATin [Lipitor] 40 mg PO QHS #30 tablet 03/29/18 Unknown Rx Bisacodyl [Dulcolax suppos] 10 mg TN QDAY PRN #2 supp.rect 03/29/18 Unknown Rx HYDROcodone/APAP 10-325 [[place] 1 each PO Q4H PRN #15 tablet 03/29/18 Unknown Rx 10-325 mg TAB] Warfarin [Coumadin] 2 mg PO QPM 30 Days tablet 03/29/18 Unknown Rx levETIRAcetam [Keppra TAB] 500 mg PO BID@0600,1800 #60 tablet 03/29/18 Unknown Rx ALBUTEROL Inhaler (OR & NICU) 2 puff IH QID PRN #1 inhalation 08/08/18 Unknown Rx [ProAir HFA Inhaler] Azithromycin [Zithromax Z-SHANI] 250 mg PO DAILY #6 tablet 08/08/18 Unknown Rx Benzonatate [Tessalon Perles] 100 mg PO Q8HR #10 capsule 08/08/18 Unknown Rx predniSONE [Deltasone] 20 mg PO QDAY #5 tab 08/08/18 Unknown Rx Allergies/Adverse Reactions: Allergies Allergy/AdvReac Type Severity Reaction Status Date / Time No Known Allergies Allergy Verified 08/07/19 16:13 ED Review of Systems ROS: Stated complaint: AMS Other details as noted in HPI Constitutional: weakness. denies: chills, fever Eyes: denies: eye pain, eye discharge, vision change ENT: denies: ear pain, throat pain Respiratory: denies: cough, shortness of breath, wheezing Cardiovascular: denies: chest pain, palpitations Endocrine: no symptoms reported Gastrointestinal: denies: abdominal pain, nausea, diarrhea Genitourinary: denies: urgency, dysuria, discharge Musculoskeletal: denies: back pain, joint swelling, arthralgia Skin: denies: rash, lesions Neurological: weakness. denies: headache, paresthesias Psychiatric: denies: anxiety, depression Hematological/Lymphatic: denies: easy bleeding, easy bruising ED Past Medical Hx - Past Medical History Previous Medical History?: Yes Hx Hypertension: Yes Hx CVA: Yes Hx Arthritis: Yes (Hands) Additional medical history: Pneumonia - Surgical History Hx Open Heart Surgery: Yes Hx Appendectomy: Yes Additional Surgical History: Mitral valve surgery 13 yrs ago - Social History Smoking Status: Never Smoker - Medications Home Medications: Home Medications Medication Instructions Recorded Confirmed Last Taken Type Metoprolol [Lopressor TAB] 25 mg PO DAILY 10/01/13 03/23/18 03/20/18 History Acetaminophen [Acetaminophen TAB] 325 mg PO Q4H PRN #30 tablet 03/29/18 Unknown Rx Aspirin [Aspirin BABY CHEW TAB] 81 mg PO QDAY #30 tab.chew 03/29/18 Unknown Rx AtorvaSTATin [Lipitor] 40 mg PO QHS #30 tablet 03/29/18 Unknown Rx Bisacodyl [Dulcolax suppos] 10 mg TN QDAY PRN #2 supp.rect 03/29/18 Unknown Rx HYDROcodone/APAP 10-325 [[place] 1 each PO Q4H PRN #15 tablet 03/29/18 Unknown Rx 10-325 mg TAB] Warfarin [Coumadin] 2 mg PO QPM 30 Days tablet 03/29/18 Unknown Rx levETIRAcetam [Keppra TAB] 500 mg PO BID@0600,1800 #60 tablet 03/29/18 Unknown Rx ALBUTEROL Inhaler (OR & NICU) 2 puff IH QID PRN #1 inhalation 08/08/18 Unknown Rx [ProAir HFA Inhaler] Azithromycin [Zithromax Z-SHANI] 250 mg PO DAILY #6 tablet 08/08/18 Unknown Rx Benzonatate [Tessalon Perles] 100 mg PO Q8HR #10 capsule 08/08/18 Unknown Rx predniSONE [Deltasone] 20 mg PO QDAY #5 tab 08/08/18 Unknown Rx ED Neuro Physical Exam - General Limitations: Language Barrier, Altered Mental Status General appearance: alert, in no apparent distress Suspected Stroke: Yes - NIHSS Assessment Interval: Baseline 1a. Level of Consciousness: alert/keenly responsive 1b. LOC Questions: answers no questions correctly 1c. LOC Commands: performs tasks correctly 2. Best Gaze: normal 3. Visual: no visual loss 4. Facial Palsy: partial paralysis 5b. Motor Arm Right: no drift 5a. Motor Arm Left: no drift 6a. Motor Leg Left: no gravity effort 6b. Motor Leg Right: no drift 7. Limb Ataxia: absent 8. Sensory: normal 9. Best Language: mild/moderate aphasia 10. Dysarthria: normal 11. Extinction/Inattention: no abnormality Total Score: 8 Stroke Severity: Moderate Stroke ED Course Vital Signs 08/31/19 08/31/19 17:53 18:13 Temperature 97.6 F Pulse Rate 103 H Respiratory 16 16 Rate Blood Pressure 161/68 Blood Pressure 161/68 [Left] O2 Sat by Pulse 98 Oximetry Critical care attestation.: If time is entered above; I have spent that time in minutes in the direct care of this critically ill patient, excluding procedure time. ED Disposition Clinical Impression: Weakness Disposition: DC-09 OP ADMIT IP TO THIS HOSP Is pt being admited?: Yes Condition: Stable
[2019-08-31 19:07] LABS: Basophils # (Auto) 0.1 K/mm3 (0.0-0.1); Basophils % (Auto) 1.1 % (0.0-1.8); Eosinophils % (Auto) 0.3 % (0.0-4.3); Hematocrit 34.4 % (30.3-42.9); Hemoglobin 11.2 gm/dl (10.1-14.3); Lymphocytes # (Auto) 0.6 K/mm3 (1.2-5.4); Lymphocytes % (Auto) 6.5 % (13.4-35.0); Mean Corpuscular HGB Conc 32 % (30-34); Mean Corpuscular Volume 81 fl (79-97); Monocytes # (Auto) 0.7 K/mm3 (0.0-0.8); Monocytes % (Auto) 7.8 % (0.0-7.3); Platelet Count 396 K/mm3 (140-440); Red Blood Count 4.26 M/mm3 (3.65-5.03)
[2019-08-31 19:08] LABS: Red Cell Distribution Width 20.4 % (13.2-15.2)
--- NOTE | 2019-08-31 19:15 | Cat Scan Report ---
CT HEAD WITHOUT CONTRAST INDICATION / CLINICAL INFORMATION: Weakness. TECHNIQUE: All CT scans at this location are performed using CT dose reduction for ALARA by means of automated e xposure control. COMPARISON: Head CT 08/07/2019 and 03/25/2018. FINDINGS: HEMORRHAGE: There is a large right-sided subdural collection. This low-attenuation collection measure s a maximum of 2.4 cm in greatest thickness. There is prominent mass effect with effacement of cortic al sulci over the lateral convexity of the right cerebral hemisphere. There are about 11 or 12 mm of right to left midline shift at the level of the septum pellucidum. There is no indication of uncal he rniation. There is partial effacement of the posterior body, occipital horn and atria of the right la teral ventricle. Also demonstrated is a large mixed attenuation right-sided tentorial subdural hemato ma measuring about 12 mm in greatest thickness. This contributes to mass effect and effacement of the atria and occipital horn of the left lateral ventricle. The tentorial hematoma extends up along the right lateral aspect of the falx posteriorly. EXTRA-AXIAL SPACES: Cortical sulci over the convexity of the left cerebral hemisphere enlarged reflec ting age related atrophy in this 79-year-old individual. VENTRICULAR SYSTEM: Compression of the right lateral ventricle secondary to the patient's large right parietal subdural hematoma is noted as described above. There is expected dilatation of the frontal horn of the left lateral ventricle. The left lateral ventricle is not significantly changed in size i n comparison to previous study. CEREBRAL PARENCHYMA: A remote small deep infarction is observed in th e region of the head of caudate nucleus and anterior limb internal capsule on the left. MIDLINE SHIFT OR HERNIATION: 11 to 12 mm of right to left midline shift are noted at the level of the septum pellucidum. CEREBELLUM / BRAINSTEM: Brainstem has an unremarkable appearance. Moderate cerebellar atrophy is note d. Findings suggest remote right cerebellar infarction. INTRACRANIAL VESSELS: Calcified atherosclerot ic plaque is present along the course of the cavernous segments of both internal carotid arteries. ORBITS: Status post right-sided cataract surgery. No additional abnormality. SOFT TISSUES of HEAD: No significant abnormality. CALVARIUM: Evaluation of bone windows reveals no abnormalities. PARANASAL SINUSES / MASTOID AIR CELLS: Evidence of chronic right maxillary sinusitis. Metallic fragme nts are present in the deep face near the pterygopalatine recess. Correlation with surgical history i s advised. These findings are unchanged. IMPRESSION: 1. Large, right-sided low-attenuation subdural hematoma with mass effect resulting in about 11 to 12 mm of midline shift at the level of the septum pellucidum. 2. Large right-sided tentorial subdural hematoma extending up along the right side of the falx. Critical result: Time of discovery: 1755 Central standard time Notification: I called report of this study to Dr. Alvarado at the [facility] e mergency department at about 1802 Central standard time. Signer Name: Anthony Alejandre MD Signed: 08/31/2019 7:11 PM Workstation Name: [id number]
[2019-08-31 19:20] LABS: BUN/Creatinine Ratio 69; Blood Urea Nitrogen 62 mg/dL (7-17); Calcium 9.6 mg/dL (8.4-10.2); Hemolysis Index 0; INR 14.75 (0.87-1.13); Partial Thromboplastin Time 76.7 Sec. (24.2-36.6)
[2019-08-31 19:21] LABS: Alanine Aminotransferase 37 units/L (7-56); Albumin 3.6 g/dL (3.9-5); BUN/Creatinine Ratio 68; Blood Urea Nitrogen 61 mg/dL (7-17); Calcium 9.6 mg/dL (8.4-10.2); Hemolysis Index 0
[2019-08-31] MEDS ORDERED: PHYTONADIONE(ADULT ONLY) 10 MG in SODIUM CHLORIDE 0.9% 50 ML IV ONE (19:36)
[2019-08-31] MEDS ORDERED: levETIRAcetam 1000 MG/NS 0.75% 1,000 MG/100 ML BAG IV ONE (20:13)
[2019-08-31 21:09] VITALS: BP 155/65
== END 2019-08-31 21:10 | disposition other institution (70) ==
LOC: ED 17:53
DX: R53.1 Weakness (principal); R29.810 Facial weakness; I10 Essential (primary) hypertension; Z86.73 Personal history of transient ischemic attack (TIA), and cerebral infarction without residual deficits; Z90.89 Acquired absence of other organs; Z98.890 Other specified postprocedural states
CPT/HCPCS: 36415; 70450; 71045; 80048; 80053; 82962; 84484; 85025; 85610; 85670; 85730; 93005; 93010; 96365; 96375; 99285; J1953; J3430